=== PATIENT | female | born 1950 | race Caucasian/White ===

== ENCOUNTER 2016-07-02 12:09 | Emergency (ER) | payer OTHER ==
[~2016-07-02] VITALS: Ht 154.9 cm; Wt 49.0 kg
[~2016-07-02 12:09] MED LIST: IBUP400T22 PO; ULT50 PO
[2016-07-02 12:20] VITALS: Ht 154.9 cm; Wt 49.0 kg
--- NOTE | 2016-07-02 14:05 | ERD ---
ER Documentation Chief Complaint Date/Time DATE: 07/02/16 Chief Complaint Right foot erythema HPI The patient is a 65-year-old female with a history of hypertension and sciatica who presents to the Emergency Department with complaint of erythema of the right foot. The patient reports that two weeks ago she developed a small wound/ blister near the interdigital webspace between the third and fourth toes of the right foot. Since, she has developed spreading erythema, warmth and tenderness from that region, that extends to the dorsum of the foot and recently, towards the right pretibial region. She denies any fevers, chills, vomiting, myalgias. She describes the pain as aching in nature, and worse with palpation and weightbearing activity. The pain is improved with Tramadol (which she has been taking for her sciatica). She denies any numbness or weakness of the distal extremity. ROS All systems reviewed and are negative except as per history of present illness. Medications Home Meds Active Scripts Cephalexin* (Keflex*) 500 Mg Capsule, 500 MG PO QID for 7 Days, CAP Prov:DAMARIS MOSER PA-C 07/02/16 Sulfamethoxazole-Trimethoprim* (Bactrim* DS) 800-160 Mg Tab, 1 TAB PO BID for 10 Days, TAB Prov:DAMARIS MOSER PA-C 07/02/16 Tramadol HCl (Tramadol HCl) 50 Mg Tablet, 50 MG PO Q4 Y for PAIN, #20 TAB Prov:DAMARIS MOSER PA-C 07/02/16 Ibuprofen* (Motrin*) 400 Mg Tab, 400 MG PO Q6H Y for PAIN, #20 TAB Prov:RADHA WITT MD 06/04/16 Tramadol HCl (Tramadol HCl) 50 Mg Tablet, 50 MG PO Q4 Y for PAIN, #20 TAB Prov:RADHA WITT MD 06/04/16 Allergies Allergies: Coded Allergies: No Known Allergy (Unverified , 10/13/12) PMhx/Soc History of Surgery: Yes Anesthesia Reaction: No Hx Neurological Disorder: No Hx Respiratory Disorders: No Hx Psychiatric Problems: No Hx Miscellaneous Medical Probl: No Hx Alcohol Use: Yes (DAILY) Hx Substance Use: No Hx Tobacco Use: Yes Physical Exam Vitals Vital Signs Date Time Temp Pulse Resp B/P Pulse Ox O2 Delivery O2 Flow Rate FiO2 07/02/16 12:20 97.3 77 20 134/75 98 Physical Exam GENERAL: Well-developed, well-nourished, in no acute distress HEENT: Head is normocephalic, atraumatic. No scleral pallor or icterus. Pupils equal, round and reactive to light. Conjunctiva pink. Moist mucous membranes. Clear oropharynx. No lip or tongue swelling. NECK: Supple. Full range of motion. RESPIRATORY: Lungs are clear to auscultation bilaterally. Equal breath sounds. CARDIOVASCULAR: Regular rate and rhythm. S1 and S2 normal. No tachycardia. GASTROINTESTINAL: Abdomen is soft, non-tender, and non-distended. Normal bowel sounds. EXTREMITIES: No clubbing, cyanosis, or edema. Moving all extremities. Distal pulses are palpable, 2+ bilaterally. Capillary refill is less than 2 seconds. Compartments are soft. MUSCULOSKELETAL: No injury or deformities. NEUROLOGIC: The patient is alert, awake, and oriented x 3. No focal neurologic deficits. Gait is observed and normal. No ataxia. INTEGUMENT: Small open wound with minimal purulence to the interdigital webspace between the 3rd and 4th digits of the right foot. There is overlying warmth, erythema, and tenderness that extends from the region of the wound proximally to the dorsum of the right foot, and minimally with few red streaks to the right pretibial region. No crepitus. No skin sloughing. Compartments are soft. PSYCHIATRIC: Appropriate; Cooperative. Results 24 hrs Laboratory Tests Test 07/02/16 14:40 Bedside Glucose 105mg/dL Procedures/MDM This is a 65-year-old female presenting to the emergency department with complaint of spreading erythema surrounding a wound. The patient had a small wound to the interdigital webspace between the 3rd and 4th digits of the right foot, with overlying erythema, warmth and tenderness that extends proximally to the dorsum of the foot with minimal red/lymphatic streaking to the right pretibial region. However, the patient's oropharynx and airway was patent, and exhibited no breathing difficulties, wheezing, tongue swelling or lip swelling. Her vital signs were normal, and she was afebrile, with no recent history of fevers or chills. The differential diagnosis includes, but is not limited to, allergic reaction, insect bite, fungal infection, cellulitis, MRSA, impetigo, shingles, herpes simplex virus, burn, abscess, dermatitis, viral syndrome, candidiasis, medication reaction, Chauhan Syd syndrome, epidermolysis bullosa, toxic epidermal necrolysis, meningococcemia. After rest, the patient has no new complaints, and the patient remains stable with appropriate vital signs and no signs of respiratory distress. Upon my review and interpretation of the patient's presentation and overall ER course, I believe the patient's symptoms are most consistent with wound with surrounding cellulitis of right lower extremity. The patient's case was discussed with ED supervising physician, Dr. Bates, who evaluated the patient bedside. He discussed IV antibiotics vs. oral antibiotics with the patient, as well as inpatient admission for IV antibiotics vs. discharge home with oral antibiotics. Through shared decision-making, the patient and Dr. Bates agreed upon discharge home at this time, with no laboratory analysis, no IV antibiotics, and with prescriptions for Bactrim DS, Keflex and Tramadol for pain. Strict return precautions were given, and the patient was advised to return immediately for any new or worsening symptoms. At this time the patient is in stable condition and therefore can be discharged home with prescriptions for Tramadol, Bactrim and Keflex, and strict return precautions for signs of deteriorating or worsening condition. The patient is strongly advised to follow up with her primary care provider within 2 days for wound check, reevaluation and further management, or return to the ER sooner for worsening symptoms. Additionally, she is advised to return sooner if she notices the erythema spreading beyond the current borders. I shared my medical decision making and plan with the patient at length and in great detail, and she verbally understands and agrees with the plan for further observation and care as an outpatient. At the time of discharge all questions were answered. Departure Diagnosis: Primary Impression: Cellulitis of right lower extremity Additional Impression: Open wound of right foot Encounter type: initial encounter Qualified Code: S91.301A - Open wound of right foot, initial encounter Condition: Stable Patient Instructions: Cellulitis Referrals: SIGRID JOHNSON DPM Additional Instructions: Follow up in 2 days for reevaluation and further management. Return to the ED sooner for any new or worsening symptoms, including spreading redness, development of fevers, vomiting, or any other concerning symptoms. DAMARIS MOSER PA-C Jul 02, 2016 14:05
[2016-07-02] MEDS ORDERED: CEPH-443 PO (14:06)
[2016-07-02] MEDS ORDERED: BACTDS PO (14:06)
[2016-07-02] MEDS ORDERED: ULT50 PO (14:06)
[2016-07-07] MEDS ORDERED: LOSA25TA47 PO (17:41)
== END 2016-07-02 15:01 | disposition home or self-care (01) ==
LOC: FTE 12:09
DX: L03.115 Cellulitis of right lower limb (principal); I10 Essential (primary) hypertension; X58.XXXA Exposure to other specified factors, initial encounter; Y92.9 Unspecified place or not applicable; Z87.891 Personal history of nicotine dependence
CPT/HCPCS: 82962; Z7502; 99284

== ENCOUNTER 2016-07-07 14:20 | Inpatient (IN) | payer OTHER ==
[~2016-07-07] VITALS: Ht 154.9 cm; Wt 44.1 kg
[~2016-07-07 14:20] MED LIST changes: +BACTDS PO; +CEPH-443 PO; +TRAM50TA2 PO; -ULT50 PO
--- NOTE | 2016-07-07 15:46 | ERA ---
ER Documentation Chief Complaint Date/Time DATE: 07/07/16 TIME: 15:45 Chief Complaint BIB RA FOR EVAL OF RIGHT TOE PAIN HPI The patient is a 65-year-old female, presenting to the ER because of right foot pain for the last week. She was seen in the ER for 5 days ago and treated with Keflex and Bactrim without any response. The pain is 9/10, worse with walking. She denies fever, chills, neck pain, chest pain, dyspnea, abdominal pain, vomiting, dysuria, diarrhea. She thought it began from a blister at the base of the right third and fourth toes. She smokes half a pack a day, drinks socially Past medical history: Hypertension Past surgical history: Hysterectomy ROS All systems reviewed and are negative except as per history of present illness. Medications Home Meds Active Scripts Cephalexin* (Keflex*) 500 Mg Capsule, 500 MG PO QID for 7 Days, CAP Prov:DAMARIS MOSER PA-C 07/02/16 Sulfamethoxazole-Trimethoprim* (Bactrim* DS) 800-160 Mg Tab, 1 TAB PO BID for 10 Days, TAB Prov:DAMARIS MOSER PA-C 07/02/16 Tramadol HCl (Tramadol HCl) 50 Mg Tablet, 50 MG PO Q4 Y for PAIN, #20 TAB Prov:DAMARIS MOSER PA-C 07/02/16 Ibuprofen* (Motrin*) 400 Mg Tab, 400 MG PO Q6H Y for PAIN, #20 TAB Prov:RADHA WITT MD 06/04/16 Tramadol HCl (Tramadol HCl) 50 Mg Tablet, 50 MG PO Q4 Y for PAIN, #20 TAB Prov:RADHA WITT MD 06/04/16 Allergies Allergies: Coded Allergies: No Known Allergy (Unverified , 10/13/12) PMhx/Soc History of Surgery: Yes Anesthesia Reaction: No Hx Neurological Disorder: No Hx Respiratory Disorders: No Hx Psychiatric Problems: No Hx Miscellaneous Medical Probl: No Hx Alcohol Use: No Hx Substance Use: No Hx Tobacco Use: No Physical Exam Vitals Vital Signs Date Time Temp Pulse Resp B/P Pulse Ox O2 Delivery O2 Flow Rate FiO2 07/07/16 17:14 Nasal Cannula 07/07/16 17:09 97.9 62 18 126/62 98 Room Air 07/07/16 14:26 97.5 75 16 135/70 100 Physical Exam Const: [] Head: Atraumatic Eyes: Normal Conjunctiva ENT: Normal External Ears, Nose and Mouth. Neck: Full range of motion..~ No meningismus. Resp: Clear to auscultation bilaterally Cardio: Regular rate and rhythm, no murmurs Abd: Soft, non tender, non distended. Normal bowel sounds Skin: No petechiae or rashes Back: No midline or flank tenderness Ext: No cyanosis, or edema Neur: Awake and alert Psych: Normal Mood and Affect Result Diagram: 07/07/16 1610 07/07/16 1610 Results 24 hrs Laboratory Tests Test 07/07/16 16:10 Activated Partial Thromboplast Time 24.9Sec Alanine Aminotransferase (ALT/SGPT) 16IU/L Albumin 4.2g/dl Albumin/Globulin Ratio 1.02 Alkaline Phosphatase 96IU/L Anion Gap 19 Aspartate Amino Transf (AST/SGOT) 16IU/L Blood Urea Nitrogen 12mg/dl Calcium Level 10.0mg/dl Carbon Dioxide Level 22mmol/L Chloride Level 101mmol/L Creatinine 0.82mg/dl Direct Bilirubin 0.00mg/dl Globulin 4.10g/dl Glucose Level 112mg/dl Hematocrit 44.1% Hemoglobin 15.1g/dl INR International Normalized Ratio 0.93 Indirect Bilirubin 0.1mg/dl Lactic Acid Level 1.4mmol/L Lymphocytes # 0.810^3/ul Lymphocytes % 6.0% Mean Corpuscular Hemoglobin 33.3pg Mean Corpuscular Hemoglobin Concent 34.3g/dl Mean Corpuscular Volume 97.2fl Mean Platelet Volume 9.3fl Monocytes # 0.710^3/ul Monocytes % 5.0% Neutrophils # 11.810^3/ul Neutrophils % 89.0% Platelet Count 63936^3/UL Potassium Level 3.2mmol/L Prothrombin Time 12.5Sec Prothrombin Time Ratio 1.0 Red Blood Count 4.5410^6/ul Red Cell Distribution Width 12.6% Sodium Level 139mmol/L Total Bilirubin 0.1mg/dl Total Protein 8.3g/dl White Blood Count 13.310^3/ul Current Medications Medications (Trade) Dose Ordered Sig/Maureen Route PRN Reason Start Time Stop Time Status Last Admin Dose Admin Vancomycin HCl 250 ml @ 125 mls/hr ONCE IVPB 07/07/16 16:00 07/07/16 17:59 Piperacillin Sod/ Tazobactam Sod (Zosyn 3.375gm/ 100 ml (Pmx)) 100 ml @ 200 mls/hr ONCE ONCE IVPB 07/07/16 16:00 07/07/16 16:29 DC 07/07/16 16:48 Morphine Sulfate (morphine) 4 mg ONCE STAT IV 07/07/16 16:28 07/07/16 16:29 DC 07/07/16 16:48 Ondansetron HCl (Zofran Inj) 4 mg ONCE STAT IV 07/07/16 16:28 07/07/16 16:29 DC 07/07/16 16:47 Potassium Chloride (Klor-Con 20) 40 meq ONCE STAT PO 07/07/16 17:20 07/07/16 17:23 DC Procedures/MDM EKG: Read by emergency physician Rate/Rhythm: Normal Sinus Rhythm 60 beats per min QRS, ST, T-waves: No ST elevation, no T wave inversion, PVC, nonspecific ST abnormality Impression: Abnormal EKG [place] [address] Radiology Main Line: [phone] DIAGNOSTIC IMAGING REPORT Patient: TAYLOR MITTAL : 1950 Age: 65 Sex: F MR #: [id number] DOS: 07/07/16 1600 Ordering MD: RINA CHEUNG MD Location: E/R Room/Bed: PROCEDURE: Right foot series CLINICAL INDICATION: Pain TECHNIQUE: Three views. COMPARISON: None FINDINGS: Soft tissue swelling is present of the fourth and fifth distal digits. The appearance of an acute nondisplaced fracture of the fifth distal phalangeal tuft is noted. No evidence for intra-articular extension is present. No radio dense foreign bodies are present. The joint spaces are well maintained. Generalized osteopenia is present. Mild joint space narrowing is present of the first metatarsal phalangeal joint and the first interphalangeal joint. No evidence to suggest osteomyelitis is noted. IMPRESSION: 1. Soft tissue swelling of the distal fourth and fifth digits. 2. Nondisplaced , closed, fracture of the fifth distal phalangeal tuft without intra-articular extension. 3. Mild joint space narrowing of the first metatarsophalangeal and first interphalangeal joint. RPTAT: HDC .Sandy Dee MD, MD Date Time Electronically viewed and signed by .Sandy Dee MD, MD on 07/07/2016 17: 02 .C/ CC: RINA CHEUNG MD [place] [address] Radiology Main Line: [phone] DIAGNOSTIC IMAGING REPORT Patient: TAYLOR MITTAL : 1950 Age: 65 Sex: F MR #: [id number] DOS: 07/07/16 1600 Ordering MD: RINA CHEUNG MD Location: FTE Room/Bed: PROCEDURE: XR Chest. CLINICAL INDICATION: Sepsis. Cough. TECHNIQUE: Single frontal view. COMPARISON: None. FINDINGS: The lungs are clear. The heart size is normal. There is no pleural effusion. There is no pneumothorax. IMPRESSION: 1. Normal chest radiograph. RPTAT: QQ .Radha Villarreal MD, MD Date Time Electronically viewed and signed by .Radha Villarreal MD, MD on 07/07/2016 16:47 .R/ CC: RINA CHEUNG MD MEDICAL MAKING DECISION: The patient is a 65-year-old female, presenting with acute right foot cellulitis, failed outpatient therapy acute hypokalemia. she was treated with vancomycin IV, Zosyn IV, morphine 4 mg IV for pain, Zofran 4 IV for nausea and potassium chloride 40 mEq p.o. she had an x-ray that shows a fracture at the right fifth distal phalanx, however she has no tenderness Departure Diagnosis: Primary Impression: Cellulitis of right foot Additional Impressions: Hypokalemia Fracture of fifth toe, right, closed Condition: Stable Comments I discussed the findings with the patient. I discussed the patient with his physician Dr. Dietz who was made aware of the lab, the treatment, the patient condition. The patient is admitted to medical surgery bed at 5:25 PM RINA CHEUNG MD Jul 07, 2016 15:46
[2016-07-07] MEDS ORDERED: VANCOMYCIN 1 GM (PMX) 250 ML IVPB SCH (16:00)
[2016-07-07] MEDS ORDERED: PIPER-TAZO 3.375 GM IV (PMX) 100 ML IVPB ONE (16:00)
[2016-07-07] MEDS ORDERED: ONDANSETRON 4 MG INJ IV STA (16:28)
[2016-07-07] MEDS ORDERED: morphine 4 MG/ML VIAL IV STA (16:28)
[2016-07-07 16:36] LABS: HEMATOCRIT 44.1 % (37.0-47.0); HEMOGLOBIN 15.1 g/dl (12.0-16.0); MEAN CORPUSCULAR HEMOGLOBIN 33.3 pg (29.0-33.0); MEAN CORPUSCULAR HGB CONC 34.3 g/dl (32.0-37.0); MEAN CORPUSCULAR VOLUME 97.2 fl (82.0-101.0); MEAN PLATELET VOLUME 9.3 fl (7.4-10.4); PLATELET COUNT 267 10^3/UL (140-440); RED BLOOD COUNT 4.54 10^6/ul (4.20-5.40); RED CELL DISTRIBUTION WIDTH 12.6 % (11.5-14.5); UNCORRECTED WBC 13.3 10^3/ul (4.8-10.8); WHITE BLOOD COUNT 13.3 10^3/ul (4.8-10.8)
[2016-07-07 16:38] LABS: CONDITION 1; LH ANALYZER COMMENTS 1
[2016-07-07 16:43] LABS: ALBUMIN 4.2 g/dl (3.3-4.9)
[2016-07-07 16:44] LABS: POTASSIUM 3.2 mmol/L (3.5-5.1)
[2016-07-07 16:46] LABS: ALBUMIN/GLOBULIN RATIO 1.02; BILIRUBIN,INDIRECT 0.1 mg/dl (0-1.1); BILIRUBIN,TOTAL 0.1 mg/dl (0.2-1.3); CREATININE 0.82 mg/dl (0.44-1.00); INR 0.93; PROTIME 12.5 Sec (12.2-14.2); TOTAL PROTEIN 8.3 g/dl (6.1-8.1)
[2016-07-07 16:47] LABS: PARTIAL THROMBOPLASTIN TIME 24.9 Sec (25.0-35.0)
--- NOTE | 2016-07-07 16:47 | RADRPT ---
PROCEDURE: XR Chest. CLINICAL INDICATION: Sepsis. Cough. TECHNIQUE: Single frontal view. COMPARISON: None. FINDINGS: The lungs are clear. The heart size is normal. There is no pleural effusion. There is no pneumothorax. IMPRESSION: 1. Normal chest radiograph. RPTAT: QQ .Kendrick Villarreal MD, Date Time Electronically viewed and signed by .Kendrick Villarreal MD, on 07/07/2016 16:47 .R/
--- NOTE | 2016-07-07 17:03 | RADRPT ---
PROCEDURE: Right foot series CLINICAL INDICATION: Pain TECHNIQUE: Three views. COMPARISON: None FINDINGS: Soft tissue swelling is present of the fourth and fifth distal digits. The appearance of an acute n ondisplaced fracture of the fifth distal phalangeal tuft is noted. No evidence for intra-articular extension is present. No radio dense foreign bodies are present. The joint spaces are well maintai ermias. Generalized osteopenia is present. Mild joint space narrowing is present of the first metatar padmini phalangeal joint and the first interphalangeal joint. No evidence to suggest osteomyelitis is n oted. IMPRESSION: 1. Soft tissue swelling of the distal fourth and fifth digits. 2. Nondisplaced , closed, fracture of the fifth distal phalangeal tuft without intra-articular exte nsion. 3. Mild joint space narrowing of the first metatarsophalangeal and first interphalangeal joint. RPTAT: HDC .Sandy Dee MD, Date Time Electronically viewed and signed by .Sandy Dee MD, on 07/07/2016 17:02 .C/
[2016-07-07] MEDS ORDERED: POTASSIUM CHLORIDE (SR) 20 MEQ TAB PO STA (17:20)
[2016-07-07 17:29] LABS: LYMPHOCYTES # 0.8 10^3/ul (0.8-2.9); MONOCYTE # 0.7 10^3/ul (0.3-0.9); NEUTROPHIL # 11.8 10^3/ul (1.6-7.5)
[2016-07-07] MEDS ORDERED: LOSA25TA2 PO (17:41)
[2016-07-07] MEDS ORDERED: AMLO-147 PO (17:41)
[2016-07-07] MEDS ORDERED: ATOR20TA38 PO (17:41)
[2016-07-07] MEDS ORDERED: METO-407 PO (17:41)
[2016-07-07] MEDS ORDERED: HYD25 PO (17:42)
[2016-07-07] MEDS ORDERED: SILVER SULFADIAZINE 1% 50 GM CR TOP ONE (18:30)
[2016-07-07 19:00] VITALS: BP 150/66; RESP 19
[2016-07-07] MEDS ORDERED: NACL 0.9% 3 ML SYG IV SCH (19:00)
[2016-07-07] MEDS ORDERED: ONDANSETRON 4 MG INJ IV PRN (19:00)
[2016-07-07] MEDS ORDERED: BISACODYL (EC) 5 MG TAB PO PRN (19:00)
[2016-07-07] MEDS ORDERED: MAGNESIUM HYDROXIDE 30ML CUP PO PRN (19:00)
[2016-07-07] MEDS ORDERED: ZOLPIDEM 5 MG TAB PO PRN (19:00)
[2016-07-07] MEDS ORDERED: ACETAMINOPHEN 325 MG TAB PO PRN (19:00)
[2016-07-07] MEDS ORDERED: VANCOMYCIN IV PER PHARMACY XX SCH (19:00)
[2016-07-07 19:12] VITALS: TEMP 97.7
[2016-07-07] MEDS ORDERED: hydrALAzine 20 MG INJ IV PRN (19:30)
--- NOTE | 2016-07-07 19:35 | RADRPT ---
PROCEDURE: US Lower extremity Arteries. CLINICAL INDICATION: Nonhealing right foot ulcer. TECHNIQUE: Multiple longitudinal and transverse images of the bilateral lower extremity arteries w ere obtained with biggs scale and color Doppler imaging. COMPARISON: No prior studies are available for comparison. FINDINGS: Location RightWaveform EIA90.9 cm/secmonophasic CFA47.8 cm/secmonophasic DFA56.2 cm/secmonophasic PSFA40.0 cm/secmonophasic MSFA35.3 cm/secmonophasic DSFA59.1 cm/secmonophasic POP23.9 cm/secmonophasic LeftWaveform CWL664.4 cm/secmonophasic TEM301.2 cm/secmonophasic WZY503.1 cm/secmonophasic XKFF540.2 cm/secmonophasic VNQM512.6 cm/secmonophasic DSFA65.1 cm/secmonophasic POP46.9 cm/secmonophasic The bilateral lower extremity arteries are heavily calcified. The major bilateral calf arteries are not visualized. Collateral arteries with monophasic waveforms are noted in both calves. IMPRESSION: 1. Heavy calcification of bilateral extremity arteries. 2. Monophasic waveforms throughout the visualized bilateral extremity arteries, indicative of inflow disease due to upstream stenoses. 3. Elevated peak systolic velocities within the left lower extremity, from the external iliac arter y through the mid superficial femoral artery, indicative of multifocal stenoses. This could be furth er evaluated with a CTA runoff if clinically warranted. 4. The major bilateral calf arteries are not visualized. Collateral arteries with monophasic wavefo kathi are noted in both calves. RPTAT: HTAR .Willam Michaud MD, Date Time Electronically viewed and signed by .Willam Michaud MD, on 07/07/2016 19:35 .R/
[2016-07-07 20:00] VITALS: BP 150/66; PULSE 67; RESP 19; Ht 154.9 cm; Wt 44.1 kg
[2016-07-07] MEDS: ATORVASTATIN 20 MG TAB PO SCH (20:17)
[2016-07-07] MEDS: METOPROLOL 100 MG TAB PO SCH (20:18)
[2016-07-07] MEDS: FAMOTIDINE 20 MG TAB PO SCH (20:18)
[2016-07-07] MEDS: morphine 2 MG INJ IV PRN (20:20)
--- NOTE | 2016-07-07 20:21 | HP ---
DATE OF ADMISSION: 07/07/2016 TIME OF EVALUATION: 1830 REASON FOR ADMISSION: Right foot cellulitis, failed outpatient treatment. CONSULTATIONS: 1. Milo Ratliff D.P.M. Podiatry. 2. Dr. Lowell Melendez, Infectious Disease. HISTORY OF PRESENT ILLNESS: This is a 65-year-old female with past medical history of essential hypertension, dyslipidemia and sciatica who came to the emergency room with a chief complaint of worsening right foot wound. The patient was evaluated in the ER on 07/02/2016 with the same complaints, and the patient was discharged home on antibiotics. The patient's wound was not getting better, and hence the patient came back to the emergency room today. The patient had this wound between her right 3rd and 4th toe that started developing as a blister with subsequent erythema and pain. The patient denied any obvious injuries to the area of interest. The patient denied any insect bites or spider bites. However, the patient verbalized that she has been around "in a place where there are spiders." The patient denied any associated fevers or chills. The patient verbalized right foot pain and numbness. There was no reported pruritus. In the emergency room, the patient was afebrile. She was treated with IV vancomycin and IV Zosyn. The patient underwent a right foot x-ray in the emergency room that showed soft-tissue swelling of the distal 4th and 5th digits with a nondisplaced closed fracture of the 5th distal phalangeal tuft without intra-articular extension. PAST MEDICAL HISTORY: Essential hypertension, dyslipidemia. PAST SURGICAL HISTORY: Hysterectomy. HOME MEDICATIONS: 1. Amlodipine 10 mg p.o. daily. 2. Atorvastatin 20 mg p.o. at bedtime. 3. Cozaar 25 mg p.o. daily. 4. Lopressor 100 mg p.o. b.i.d. 5. Hydrochlorothiazide 25 mg p.o. daily. 6. Tramadol 50 mg p.o. q.4 hours p.r.n. pain. ALLERGIES: NO KNOWN DRUG ALLERGIES. SOCIAL HISTORY: The patient lives at home. Denies any history of tobacco, alcohol or illicit drug use. REVIEW OF SYSTEMS: A 12-point review of systems was made, and the review of systems is negative other than what is mentioned in the history of present illness. PHYSICAL EXAMINATION: VITAL SIGNS: Temperature 97.9, pulse rate 62, respiratory rate 18, blood pressure 126/62, oxygen saturation 96% on room air. GENERAL: This is a well-built, well-nourished female lying in bed in no apparent distress. HEENT: Head normocephalic and atraumatic. Eyes: Anicteric sclerae. Conjunctivae clear. ENT: Nasal septum is midline. Oral mucosa is moist. NECK: Supple. No JVD noticed. RESPIRATORY: Bilaterally clear to auscultation. No adventitious breath sounds. No use of accessory muscles of respiration. CARDIAC: Regular rate and rhythm. No murmurs heard. ABDOMEN: Soft, nontender, nondistended. Bowel sounds positive in all 4 quadrants. GENITOURINARY: Deferred. EXTREMITIES: No cyanosis, no clubbing, no edema. Peripheral pulses palpable. Right foot erythema between the 3rd and 4th digits with radiation of erythema on the dorsal surface with tenderness to touch in the area. NEUROLOGIC: The patient is awake, alert and oriented. Cranial nerves are grossly intact. LABORATORY AND DIAGNOSTIC DATA: WBC 13.3, hemoglobin 15.1, hematocrit 44.1, platelet count 267. Sodium 139, potassium 3.2, chloride 101, carbon dioxide 22 , anion gap 19, BUN 12, creatinine 0.82, glucose 112, calcium 10.0, AST 16, alkaline phosphatase 96, albumin 4.2. PT 12.5, INR 0.93, APTT 24.9. Right foot x-ray. Soft-tissue swelling of the distal 4th and 5th digits. Nondisplaced closed fracture of the distal phalangeal tuft without intra- articular extension. Mild joint space narrowing of the 1st metatarsophalangeal and 1st interphalangeal joint. Chest x-ray. Normal chest radiograph. Twelve-lead EKG. Normal sinus rhythm. IMPRESSION: This is a 65-year-old female who has a right foot cellulitis that has failed outpatient treatment who will get admitted here for further treatment and evaluation. ASSESSMENT AND PLAN: 1. Right foot cellulitis. The patient was seen and evaluated by Podiatry. Podiatry is planning for debridement of ulceration and avulsion of the right hallux ingrown nail. The patient will be provided with adequate pain control. The patient will be started on appropriate antibiotics. Infectious Diseases will be called for antibiotic management. 2. Essential hypertension. The patient's home antihypertensives will be resumed. The patient will also be started on p.r.n. antihypertensives for any systolic blood pressure readings greater than 160 mmHg. 3. Dyslipidemia. The patient's statins will be resumed. A fasting lipid panel will be obtained. PLAN: The patient will be admitted to inpatient medical/surgical floor. The patient will be started on a low-cholesterol diet. She will be started on DVT prophylaxis and gastrointestinal prophylaxis. The patient will remain a FULL CODE. The rest of the patient's management will be based on the clinical course , the results of diagnostic studies, and inputs from consultants. Based on the patient's clinical presentation, she most probably requires at least 2-midnights' stay for further management and evaluation of her clinical presentation. The case and management of this patient was fully discussed with Dr. Dietz. Approximately 50 minutes was spent on the history and physical of this patient. BOBY DIETZ MD, AM/ASAEL Conf#: [id number] DID#: [id number] MTDD
--- NOTE | 2016-07-07 21:40 | CONS ---
DATE OF ADMISSION: 07/07/2016 DATE OF CONSULTATION: 07/07/2016 REASON FOR CONSULTATION: Right foot cellulitis. HISTORY OF PRESENT ILLNESS: This is a 65-year-old female who had a blister to the right foot, was seen in the ER a week ago, and discharged with Bactrim and Keflex. The patient with worsening on findings. She relates pain to the right foot with worsening redness. The patient currently in the process of being admitted. PAST MEDICAL HISTORY: Hypertension, history of tobacco use. PAST SURGICAL HISTORY: Hysterectomy. REVIEW OF SYSTEMS: Right foot pain, worse with ambulation. Denies any fever, nausea, vomiting, chills. MEDICATIONS: Include: 1. Keflex. 2. Bactrim. 3. Tramadol. 4. Ibuprofen. ALLERGIES: NO KNOWN DRUG ALLERGIES. PHYSICAL EXAMINATION: VITAL SIGNS: Temperature 97.9, pulse is 62, respiratory rate 18, blood pressure 126/62, pulse ox is 98 per nasal cannula, 2 liters. EXTREMITIES: The patient has 1+ DP bilaterally, 2+ PT, 2+ popliteal pulses bilaterally. The patient has ulceration within the third and fourth interspace with necrosis of skin and subcutaneous tissue. There is a malodor present. There is ascending cellulitis of the dorsal aspect of the foot and ankle with lymphangitis. The patient has pain with passive range of motion of the toes, third and fourth. The patient has 5/5 dorsiflexion, plantar flexion of the right ankle. The patient has ingrowing nail to the right hallux, medial border. LABORATORY DATA: WBC 13.3, hemoglobin 15.1, hematocrit 40.1, platelets 267. Sodium 139, potassium 3.2, chloride 101, CO2 of 22, BUN 12, creatinine 0.8, glucose 112. X-rays reveal soft tissue swelling of the fourth and fifth toes, nondisplaced closed fracture of the fifth distal phalangeal tuft, and mild joint space narrowing of the first MPJ and IPJ. Chest x-ray: Lungs clear. Heart size is normal. No pleural effusion, no pneumothorax. Culture results are pending. ASSESSMENT: 1. Right foot cellulitis. 2. Failed outpatient oral antibiotics. 3. Ulceration right foot, third and fourth toes, with necrosis of skin and subcutaneous tissue. 4. Ingrowing nail, right hallux, medial border. PLAN: The patient seen and evaluated. Initiate empiric antibiotics. The patient on vancomycin and Zosyn. Obtain wound cultures. Observe for clinical response. Discussed debridement and partial nail avulsion of the right hallux nail. Noninvasive arterial studies ordered. Further decision making pending clinical response. Thank you for this consultation. We will continue to follow along. Dictated By: CARLOS HAQUE/ASAEL Conf#: [id number] DID#: [id number] CC: MAYA STOUT MD;*EndCC* MTDD
[2016-07-07] MEDS: PIPER-TAZO 3.375 GM IV (PMX) 100 ML IVPB SCH (22:43)
[2016-07-07 22:46] VITALS: BP 112/59; PULSE 52; RESP 18
[2016-07-08] MEDS ORDERED: SILVER SULFADIAZINE 1% 50 GM CR TOP ONE (02:00)
[2016-07-08] MEDS: PIPER-TAZO 3.375 GM IV (PMX) 100 ML IVPB SCH ×3 (05:43→21:47)
[2016-07-08] MEDS: morphine 2 MG INJ IV PRN ×4 (05:48→20:41)
[2016-07-08 06:35] LABS: BASOPHILS % 0.3 % (0.0-2.0); EOSINOPHILS # 0.1 10^3/ul (0.0-0.5); EOSINOPHILS % 0.8 % (0.0-7.0); HEMOGLOBIN 13.3 g/dl (12.0-16.0); LYMPHOCYTES # 1.1 10^3/ul (0.8-2.9); LYMPHOCYTES % 16.1 % (15.0-51.0); MEAN CORPUSCULAR HEMOGLOBIN 33.6 pg (29.0-33.0); MEAN CORPUSCULAR VOLUME 98.7 fl (82.0-101.0); MONOCYTE # 0.4 10^3/ul (0.3-0.9); MONOCYTES % 5.8 % (0.0-11.0); NEUTROPHIL # 5.5 10^3/ul (1.6-7.5); PLATELET COUNT 227 10^3/UL (140-440); RED BLOOD COUNT 3.95 10^6/ul (4.20-5.40); RED CELL DISTRIBUTION WIDTH 12.6 % (11.5-14.5); UNCORRECTED WBC 7.1 10^3/ul (4.8-10.8); WHITE BLOOD COUNT 7.1 10^3/ul (4.8-10.8)
[2016-07-08 06:36] LABS: ALBUMIN 3.3 g/dl (3.3-4.9)
[2016-07-08 06:37] LABS: POTASSIUM 4.6 mmol/L (3.5-5.1)
[2016-07-08 06:39] LABS: ALBUMIN/GLOBULIN RATIO 1.17; BILIRUBIN,INDIRECT 0.1 mg/dl (0-1.1); BILIRUBIN,TOTAL 0.1 mg/dl (0.2-1.3); CREATININE 0.63 mg/dl (0.44-1.00); TOTAL PROTEIN 6.1 g/dl (6.1-8.1)
[2016-07-08 06:40] LABS: CALCIUM 9.4 mg/dl (8.4-10.2)
[2016-07-08 06:43] LABS: CHOL/HDL RATIO 4.5 RATIO; PHOSPHORUS 2.9 mg/dl (2.5-4.9)
[2016-07-08 06:46] LABS: CONDITION 1
[2016-07-08 07:12] LABS: THYROID STIMULATING HORMONE 0.994 MIU/L (0.465-4.680)
[2016-07-08 07:19] VITALS: BP 124/59; RESP 19
[2016-07-08 07:22] VITALS: BP 101/49; RESP 19
--- NOTE | 2016-07-08 07:42 | PN ---
Date/Time of Note Date/Time of Note DATE: 07/08/16 TIME: 07:42 Assessment/Plan VTE Prophylaxis VTE Prophylaxis Intervention: LMWH Lines/Catheters IV [facility] (from [facility] Saline Lock Assessment/Plan Chief Complaint/Hosp Course 1. Right foot cellulitis. The patient was seen and evaluated by Podiatry. Podiatry is planning for debridement of ulceration and avulsion of the right hallux ingrown nail. The patient will be provided with adequate pain control. The patient will be maintained on appropriate antibiotics. 2. Essential hypertension. Continue routine antihypertensives. Continue p.r.n. antihypertensives for any systolic blood pressure readings greater than 160 mmHg. 3. Dyslipidemia. Continue statins. 4. Fluids, electrolytes, and nutrition. Low cholesterol diet. 5. DVT prophylaxis. Subcutaneous Lovenox. 6. Gastrointestinal prophylaxis. Histamine 2 receptor blockers. 7. Plan. Continue pain control. Continue antibiotics. Await further recommendations from podiatry and infectious diseases. Case discussed with Dr. Dietz. Problems: Subjective 24 Hr Interval Summary Free Text/Dictation Complains of right foot pain. Exam/Review of Systems Vital Signs Vitals Vital Signs Date Time Temp Pulse Resp B/P Pulse Ox O2 Delivery O2 Flow Rate FiO2 07/08/16 07:22 98.1 64 19 101/49 98 07/07/16 20:00 Room Air Intake and Output 07/07/16 07/07/16 07/08/16 15:00 23:00 07:00 Intake Total 200 ml Balance 200 ml Exam GENERAL: This is a well-built, well-nourished female lying in bed in no apparent distress. HEENT: Head normocephalic and atraumatic. Eyes: Anicteric sclerae. Conjunctivae clear. ENT: Nasal septum is midline. Oral mucosa is moist. NECK: Supple. No JVD noticed. RESPIRATORY: Bilaterally clear to auscultation. No adventitious breath sounds. No use of accessory muscles of respiration. CARDIAC: Regular rate and rhythm. No murmurs heard. ABDOMEN: Soft, nontender, nondistended. Bowel sounds positive in all 4 quadrants. GENITOURINARY: Deferred. EXTREMITIES: No cyanosis, no clubbing, no edema. Peripheral pulses palpable. Right foot erythema between the 3rd and 4th digits with radiation of erythema on the dorsal surface with tenderness to touch in the area. NEUROLOGIC: The patient is awake, alert and oriented. Cranial nerves are grossly intact. Results Result Diagram: 07/08/16 0519 07/08/16 0519 Results 24 hrs Laboratory Tests Test 07/07/16 16:10 07/07/16 18:00 07/07/16 20:50 07/08/16 05:19 Activated Partial Thromboplast Time 24.9 L Alanine Aminotransferase (ALT/SGPT) 16 18 Albumin 4.2 3.3 Albumin/Globulin Ratio 1.02 1.17 Alkaline Phosphatase 96 74 Anion Gap 19 H 17 H Aspartate Amino Transf (AST/SGOT) 16 13 L Blood Urea Nitrogen 12 11 Calcium Level 10.0 9.4 Carbon Dioxide Level 22 22 Chloride Level 101 108 Creatinine 0.82 0.63 Direct Bilirubin 0.00 0.00 Erythrocyte Sedimentation Rate 51 H Globulin 4.10 H 2.80 Glucose Level 112 76 Hematocrit 44.1 39.0 Hemoglobin 15.1 13.3 INR International Normalized Ratio 0.93 Indirect Bilirubin 0.1 0.1 Lactic Acid Level 1.4 1.1 1.0 Lymphocytes # 0.8 1.1 Lymphocytes % 6.0 L 16.1 Mean Corpuscular Hemoglobin 33.3 H 33.6 H Mean Corpuscular Hemoglobin Concent 34.3 34.0 Mean Corpuscular Volume 97.2 98.7 Mean Platelet Volume 9.3 10.0 Monocytes # 0.7 0.4 Monocytes % 5.0 5.8 Neutrophils # 11.8 H 5.5 Neutrophils % 89.0 H 77.0 Platelet Count 267 227 Potassium Level 3.2 L 4.6 Prothrombin Time 12.5 Prothrombin Time Ratio 1.0 Red Blood Count 4.54 3.95 L Red Cell Distribution Width 12.6 12.6 Sodium Level 139 142 Total Bilirubin 0.1 L 0.1 L Total Protein 8.3 H 6.1 # White Blood Count 13.3 H 7.1 # Basophils # 0.0 Basophils % 0.3 Cholesterol Level 173 Cholesterol/HDL Ratio 4.5 Eosinophils # 0.1 Eosinophils % 0.8 Free Thyroxine 1.05 HDL Cholesterol 38 Hemoglobin A1c 5.0 LDL Cholesterol, Calculated 105 Magnesium Level 2.0 Nucleated Red Blood Cells # 0.0 Nucleated Red Blood Cells % 0.0 Phosphorus Level 2.9 Thyroid Stimulating Hormone (TSH) 0.994 Triglycerides Level 151 H Medications Medications Current Medications Ondansetron HCl (Zofran Inj) 4 mg Q6H PRN IV NAUSEA AND/OR VOMITING; Start 07/07 at 19:00 Acetaminophen (Tylenol Tab) 650 mg Q6H PRN PO PAIN LEVEL 1-3 OR FEVER; Start at 19:00 Acetaminophen/ Hydrocodone Bitart ([place] (5/325)) 1 tab Q6H PRN PO MODERATE PAIN LEVEL 4-6; Start 07/07/16 at 19:00 Morphine Sulfate (morphine) 2 mg Q4H PRN IV SEVERE PAIN LEVEL 7-10 Last administered on 07/08/16 05:48; Admin Dose 2 MG; Start 07/07/16 at 19:00 Magnesium Hydroxide (Milk Of Mag) 30 ml DAILY PRN PO CONSTIPATION; Start at 19:00 Bisacodyl (Dulcolax) 5 mg DAILY PRN PO CONSTIPATION; Start 07/07/16 at 19:00 Zolpidem Tartrate (Ambien) 5 mg QHS PRN PO SLEEP; Start 07/07/16 at 19:00 Famotidine (Pepcid) 20 mg Q12 PO Last administered on 07/07/16 20:18; Admin Dose 20 MG; Start 07/07/16 at 21:00 Enoxaparin Sodium (Lovenox) 40 mg DAILY SC ; Start 07/08/16 at 09:00 Amlodipine Besylate (Norvasc) 10 mg DAILY PO ; Start 07/08/16 at 09:00 Atorvastatin Calcium (Lipitor) 20 mg QHS PO Last administered on 07/07/16 20:17 ; Admin Dose 20 MG; Start 07/07/16 at 21:00 Hydrochlorothiazide (Hydrochlorothiazide) 25 mg DAILY PO ; Start 07/08/16 at 09: 00 Losartan Potassium (Cozaar) 25 mg DAILY PO ; Start 07/08/16 at 09:00 Metoprolol Tartrate 100 mg 100 mg BID PO Last administered on 07/07/16 20:18; Admin Dose 100 MG; Start 07/07/16 at 21:00 Piperacillin Sod/ Tazobactam Sod (Zosyn 3.375gm/ 100 ml (Pmx)) 100 ml @ 200 mls /hr Q8 IVPB Last administered on 07/08/16 05:43; Admin Dose 200 MLS/HR; Start 07/07/16 at 22:00 Hydralazine HCl 10 mg 10 mg Q6H PRN IV SBP>160; Start 07/07/16 at 19:30 Vancomycin HCl/ Sodium Chloride (Vancocin/NS) 250 ml @ 83.333 mls/ hr Q24H IVPB ; Start 07/08/16 at 09:00 BOBY MACHUCA NP Jul 08, 2016 07:42
[2016-07-08] MEDS ORDERED: VANCOMYCIN 1.5 GM in SOD CHLORIDE 0.9% 250 ML IVPB SCH (09:00)
[2016-07-08] MEDS: METOPROLOL 100 MG TAB PO SCH ×2 (09:00→20:40)
[2016-07-08 10:49] LABS: ADD UMIC YES; URINE BILIRUBIN (Dip) NEGATIVE (NEGATIVE); URINE BLOOD (Dip) 1+ (NEGATIVE); URINE COLOR LT. YELLOW (YELLOW); URINE GLUCOSE (Dip) NEGATIVE (NEGATIVE); URINE KETONES (Dip) NEGATIVE (NEGATIVE); URINE LEUKOCYTE ESTERASE (Dip) NEGATIVE (NEGATIVE); URINE NITRITE (Dip) NEGATIVE (NEGATIVE); URINE TOTAL PROTEIN (Dip) NEGATIVE (NEGATIVE); URINE UROBILINOGEN (Dip) 0.2 E.U./dL (0.1-1.0)
[2016-07-08 11:05] LABS: SQUAMOUS EPITHELIAL CELL,UR FEW; URINE RBCS 0-2 /HPF (0)
[2016-07-08] MEDS: LOSARTAN 25 MG TAB PO SCH (11:10)
[2016-07-08] MEDS: FAMOTIDINE 20 MG TAB PO SCH ×2 (11:10→20:40)
[2016-07-08] MEDS: AMLODIPINE 10 MG TAB PO SCH (11:11)
[2016-07-08] MEDS: ENOXAPARIN 40 MG/0.4 ML SYG SC SCH (11:19)
[2016-07-08] MEDS: HYDROCHLOROTHIAZIDE 25 MG TAB PO SCH (11:21)
[2016-07-08 11:39] LABS: BARBITURATES Negative (NEGATIVE); BENZODIAZEPINES Negative (NEGATIVE); CANNABINOIDS Negative (NEGATIVE); COCAINE Negative (NEGATIVE); OPIATES Positive (NEGATIVE)
--- NOTE | 2016-07-08 12:10 | CONS ---
DATE OF ADMISSION: 07/07/2016 DATE OF CONSULTATION: 07/08/2016 INFECTIOUS DISEASE CONSULTATION REASON FOR CONSULTATION: Antibiotic management. HISTORY OF PRESENT ILLNESS: Nupur Mancilla is a 65-year-old white female with numerous problems includ ing essential hypertension, dyslipidemia, and sciatica. She comes in with right foot cellulitis whi ch failed outpatient treatment. The patient was seen in the emergency room on July 02, wa s discharged on home antibiotics, was not getting better. She had a wound involving her right third and fourth toe that started developing a blister. She was seen in the emergency room, started on I V vancomycin and Zosyn. A right foot x-ray showed soft tissue swelling of the fourth and fifth digi ts with nondisplaced closed fracture of the fifth distal phalangeal tuft without intraarticular exte nsion. PAST PROBLEMS: Include: 1. Essential hypertension. 2. Dyslipidemia. 3. Status post hysterectomy. LABORATORY DATA: On admission, her white count was 13.3, H and H 15.1 and 44.1, platelet count 267, 000 with BUN and creatinine of 12/0.82. X-ray showed soft tissue swelling of the fourth and fifth d igits, nondisplaced closed fracture of the distal phalangeal tuft without intraarticular extension. PAST MEDICAL HISTORY: Operations as outlined. FAMILY HISTORY: Noncontributory. SOCIAL HISTORY: She does not smoke, drink, or abuse drugs. ALLERGIES: NONE TO PENICILLIN, SULFA, OR FOODS. MEDICATIONS: Per chart. REVIEW OF SYSTEMS: Noncontributory. PHYSICAL EXAMINATION: GENERAL: The patient is a well-developed, well-nourished female who is alert, responsive, in no acu te distress. VITAL SIGNS: Stable. She is afebrile. SKIN: Without generalized rash. HEENT: Within normal limits. NECK: Supple. LYMPH NODES: None palpable. CHEST: Decreased breath sounds at the bases. HEART: Without murmur or gallop. ABDOMEN: Soft, nontender, without organosplenomegaly or masses. EXTREMITIES: Without cyanosis, clubbing, or edema. Right foot erythema between the third and fourt h toe with radiation of erythema on the dorsal surface with tenderness to touch in that area. RECTAL AND GENITAL: Deferred. NEUROLOGIC: No focal neurological abnormality. IMPRESSION AND PLAN: The patient has right foot cellulitis. She was seen and evaluated by podiatry . We are going to continue her on antibiotic therapy. She is currently on vancomycin and Zosyn. I will dictate my findings to the hospitalist and to Dr. Ratliff. Dictated By: GUSTAVO PUGH MD, JD/ASAEL Conf#: [id number] DID#: [id number]
[2016-07-08 19:00] VITALS: BP 128/61; RESP 18
--- NOTE | 2016-07-08 20:19 | CONS ---
DATE OF ADMISSION: 07/07/2016 DATE OF CONSULTATION: 07/08/2016 SUBJECTIVE FINDINGS: The patient being followed for her right foot cellulitis, ulceration between t he third and fourth toes. Discussed surgical debridement. The patient had arterial noninvasives, w hich revealed monophasic flow. The patient has history of smoking and currently with unresolved sandra lulitis and persistent necrosis of skin with dusky appearance to the third and fourth toes on the ri ght foot. PHYSICAL EXAMINATION: VITAL SIGNS: Temperature 98.5, pulse is 76, respiratory rate 18, blood pressure 128/61, pulse ox is 98%. GENERAL: The patient alert and oriented, no acute distress. LUNGS: Regular respiration. HEAD: Normocephalic, atraumatic. EXTREMITIES: The patient has ingrowing nail to the right medial hallux. There is ulceration with a dusky appearing third and fourth toes. Malodor present. Cellulitis of the dorsal foot and ankle. Persistent lymphangitis. There is pain with palpation of the toes. The patient has 1+ DP, 2+ PT, 2+ popliteal. IMAGING: Chest x-ray, normal. Extremity arterial study: Heavy calcification, monophasic waveforms . MICROBIOLOGY: Blood cultures are no growth. LABORATORIES: WBC 7.1, hemoglobin 13.3, hematocrit 39, platelets 227. Sed rate is 51. ASSESSMENT: 1. Peripheral arterial disease, history of tobacco use. 2. Cellulitis, left foot and ankle. 3. Gangrene, right third and fourth toes. PLAN: Continue antibiotics. Reviewed noninvasive arterial studies. Dr. Fields consulted and ayanna sterling may require a CT versus angiography. The patient at risk for amputation. Would hold off on d ebridement until further diagnostic testing and intervention performed. Discussed with the patient at risk for loss of toes. The patient currently on vancomycin and Zosyn. Continue to monitor clini mary response. Dictated By: CARLOS CRAWFORD DPM RB/ASAEL Conf#: [id number] DID#: [id number] CC: MAYA STOUT MD;*EndCC*
[2016-07-08] MEDS: ATORVASTATIN 20 MG TAB PO SCH (20:40)
[2016-07-09] MEDS: morphine 2 MG INJ IV PRN ×5 (01:26→20:20)
[2016-07-09] MEDS: PIPER-TAZO 3.375 GM IV (PMX) 100 ML IVPB SCH ×3 (05:49→22:54)
[2016-07-09 06:34] LABS: BASOPHIL # 0.1 10^3/ul (0.0-0.1); BASOPHILS % 0.8 % (0.0-2.0); EOSINOPHILS # 0.1 10^3/ul (0.0-0.5); EOSINOPHILS % 0.7 % (0.0-7.0); HEMATOCRIT 38.9 % (37.0-47.0); HEMOGLOBIN 13.5 g/dl (12.0-16.0); LYMPHOCYTES # 1.7 10^3/ul (0.8-2.9); LYMPHOCYTES % 23.6 % (15.0-51.0); MEAN CORPUSCULAR HEMOGLOBIN 33.8 pg (29.0-33.0); MEAN CORPUSCULAR HGB CONC 34.8 g/dl (32.0-37.0); MEAN CORPUSCULAR VOLUME 97.2 fl (82.0-101.0); MEAN PLATELET VOLUME 9.7 fl (7.4-10.4); MONOCYTE # 0.4 10^3/ul (0.3-0.9); NEUTROPHIL # 4.9 10^3/ul (1.6-7.5); NEUTROPHILS % 68.9 % (39.0-77.0); PLATELET COUNT 212 10^3/UL (140-440); RED CELL DISTRIBUTION WIDTH 12.9 % (11.5-14.5); UNCORRECTED WBC 7.2 10^3/ul (4.8-10.8); WHITE BLOOD COUNT 7.2 10^3/ul (4.8-10.8)
[2016-07-09 06:47] LABS: POTASSIUM 3.7 mmol/L (3.5-5.1)
[2016-07-09 06:49] LABS: CONDITION 1
[2016-07-09 06:50] LABS: CREATININE 0.65 mg/dl (0.44-1.00)
[2016-07-09 06:51] LABS: CALCIUM 9.3 mg/dl (8.4-10.2)
[2016-07-09 06:52] LABS: MAGNESIUM 1.9 mg/dl (1.7-2.5)
[2016-07-09 07:38] VITALS: BP 137/67; RESP 18
[2016-07-09] MEDS: AMLODIPINE 10 MG TAB PO SCH (08:54)
[2016-07-09] MEDS: HYDROCHLOROTHIAZIDE 25 MG TAB PO SCH (08:55)
[2016-07-09] MEDS: METOPROLOL 100 MG TAB PO SCH ×2 (08:55→20:20)
[2016-07-09] MEDS: LOSARTAN 25 MG TAB PO SCH (08:55)
[2016-07-09] MEDS: FAMOTIDINE 20 MG TAB PO SCH ×2 (08:55→20:19)
[2016-07-09] MEDS: ENOXAPARIN 40 MG/0.4 ML SYG SC SCH (09:00)
--- NOTE | 2016-07-09 11:15 | PN ---
Date/Time of Note Date/Time of Note DATE: 07/09/16 TIME: 11:10 Assessment/Plan VTE Prophylaxis VTE Prophylaxis Intervention: LMWH Lines/Catheters [facility] Saline Lock Assessment/Plan Chief Complaint/Hosp Course 1. Right foot cellulitis. The patient was seen and evaluated by Podiatry. Podiatry is planning for debridement of ulceration and avulsion of the right hallux ingrown nail. The patient will be provided with adequate pain control. The patient will be maintained on appropriate antibiotics. 2. Essential hypertension. Continue routine antihypertensives. Continue p.r.n. antihypertensives for any systolic blood pressure readings greater than 160 mmHg. 3. Dyslipidemia. Continue statins. 4. Peripheral vascular disease. Arterial Doppler showing elevated peak systolic velocities within the left lower extremity, from the external iliac artery through the mid superficial femoral artery, indicative of multifocal stenoses. The patient was evaluated by vascular surgeon. Pending further workup. Will start the patient on antiplatelet therapy. 5. Fluids, electrolytes, and nutrition. Low cholesterol diet. 6. DVT prophylaxis. Subcutaneous Lovenox. 7. Gastrointestinal prophylaxis. Histamine 2 receptor blockers. 8. Plan. Continue pain control. Continue antibiotics. Await further recommendations from podiatry and vascular surgery. Case discussed with Dr. Dietz. Problems: Subjective 24 Hr Interval Summary Free Text/Dictation Still having right foot pain. On analgesics. Exam/Review of Systems Vital Signs Vitals Vital Signs Date Time Temp Pulse Resp B/P Pulse Ox O2 Delivery O2 Flow Rate FiO2 07/09/16 07:38 98.1 62 18 137/67 93 07/07/16 20:00 Room Air Intake and Output 07/08/16 07/08/16 07/09/16 15:00 23:00 07:00 Intake Total 450 ml 100 ml Balance 450 ml 100 ml Exam GENERAL: This is a well-built, well-nourished female lying in bed in no apparent distress. HEENT: Head normocephalic and atraumatic. Eyes: Anicteric sclerae. Conjunctivae clear. ENT: Nasal septum is midline. Oral mucosa is moist. NECK: Supple. No JVD noticed. RESPIRATORY: Bilaterally clear to auscultation. No adventitious breath sounds. No use of accessory muscles of respiration. CARDIAC: Regular rate and rhythm. No murmurs heard. ABDOMEN: Soft, nontender, nondistended. Bowel sounds positive in all 4 quadrants. GENITOURINARY: Deferred. EXTREMITIES: No cyanosis, no clubbing, no edema. Peripheral pulses palpable. Bilateral pedal pulses diminished. Right foot erythema between the 3rd and 4th digits with radiation of erythema on the dorsal surface with tenderness to touch in the area. NEUROLOGIC: The patient is awake, alert and oriented. Cranial nerves are grossly intact. Results Result Diagram: 07/09/16 0600 07/09/16 0600 Results 24 hrs Laboratory Tests Test 07/09/16 06:00 Anion Gap 15 Basophils # 0.1 Basophils % 0.8 Blood Urea Nitrogen 10 Calcium Level 9.3 Carbon Dioxide Level 26 Chloride Level 105 Creatinine 0.65 Eosinophils # 0.1 Eosinophils % 0.7 Glucose Level 98 Hematocrit 38.9 Hemoglobin 13.5 Lymphocytes # 1.7 Lymphocytes % 23.6 Magnesium Level 1.9 Mean Corpuscular Hemoglobin 33.8 H Mean Corpuscular Hemoglobin Concent 34.8 Mean Corpuscular Volume 97.2 Mean Platelet Volume 9.7 Monocytes # 0.4 Monocytes % 6.0 Neutrophils # 4.9 Neutrophils % 68.9 Nucleated Red Blood Cells # 0.0 Nucleated Red Blood Cells % 0.0 Phosphorus Level 3.0 Platelet Count 212 Potassium Level 3.7 Random Vancomycin Level 8.9 Red Blood Count 4.00 L Red Cell Distribution Width 12.9 Sodium Level 142 White Blood Count 7.2 Medications Medications Current Medications Ondansetron HCl (Zofran Inj) 4 mg Q6H PRN IV NAUSEA AND/OR VOMITING; Start 07/07 at 19:00 Acetaminophen (Tylenol Tab) 650 mg Q6H PRN PO PAIN LEVEL 1-3 OR FEVER; Start at 19:00 Acetaminophen/ Hydrocodone Bitart ([place] (5/325)) 1 tab Q6H PRN PO MODERATE PAIN LEVEL 4-6; Start 07/07/16 at 19:00 Morphine Sulfate (morphine) 2 mg Q4H PRN IV SEVERE PAIN LEVEL 7-10 Last administered on 07/09/16t 10:09; Admin Dose 2 MG; Start 07/07/16 at 19:00 Magnesium Hydroxide (Milk Of Mag) 30 ml DAILY PRN PO CONSTIPATION; Start at 19:00 Bisacodyl (Dulcolax) 5 mg DAILY PRN PO CONSTIPATION; Start 07/07/16 at 19:00 Zolpidem Tartrate (Ambien) 5 mg QHS PRN PO SLEEP; Start 07/07/16 at 19:00 Famotidine (Pepcid) 20 mg Q12 PO Last administered on 07/09/16 08:55; Admin Dose 20 MG; Start 07/07/16 at 21:00 Enoxaparin Sodium (Lovenox) 40 mg DAILY SC Last administered on 07/08/16 11:19 ; Admin Dose 40 MG; Start 07/08/16 at 09:00 Amlodipine Besylate (Norvasc) 10 mg DAILY PO Last administered on 07/09/16 08: 54; Admin Dose 10 MG; Start 07/08/16 at 09:00 Atorvastatin Calcium (Lipitor) 20 mg QHS PO Last administered on 07/08/16 20: 40; Admin Dose 20 MG; Start 07/07/16 at 21:00 Hydrochlorothiazide (Hydrochlorothiazide) 25 mg DAILY PO Last administered on 08:55; Admin Dose 25 MG; Start 07/08/16 at 09:00 Losartan Potassium (Cozaar) 25 mg DAILY PO Last administered on 07/09/16 08:55 ; Admin Dose 25 MG; Start 07/08/16 at 09:00 Metoprolol Tartrate 100 mg 100 mg BID PO Last administered on 07/09/16 08:55; Admin Dose 100 MG; Start 07/07/16 at 21:00 Piperacillin Sod/ Tazobactam Sod (Zosyn 3.375gm/ 100 ml (Pmx)) 100 ml @ 200 mls /hr Q8 IVPB Last administered on 07/09/16 05:49; Admin Dose 200 MLS/HR; Start 07/07/16 at 22:00 Hydralazine HCl 10 mg 10 mg Q6H PRN IV SBP>160; Start 07/07/16 at 19:30 Vancomycin HCl (Vancocin) 250 ml @ 125 mls/hr Q12H IVPB ; Start 07/09/16 at 11: 00 BOBY MACHUCA NP Jul 09, 2016 11:15
[2016-07-09] MEDS ORDERED: IODIXANOL LOCM 100 ML BTL ONE (12:04)
[2016-07-09] MEDS ORDERED: SOD CHLORIDE 0.9% 100 ML ONE (12:04)
[2016-07-09] MEDS ORDERED: IODIXANOL LOCM 50 ML BTL ONE (12:05)
[2016-07-09] MEDS: VANCOMYCIN 1 GM in NS 250 ML IVPB SCH ×2 (12:53→23:30)
--- NOTE | 2016-07-09 13:51 | CONS ---
DATE OF ADMISSION: 07/07/2016 DATE OF CONSULTATION: REASON FOR CONSULTATION: Peripheral vascular disease. Thank you, Dr. Ratliff, for asking me to see this patient. HISTORY OF PRESENT ILLNESS: A 65-year-old female, admitted with essential hypertension, dyslipidemi a, sciatic through the emergency room with gangrene of the right toes. Patient is currently being t reated with antibiotics and local wound care, was found to have poor pulses. Ultrasound was done wh ich showed heavy calcification bilateral lower extremity arterial system, monophasic waveforms in bi lateral lower extremity arteries, possibly secondary to aortoiliac disease. The patient also has el evated systolic systemic velocities in the mid superficial femoral artery indicative of multiple chema noses. PAST MEDICAL HISTORY: Significant for no diabetes foot but patient does smoke. ALLERGIES: NONE. SOCIAL HISTORY: Positive for smoking. MEDICATIONS: List reviewed which is: 1. Amlodipine. 2. Atorvastatin. 3. Cozaar 4. Lopressor. 5. Hydrochlorothiazide. 6. Tylenol. PHYSICAL EXAMINATION: GENERAL: The patient is awake, alert, responds appropriately. VITAL SIGNS: Blood pressure is 137/67, pulse 62, respirations 18, saturations 93% on room air. HEENT: Normocephalic, atraumatic. PERRLA. NECK: Supple. No JVD, no carotid bruits. CARDIOVASCULAR: Regular rate and rhythm. Normal S1, S2. LUNGS: Clear. ABDOMEN: Soft. EXTREMITIES: Warm down to the knee. They become cool from the knee down. There are palpable femor al pulses. Popliteal and pedal pulses are not palpable. LABORATORY VALUES: Significant for a white count 7.2, hemoglobin 13.5, platelet count 212 and a cre atinine level of 0.65. IMPRESSION: Peripheral vascular disease with gangrene of the right distal foot. RECOMMENDATIONS: We will proceed with a CT angiogram to evaluate peripheral arterial disease. Disc ussed with the patient and the family. All questions answered. Dictated By: ORAL WHITAKER/ASAEL Conf#: [id number] DID#: [id number]
[2016-07-09 19:37] VITALS: BP 125/61; RESP 16
[2016-07-09] MEDS: ATORVASTATIN 20 MG TAB PO SCH (20:20)
[2016-07-10] MEDS: PIPER-TAZO 3.375 GM IV (PMX) 100 ML IVPB SCH ×2 (05:32→14:35)
[2016-07-10] MEDS: morphine 2 MG INJ IV PRN ×4 (05:43→21:31)
[2016-07-10 05:50] LABS: BASOPHILS % 0.4 % (0.0-2.0); EOSINOPHILS # 0.1 10^3/ul (0.0-0.5); EOSINOPHILS % 1.2 % (0.0-7.0); HEMATOCRIT 40.6 % (37.0-47.0); LYMPHOCYTES # 1.9 10^3/ul (0.8-2.9); LYMPHOCYTES % 26.2 % (15.0-51.0); MEAN CORPUSCULAR HEMOGLOBIN 33.5 pg (29.0-33.0); MEAN CORPUSCULAR HGB CONC 34.4 g/dl (32.0-37.0); MEAN CORPUSCULAR VOLUME 97.3 fl (82.0-101.0); MEAN PLATELET VOLUME 9.8 fl (7.4-10.4); MONOCYTE # 0.4 10^3/ul (0.3-0.9); MONOCYTES % 6.2 % (0.0-11.0); NEUTROPHIL # 4.7 10^3/ul (1.6-7.5); PLATELET COUNT 230 10^3/UL (140-440); RED BLOOD COUNT 4.17 10^6/ul (4.20-5.40); RED CELL DISTRIBUTION WIDTH 12.5 % (11.5-14.5); UNCORRECTED WBC 7.1 10^3/ul (4.8-10.8); WHITE BLOOD COUNT 7.1 10^3/ul (4.8-10.8)
[2016-07-10 06:03] LABS: CONDITION 1
[2016-07-10 06:19] LABS: POTASSIUM 3.1 mmol/L (3.5-5.1)
[2016-07-10 06:21] LABS: CREATININE 0.58 mg/dl (0.44-1.00)
[2016-07-10 06:22] LABS: CALCIUM 9.6 mg/dl (8.4-10.2)
[2016-07-10 06:48] LABS: PHOSPHORUS 4.3 mg/dl (2.5-4.9)
[2016-07-10 06:49] LABS: MAGNESIUM 1.7 mg/dl (1.7-2.5)
[2016-07-10 07:34] VITALS: BP 115/57; RESP 17
[2016-07-10] MEDS ORDERED: POTASSIUM CHLORIDE (SR) 20 MEQ TAB PO STA (08:19)
--- NOTE | 2016-07-10 08:21 | PN ---
Date/Time of Note Date/Time of Note DATE: 07/10/16 TIME: 08:20 Assessment/Plan VTE Prophylaxis VTE Prophylaxis Intervention: LMWH Lines/Catheters IV Catheter Type (from [facility]): Saline Lock Assessment/Plan Chief Complaint/Hosp Course 1. Right foot cellulitis. The patient was seen and evaluated by Podiatry. Podiatry is planning for debridement of ulceration and avulsion of the right hallux ingrown nail. The patient will be provided with adequate pain control. The patient will be maintained on appropriate antibiotics. Wound culture positive for staph aureus. 2. Essential hypertension. Continue routine antihypertensives. Continue p.r.n. antihypertensives for any systolic blood pressure readings greater than 160 mmHg. 3. Dyslipidemia. Continue statins. 4. Peripheral vascular disease. Arterial Doppler showing elevated peak systolic velocities within the left lower extremity, from the external iliac artery through the mid superficial femoral artery, indicative of multifocal stenoses. The patient was evaluated by vascular surgeon. Pending further workup. Continue antiplatelet therapy. 5. Fluids, electrolytes, and nutrition. Low cholesterol diet. 6. DVT prophylaxis. Subcutaneous Lovenox. 7. Gastrointestinal prophylaxis. Histamine 2 receptor blockers. 8. Plan. Replete potassium. Continue pain control. Continue antibiotics. Await further recommendations from podiatry and vascular surgery. Case discussed with Dr. Dietz. Problems: Subjective 24 Hr Interval Summary Free Text/Dictation The patient remains afebrile. Exam/Review of Systems Vital Signs Vitals Vital Signs Date Time Temp Pulse Resp B/P Pulse Ox O2 Delivery O2 Flow Rate FiO2 07/10/16 07:34 98.3 56 17 115/57 93 07/07/16 20:00 Room Air Intake and Output 07/09/16 07/09/16 07/10/16 15:00 23:00 07:00 Intake Total 710 ml 870 ml Balance 710 ml 870 ml Exam GENERAL: This is a well-built, well-nourished female lying in bed in no apparent distress. HEENT: Head normocephalic and atraumatic. Eyes: Anicteric sclerae. Conjunctivae clear. ENT: Nasal septum is midline. Oral mucosa is moist. NECK: Supple. No JVD noticed. RESPIRATORY: Bilaterally clear to auscultation. No adventitious breath sounds. No use of accessory muscles of respiration. CARDIAC: Regular rate and rhythm. No murmurs heard. ABDOMEN: Soft, nontender, nondistended. Bowel sounds positive in all 4 quadrants. GENITOURINARY: Deferred. EXTREMITIES: No cyanosis, no clubbing, no edema. Peripheral pulses palpable. Bilateral pedal pulses diminished. Right foot erythema between the 3rd and 4th digits with radiation of erythema on the dorsal surface with tenderness to touch in the area. NEUROLOGIC: The patient is awake, alert and oriented. Cranial nerves are grossly intact. Results Result Diagram: 07/10/1651907/10/16519 Results 24 hrs Laboratory Tests Test 07/10/16 05:20 Anion Gap 14 Basophils # 0.0 Basophils % 0.4 Blood Urea Nitrogen 8 Calcium Level 9.6 Carbon Dioxide Level 27 Chloride Level 103 Creatinine 0.58 Eosinophils # 0.1 Eosinophils % 1.2 Glucose Level 101 Hematocrit 40.6 Hemoglobin 14.0 Lymphocytes # 1.9 Lymphocytes % 26.2 Magnesium Level 1.7 Mean Corpuscular Hemoglobin 33.5 H Mean Corpuscular Hemoglobin Concent 34.4 Mean Corpuscular Volume 97.3 Mean Platelet Volume 9.8 Monocytes # 0.4 Monocytes % 6.2 Neutrophils # 4.7 Neutrophils % 66.0 Nucleated Red Blood Cells # 0.0 Nucleated Red Blood Cells % 0.0 Phosphorus Level 4.3 Platelet Count 230 Potassium Level 3.1 L Red Blood Count 4.17 L Red Cell Distribution Width 12.5 Sodium Level 141 White Blood Count 7.1 Medications Medications Current Medications Ondansetron HCl (Zofran Inj) 4 mg Q6H PRN IV NAUSEA AND/OR VOMITING; Start 07/07 at 19:00 Acetaminophen (Tylenol Tab) 650 mg Q6H PRN PO PAIN LEVEL 1-3 OR FEVER; Start at 19:00 Acetaminophen/ Hydrocodone Bitart ([place] (5/325)) 1 tab Q6H PRN PO MODERATE PAIN LEVEL 4-6; Start 07/07/16 at 19:00 Morphine Sulfate (morphine) 2 mg Q4H PRN IV SEVERE PAIN LEVEL 7-10 Last administered on 07/10/16t 05:43; Admin Dose 2 MG; Start 07/07/16 at 19:00 Magnesium Hydroxide (Milk Of Mag) 30 ml DAILY PRN PO CONSTIPATION; Start at 19:00 Bisacodyl (Dulcolax) 5 mg DAILY PRN PO CONSTIPATION; Start 07/07/16 at 19:00 Zolpidem Tartrate (Ambien) 5 mg QHS PRN PO SLEEP; Start 07/07/16 at 19:00 Famotidine (Pepcid) 20 mg Q12 PO Last administered on 07/09/16 20:19; Admin Dose 20 MG; Start 07/07/16 at 21:00 Enoxaparin Sodium (Lovenox) 40 mg DAILY SC Last administered on 07/08/16 11:19 ; Admin Dose 40 MG; Start 07/08/16 at 09:00 Amlodipine Besylate (Norvasc) 10 mg DAILY PO Last administered on 07/09/16 08: 54; Admin Dose 10 MG; Start 07/08/16 at 09:00 Atorvastatin Calcium (Lipitor) 20 mg QHS PO Last administered on 07/09/16 20: 20; Admin Dose 20 MG; Start 07/07/16 at 21:00 Hydrochlorothiazide (Hydrochlorothiazide) 25 mg DAILY PO Last administered on 08:55; Admin Dose 25 MG; Start 07/08/16 at 09:00 Losartan Potassium (Cozaar) 25 mg DAILY PO Last administered on 07/09/16 08:55 ; Admin Dose 25 MG; Start 07/08/16 at 09:00 Metoprolol Tartrate 100 mg 100 mg BID PO Last administered on 07/09/16 20:20; Admin Dose 100 MG; Start 07/07/16 at 21:00 Piperacillin Sod/ Tazobactam Sod (Zosyn 3.375gm/ 100 ml (Pmx)) 100 ml @ 200 mls /hr Q8 IVPB Last administered on 07/10/16 05:32; Admin Dose 200 MLS/HR; Start 07/07/16 at 22:00 Hydralazine HCl 10 mg 10 mg Q6H PRN IV SBP>160; Start 07/07/16 at 19:30 Vancomycin HCl (Vancocin) 250 ml @ 125 mls/hr Q12H IVPB Last administered on 23:30; Admin Dose 125 MLS/HR; Start 07/09/16 at 11:00 Aspirin (Halfprin) 81 mg DAILY PO ; Start 07/10/16 at 09:00 BOBY MACHUCA NP Jul 10, 2016 08:21
[2016-07-10] MEDS: HYDROCHLOROTHIAZIDE 25 MG TAB PO SCH (09:26)
[2016-07-10] MEDS: AMLODIPINE 10 MG TAB PO SCH (09:26)
[2016-07-10] MEDS: ASPIRIN (EC) 81 MG TAB PO SCH (09:27)
[2016-07-10] MEDS: LOSARTAN 25 MG TAB PO SCH (09:27)
[2016-07-10] MEDS: FAMOTIDINE 20 MG TAB PO SCH ×2 (09:27→21:32)
[2016-07-10] MEDS: METOPROLOL 100 MG TAB PO SCH ×2 (09:28→21:32)
[2016-07-10] MEDS: ENOXAPARIN 40 MG/0.4 ML SYG SC SCH (09:31)
[2016-07-10] MEDS: VANCOMYCIN 1 GM in NS 250 ML IVPB SCH ×2 (10:44→11:00)
[2016-07-10] MEDS ORDERED: VANCOMYCIN 500MG/NS (PMX) 100 ML IVPB SCH (12:00)
--- NOTE | 2016-07-10 17:16 | PN ---
DATE: 07/10/2016 SUBJECTIVE: No acute changes. The patient is alert, lying comfortably in bed. No fevers. WBC 7.1, no shift, no bands. BUN 8, creatinine 0.58. MICROBIOLOGY: Right foot wound drainage grew Staphylococcus aureus. DIAGNOSTICS: Extremity arterial study revealed bilateral arteries with inflow disease due to upstre am stenosis. ANTIMICROBIALS: The patient is on vancomycin and Zosyn. PHYSICAL EXAMINATION: GENERAL: Fragile, elderly woman who is alert, in no distress. HEENT: Head atraumatic, normocephalic. Sclerae anicteric. Buccal mucosa dry. NECK: Supple, trachea midline. CHEST: Rise symmetrical. Breath sounds clear. HEART: S1, S2. ABDOMEN: Soft. Bowel tones present. EXTREMITIES: With right foot erythema, necrotic toe and also the toe is cool to touch. ASSESSMENT: 1. Right foot cellulitis with necrotic toe. 2. Severe peripheral arterial disease. 3. Dyslipidemia. 4. Hypertension. PLAN: We are going to change antibiotics to Rocephin as the patient's wound culture grew oxacillin- sensitive Staphylococcus aureus. Follow podiatry and vascular recommendations. Pending CT angiogra m. Dictated By: PENNY BORREGO [employer] for GUSTAVO ARAGON/ASAEL Conf#: [id number] DID#: [id number]
[2016-07-10] MEDS: CEFTRIAXONE 1 GM/50 ML (PMX) 50 ML IVPB SCH (18:17)
--- NOTE | 2016-07-10 18:42 | PN ---
Date/Time of Note Date/Time of Note DATE: 07/10/16 TIME: 18:42 Assessment/Plan Lines/Catheters IV Catheter Type (from [facility]): Saline Lock Assessment/Plan Chief Complaint/Hosp Course IMPRESSION: Peripheral vascular disease with gangrene of the right distal foot. RECOMMENDATIONS: We will proceed with a CT angiogram to evaluate peripheral arterial disease. Discussed with the patient and the family. All questions answered. Problems: Subjective 24 Hr Interval Summary Constitutional: improved Pain Control: mild Exam/Review of Systems Vital Signs Vitals Vital Signs Date Time Temp Pulse Resp B/P Pulse Ox O2 Delivery O2 Flow Rate FiO2 07/10/16 07:34 98.3 56 17 115/57 93 07/07/16 20:00 Room Air Intake and Output 07/09/16 07/09/16 07/10/16 15:00 23:00 07:00 Intake Total 710 ml 870 ml Balance 710 ml 870 ml Exam Neck: non-tender, supple Respiratory: clear to auscultation, normal air movement Cardiovascular: nl pulses, regular rate and rhythm Gastrointestinal: nl liver, spleen, non-tender, soft Results Result Diagram: 07/10/16 0520 07/10/16 0520 ORAL VILLANUEVA MD Jul 10, 2016 18:42
[2016-07-10 19:32] VITALS: BP 117/59; RESP 18
[2016-07-10] MEDS ORDERED: IOHEXOL 350MG/ML 50 ML BTL ONE (20:37)
[2016-07-10] MEDS ORDERED: IOHEXOL 100 ML ONE (20:37)
[2016-07-10] MEDS ORDERED: SOD CHLORIDE 0.9% 100 ML ONE (20:37)
[2016-07-10] MEDS: ATORVASTATIN 20 MG TAB PO SCH (21:32)
--- NOTE | 2016-07-11 06:53 | CONS ---
DATE OF ADMISSION: 07/07/2016 DATE OF CONSULTATION: 07/09/2016 SUBJECTIVE FINDINGS: The patient is being followed for cellulitis and gangrene of the toes on the r ight foot. Given ischemic changes, Dr. Fields was consulted. CT angiogram ordered to evaluate t he extent of peripheral arterial disease. The patient without any acute changes relates persistent pain to the toes on the right foot. PHYSICAL EXAMINATION: VITAL SIGNS: Temperature 98.5, pulse 67, respiratory rate 16, blood pressure 125/61, pulse oximetry is 95%. GENERAL: The patient is alert and oriented, regular respirations. NECK: Trachea is midline. EXTREMITIES: The patient with cellulitis dorsal aspect of the right foot with ischemic changes to t he toes, pain with palpation. LABORATORIES: WBC 7.2, hemoglobin 13.5, hematocrit 38.9, and platelets 212. Sed rate is 15. Stool culture coliform feces with a negative C. diff. Wound culture positive for Staph aureus. CT scan pending. Extremity arterial study, heavy calcification bilateral lower extremity arteries, monophas ic waveforms throughout the bilateral lower extremity arteries, elevated peak systolic velocities. ASSESSMENT: 1. Cellulitis. 2. Lymphangitis. 3. Gangrene of the toes, right foot. 4. Ingrowing nail, right hallux. PLAN: The patient is seen and evaluated and is pending further diagnostic imaging with CT angiogram . Appreciate consultation from Dr. Fields. The patient currently is on vancomycin and Zosyn wit h limited improvement. The patient is at high risk for amputation of toes. Further recommendations pending. Continue daily antiseptic precautions and antimicrobial ointment. We will continue to fo llow. Dictated By: CARLOS HAQUE/ASAEL Conf#: [id number] DID#: [id number]
[2016-07-11 07:47] VITALS: BP 137/73; RESP 20
[2016-07-11] MEDS: morphine 2 MG INJ IV PRN ×4 (07:56→23:07)
--- NOTE | 2016-07-11 08:39 | PN ---
Date/Time of Note Date/Time of Note DATE: 07/11/16 TIME: 08:38 Assessment/Plan VTE Prophylaxis VTE Prophylaxis Intervention: LMWH Lines/Catheters IV [facility] (from [facility] Saline Lock Urinary Cath still in place: No Assessment/Plan Chief Complaint/Hosp Course 1. Right foot cellulitis. The patient was seen and evaluated by Podiatry. The patient will be provided with adequate pain control. The patient will be maintained on appropriate antibiotics. Wound culture positive for staph aureus. 2. Essential hypertension. Continue routine antihypertensives. Continue p.r.n. antihypertensives for any systolic blood pressure readings greater than 160 mmHg. 3. Dyslipidemia. Continue statins. 4. Peripheral vascular disease. Arterial Doppler showing elevated peak systolic velocities within the left lower extremity, from the external iliac artery through the mid superficial femoral artery, indicative of multifocal stenoses. The patient was evaluated by vascular surgeon. Pending further workup. Continue antiplatelet therapy. 5. Fluids, electrolytes, and nutrition. Low cholesterol diet. 6. DVT prophylaxis. Subcutaneous Lovenox. 7. Gastrointestinal prophylaxis. Histamine 2 receptor blockers. 8. Plan. Continue pain control. Continue antibiotics. Await further recommendations from podiatry and vascular surgery. Case discussed with Dr. Dietz. Problems: Subjective 24 Hr Interval Summary Free Text/Dictation Right foot pain well controlled with analgesics. Exam/Review of Systems Vital Signs Vitals Vital Signs Date Time Temp Pulse Resp B/P Pulse Ox O2 Delivery O2 Flow Rate FiO2 07/11/16 07:47 97.8 67 20 137/73 94 07/07/16 20:00 Room Air Intake and Output 07/10/16 07/10/16 07/11/16 15:00 23:00 07:00 Intake Total 100 ml 870 ml 240 ml Output Total 600 ml Balance 100 ml 870 ml -360 ml Exam GENERAL: This is a well-built, well-nourished female lying in bed in no apparent distress. HEENT: Head normocephalic and atraumatic. Eyes: Anicteric sclerae. Conjunctivae clear. ENT: Nasal septum is midline. Oral mucosa is moist. NECK: Supple. No JVD noticed. RESPIRATORY: Bilaterally clear to auscultation. No adventitious breath sounds. No use of accessory muscles of respiration. CARDIAC: Regular rate and rhythm. No murmurs heard. ABDOMEN: Soft, nontender, nondistended. Bowel sounds positive in all 4 quadrants. GENITOURINARY: Deferred. EXTREMITIES: No cyanosis, no clubbing, no edema. Peripheral pulses palpable. Bilateral pedal pulses diminished. Right foot erythema between the 3rd and 4th digits with radiation of erythema on the dorsal surface with tenderness to touch in the area. NEUROLOGIC: The patient is awake, alert and oriented. Cranial nerves are grossly intact. Results Result Diagram: 07/10/1651907/10/16519 Medications Medications Current Medications Ondansetron HCl (Zofran Inj) 4 mg Q6H PRN IV NAUSEA AND/OR VOMITING; Start 07/07 at 19:00 Acetaminophen (Tylenol Tab) 650 mg Q6H PRN PO PAIN LEVEL 1-3 OR FEVER; Start at 19:00 Acetaminophen/ Hydrocodone Bitart ([place] (5/325)) 1 tab Q6H PRN PO MODERATE PAIN LEVEL 4-6; Start 07/07/16 at 19:00 Morphine Sulfate (morphine) 2 mg Q4H PRN IV SEVERE PAIN LEVEL 7-10 Last administered on 07/11/16 07:56; Admin Dose 2 MG; Start 07/07/16 at 19:00 Magnesium Hydroxide (Milk Of Mag) 30 ml DAILY PRN PO CONSTIPATION; Start at 19:00 Bisacodyl (Dulcolax) 5 mg DAILY PRN PO CONSTIPATION; Start 07/07/16 at 19:00 Zolpidem Tartrate (Ambien) 5 mg QHS PRN PO SLEEP; Start 07/07/16 at 19:00 Famotidine (Pepcid) 20 mg Q12 PO Last administered on 07/10/16 21:32; Admin Dose 20 MG; Start 07/07/16 at 21:00 Enoxaparin Sodium (Lovenox) 40 mg DAILY SC Last administered on 07/10/16 09:31 ; Admin Dose 40 MG; Start 07/08/16 at 09:00 Amlodipine Besylate (Norvasc) 10 mg DAILY PO Last administered on 07/10/16 09: 26; Admin Dose 10 MG; Start 07/08/16 at 09:00 Atorvastatin Calcium (Lipitor) 20 mg QHS PO Last administered on 07/10/16 21: 32; Admin Dose 20 MG; Start 07/07/16 at 21:00 Hydrochlorothiazide (Hydrochlorothiazide) 25 mg DAILY PO Last administered on 09:26; Admin Dose 25 MG; Start 07/08/16 at 09:00 Losartan Potassium (Cozaar) 25 mg DAILY PO Last administered on 07/10/16 09:27 ; Admin Dose 25 MG; Start 07/08/16 at 09:00 Metoprolol Tartrate (Lopressor) 100 mg BID PO Last administered on 07/10/16 21 :32; Admin Dose 100 MG; Start 07/07/16 at 21:00 Hydralazine HCl (Apresoline) 10 mg Q6H PRN IV SBP>160; Start 07/07/16 at 19:30 Aspirin 81 mg 81 mg DAILY PO Last administered on 07/10/16 09:27; Admin Dose 81 MG; Start 07/10/16 at 09:00 Ceftriaxone Sodium (Rocephin) 50 ml @ 100 mls/hr Q24H IVPB Last administered on 07/10/16 18:17; Admin Dose 100 MLS/HR; Start 07/10/16 at 15:00 BOBY MACHUCA NP Jul 11, 2016 08:39
[2016-07-11] MEDS: FAMOTIDINE 20 MG TAB PO SCH ×2 (09:20→21:00)
[2016-07-11] MEDS: ASPIRIN (EC) 81 MG TAB PO SCH (09:20)
[2016-07-11] MEDS: AMLODIPINE 10 MG TAB PO SCH (09:21)
[2016-07-11] MEDS: HYDROCHLOROTHIAZIDE 25 MG TAB PO SCH (09:21)
[2016-07-11] MEDS: LOSARTAN 25 MG TAB PO SCH (09:22)
[2016-07-11] MEDS: METOPROLOL 100 MG TAB PO SCH ×2 (09:22→21:34)
[2016-07-11] MEDS: ENOXAPARIN 40 MG/0.4 ML SYG SC SCH (09:28)
--- NOTE | 2016-07-11 14:40 | RADRPT ---
PROCEDURE: CT scan of the abdomen, pelvis, and lower extremities with contrast. CT angiogram of th e abdomen, pelvis, and lower extremities. CLINICAL INDICATION: Abdominal and pelvic pain. Bilateral lower extremity pain. Gangrene of the r ight foot. TECHNIQUE: CT scan of the abdomen, pelvis, and lower extremities with contrast was performed with helical axial sections. The patient was scanned during intravenous administration of 115 ml of Visi paque 320. 2-D coronal reformatted images were obtained from the axial source images. In addition, 3-D post processing was performed. Total exam DLP is 121.31 mGy-cm. CTDIvol is 131.45 mGy. One o r more of the following dose reduction techniques were used: Automated exposure control, adjustment of the mA and/or kV according to patient size, use of iterative reconstruction technique. COMPARISON: Bilateral lower extremity arterial Doppler dated 07/07/2016 which demonstrated monopha sic flow bilaterally. FINDINGS: CT abdomen: The lung bases are normal. There is no pleural effusion or pericardial effusion. The heart size is normal. There is coronary artery calcification. The liver is normal in size and attenuation. There is a probable cyst in the lateral segment of the left hepatic lobe measuring 0.7 cm. There is no other focal hepatic lesion. The gallbladder and bile ducts are normal. The spleen is normal in size. There is no focal splenic lesion. The pancreas is normal with no mass or evidence of pancreatitis. There is a small nodule superiorly in the right adrenal measuring 1.[address] number of 104. T he left adrenal is normal. Both kidneys demonstrate normal contrast enhancement. The right kidney is atrophic measuring 7.5 cm in length with the left kidney measuring 10.9 cm in length. There is no solid renal mass or hydron ephrosis. There is a benign cyst in the mid left kidney laterally measuring 1.3 cm. There is no retroperitoneal lymphadenopathy or mass. The bowel and mesentery are normal. There is no free fluid or free gas. CT pelvis: There is no pelvic lymphadenopathy or mass. The bladder is distended but otherwise unremarkable. The periappendiceal region is unremarkable with no evidence of appendicitis. The bowel and mesentery are normal. There is no free fluid or free gas. CT osseous structures: There are degenerative changes of the spine and sacroiliac joints. There is an old superior end plat e compression fracture of L1 vertebral body. There is no acute fracture or lytic lesion. CT angiogram: The distal thoracic aorta is normal with no aneurysm or dissection. There is mild plaque throughout the wall of the abdominal aorta with no significant stenosis. Calci fication is present in the wall of the aorta consistent with atherosclerosis. The abdominal aorta i s otherwise normal with no aneurysm or dissection. The celiac axis, superior mesenteric artery, and inferior mesenteric artery are all well seen and ap pear normal with no stenosis or occlusion. There is a severe stenosis of the proximal right renal artery measuring approximately 90%. The left renal artery is normal. The right common iliac artery is completely occluded at the origin. The right internal iliac artery and external iliac artery are also completely occluded. There is reconstitution of the right commo n femoral artery via abdominal wall collateral arteries arising from an intercostal artery. The left common iliac artery and external iliac artery are patent. There are regions of stenosis in the left common iliac artery and external iliac artery measuring up to 30%. The left internal brayan c artery is completely occluded. The left common femoral artery is patent with regions of stenosis m easuring up to 50%. On the right side, the superficial femoral artery has a stenosis at the origin measuring approximate ly 50% and there are regions of stenosis throughout the remainder of the right superficial femoral a rtery measuring up to 50%. The right popliteal artery is widely patent. The right anterior tibial a rtery and peroneal artery are widely patent throughout. The right posterior tibial artery is occlud ed proximally. On the left side, there are regions of stenosis of the superficial femoral artery measuring up to 50 %. There may be a severe stenosis of the origin of the left superficial femoral artery. The left po pliteal artery is widely patent. The left anterior tibial artery is completely occluded in the midp ortion and reconstitutes with collateral vessels and is otherwise patent to the ankle. The left per azar artery is patent to the ankle. The left posterior tibial artery is occluded in the mid to dis lucila segment and reconstitutes at the ankle. IMPRESSION: 1. Coronary artery calcification. 2. Probable cyst in the left hepatic lobe. 3. Right adrenal nodule measuring 1.3 cm. Follow-up advised in 6-12 months. 4. Atrophic right kidney and severe right renal artery stenosis. 5. Benign left renal cyst. 6. Distended urinary bladder. 7. Degenerative changes of the spine. 8. Old superior endplate fracture of L1 vertebral body. 9. Atherosclerotic calcification in the aorta. 10. Severe stenosis of the proximal right renal artery measuring approximately 90%. 11. Normal left renal artery. 12. 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 13. Approximately a 50% stenosis of the right superficial femoral artery at the origin. Completely occluded right posterior tibial artery. 14. Possible severe stenosis of the origin of the left superficial femoral artery with regions of s tenosis in the left superficial femoral artery measuring up to 50%. 15. Occluded mid-left anterior tibial artery and mid to distal left posterior tibial artery. RPTAT: QQ .Kendrick Villarreal MD, MD Date Time Electronically viewed and signed by .Kendrick Villarreal MD, MD on 07/11/2016 14:40 .R/
--- NOTE | 2016-07-11 15:05 | RADRPT ---
PROCEDURE: CT angiography of the abdomen and pelvis with lower extremity runoff. CLINICAL INDICATION: Peripheral arterial disease. Nonhealing right foot ulcer. TECHNIQUE: CT angiography of the abdomen and pelvis with lower extremity runoff with contrast was performed on a multidetector high-resolution CT scanner. The patient was scanned delete the after t he uneventful intravenous administration of 120 cc of Omnipaque 350. 3D/multiplanar reformations wer e performed by the technologist and an independent workstation. Coronal and sagittal reformatted renee ges were obtained from the axial source images. Images were reviewed on a high-resolution PACS works tation. The total exam CTDI equals 16.9, 5.28 mGy and the total exam DLP equals 693.1 mGy-cm. One or more of the following dose reduction techniques were used: - Automated exposure control. - Adjustment of the mA and/or kV according to patient size. - Use of iterative reconstruction technique. COMPARISON: Ultrasound dated 07/07/2016. FINDINGS: Vascular findings: There are atherosclerotic changes of the aorta, which is ectatic. There is intramural thrombus with in the infrarenal abdominal aorta without aortic aneurysm or dissection. The celiac artery, SMA, an d single left renal artery are widely patent. There is short segment high-grade narrowing at the ri ght renal artery origin. There are multifocal tandem stenoses of the proximal RENEE, which may be flow -limiting. There is extensive atherosclerotic disease with scattered intramural thrombus throughout the left co mmon iliac artery and left external iliac artery. The left internal iliac artery is occluded. The right common iliac artery and external iliac artery are occluded. The common femoral artery is berna nstituted via collaterals at the level of the superior acetabulum and there is retrograde flow into the proximal common femoral artery. Right lower extremity: There is extensive atherosclerotic plaque within the lower extremity. The opacified portions of the common femoral artery demonstrate moderate atherosclerotic plaque. The superficial femoral artery i s attenuated throughout its course. There is narrowing of the mid distal SFA, which may be flow-fernandez iting. The profunda femoris artery is attenuated, but remains patent. The popliteal artery is attenu ated, but remains patent. The tibioperoneal trunk is markedly attenuated, but is patent. The anterior tibial artery is attenuated at its origin and occludes proximally. The peroneal artery is attenuated throughout its course, but remains patent into the foot. The posterior tibial artery occludes proximally and remains occluded throughout its course. Left lower extremity: There is extensive atherosclerotic plaque within the lower extremity. There is calcified and noncal cified plaque within the distal common femoral artery with associated luminal narrowing, which may b e flow-limiting. The profunda femoris artery is widely patent. There is narrowing at the SFA origin, which is likely flow limiting. There are multifocal tandem stenoses of the mid left SFA, which may be flow-limiting. The popliteal artery is patent. The tibioperoneal trunk is widely patent. There is high-grade narrowing at the anterior tibial artery origin, which is attenuated proximally, occluded at its midportion for approximately 2.9 cm segment, and reconstituted at the mid distal por tion demonstrating flow into the foot. The peroneal artery is widely patent into the foot. The posterior tibial artery is attenuated at its origin and proximal portions, occluded at its midpo rtion, and reconstituted distally via collaterals demonstrating flow into the foot. Nonvascular findings: The visualized lung bases are clear. The visualized heart is enlarged. There is a simple 9 mm cyst in the lateral left hepatic lobe. The liver is otherwise unremarkable. There is no intra or extra hepatic biliary ductal dilatation. The gallbladder, spleen, and pancreas unremarkable. There is bi lateral adrenal hyperplasia. There is asymmetric atrophy of the right kidney, likely related to nabil l vascular disease. There is a 1.2 cm cyst at the lower pole of the left kidney. There are no nabil l masses or hydronephrosis. There is no bowel wall thickening or evidence of obstruction. The appendix is not identified. Ther e is no mesenteric or retroperitoneal adenopathy. The uterus is surgically absent. There are no ad nexal masses. The urinary bladder is unremarkable. There is a mild compression deformity of the L1 vertebral body, age indeterminate. The bones are diffusely undermineralized. There are no concerni ng osseous lesions. IMPRESSION: 1. Atherosclerotic disease of the aorta, which is tortuous, with no aortic aneurysm or dissection. 2. Short segment high-grade narrowing of the right renal artery origin. Asymmetric atrophy of the r ight kidney, likely related to renal vascular disease. 3. Multifocal tandem stenoses of the proximal RENEE, which may be flow-limiting. 4. Occluded left internal iliac artery. 5. Occluded right common iliac artery and external iliac artery, with reconstitution of the common femoral artery via collaterals. 6. Right lower extremity: Attenuated SFA which demonstrates narrowing at its midportion, which may be flow-limiting. Occluded proximal VISHAL and TREE SCOUT with single vessel runoff via the peroneal artery to the foot. 7. Left lower extremity: Narrowing at the distal common femoral artery, which may be flow-limiting. Narrowing at the SFA origin, which may be flow-limiting. Multifocal tandem stenoses of the mid SF A, which may be flow-limiting. High-grade narrowing at the VISHAL origin. Occluded 2.9 cm segment of the mid VISHAL, reconstituted at its mid distal portion, demonstrating flow into the foot. Occluded PT A at its midportion, reconstituted distally demonstrating flow into the foot. 8. Cardiomegaly. 9. Benign 9 mm cyst in the lateral left hepatic lobe. 10. Benign 1.2 cm cyst at the lower pole left kidney. No further workup is necessary. 11. Mild compression deformity of the L1 vertebral body, age indeterminate. 12. Diffuse undermineralization of the bones. RPTAT: TT .Willie Dumont MD, Date Time Electronically viewed and signed by .Willie Dumont MD, on 07/11/2016 15:05 .P/
[2016-07-11] MEDS: CEFTRIAXONE 1 GM/50 ML (PMX) 50 ML IVPB SCH (15:27)
[2016-07-11 19:37] VITALS: BP 103/62; RESP 18
--- NOTE | 2016-07-11 19:46 | CONS ---
Date/Time of Note Date/Time of Note DATE: 07/11/16 TIME: 19:43 Consult Date/Type/Reason Admit Date/Time Jul 07, 2016 at 17:26 Initial Consult Date Type of Consultation: id Subjective no acute events, lying comfortably in bed, c/o foot pain, nad Objective Vital Signs Date Time Temp Pulse Resp B/P Pulse Ox O2 Delivery O2 Flow Rate FiO2 07/11/16 07:47 97.8 67 20 137/73 94 07/07/16 20:00 Room Air Intake and Output 07/10/16 07/10/16 07/11/16 15:00 23:00 07:00 Intake Total 100 ml 870 ml 240 ml Output Total 600 ml Balance 100 ml 870 ml -360 ml Results/Medications Result Diagram: 07/10/1651907/10/16 0520 Medications Current Medications Ondansetron HCl (Zofran Inj) 4 mg Q6H PRN IV NAUSEA AND/OR VOMITING; Start 07/07 at 19:00 Acetaminophen (Tylenol Tab) 650 mg Q6H PRN PO PAIN LEVEL 1-3 OR FEVER; Start at 19:00 Acetaminophen/ Hydrocodone Bitart ([place] (5/325)) 1 tab Q6H PRN PO MODERATE PAIN LEVEL 4-6; Start 07/07/16 at 19:00 Morphine Sulfate (morphine) 2 mg Q4H PRN IV SEVERE PAIN LEVEL 7-10 Last administered on 07/11/16 18:56; Admin Dose 2 MG; Start 07/07/16 at 19:00 Magnesium Hydroxide (Milk Of Mag) 30 ml DAILY PRN PO CONSTIPATION; Start at 19:00 Bisacodyl (Dulcolax) 5 mg DAILY PRN PO CONSTIPATION; Start 07/07/16 at 19:00 Zolpidem Tartrate (Ambien) 5 mg QHS PRN PO SLEEP; Start 07/07/16 at 19:00 Famotidine (Pepcid) 20 mg Q12 PO Last administered on 07/11/16 09:20; Admin Dose 20 MG; Start 07/07/16 at 21:00 Enoxaparin Sodium (Lovenox) 40 mg DAILY SC Last administered on 07/11/16 09:28 ; Admin Dose 40 MG; Start 07/08/16 at 09:00 Amlodipine Besylate (Norvasc) 10 mg DAILY PO Last administered on 07/11/16 09: 21; Admin Dose 10 MG; Start 07/08/16 at 09:00 Atorvastatin Calcium (Lipitor) 20 mg QHS PO Last administered on 07/10/16 21: 32; Admin Dose 20 MG; Start 07/07/16 at 21:00 Hydrochlorothiazide (Hydrochlorothiazide) 25 mg DAILY PO Last administered on 09:21; Admin Dose 25 MG; Start 07/08/16 at 09:00 Losartan Potassium (Cozaar) 25 mg DAILY PO Last administered on 07/11/16 09:22 ; Admin Dose 25 MG; Start 07/08/16 at 09:00 Metoprolol Tartrate (Lopressor) 100 mg BID PO Last administered on 07/11/16 09 :22; Admin Dose 100 MG; Start 07/07/16 at 21:00 Hydralazine HCl (Apresoline) 10 mg Q6H PRN IV SBP>160; Start 07/07/16 at 19:30 Aspirin 81 mg 81 mg DAILY PO Last administered on 07/11/16 09:20; Admin Dose 81 MG; Start 07/10/16 at 09:00 Ceftriaxone Sodium (Rocephin) 50 ml @ 100 mls/hr Q24H IVPB Last administered on 07/11/16 15:27; Admin Dose 100 MLS/HR; Start 07/10/16 at 15:00 Assessment/Plan Chief Complaint/Hosp Course MICROBIOLOGY: Right foot wound drainage grew RONALD. ANTIMICROBIALS: Rocephin. PHYSICAL EXAMINATION: GENERAL: Fragile, elderly woman who is alert, in no distress. HEENT: Head atraumatic, normocephalic. Sclerae anicteric. Buccal mucosa dry. NECK: Supple, trachea midline. CHEST: Rise symmetrical. Breath sounds clear. HEART: S1, S2. ABDOMEN: Soft. Bowel tones present. EXTREMITIES: With right foot erythema, necrotic toe and also the toe is cool to touch. ASSESSMENT: 1. Right foot cellulitis with necrotic toe. 2. Severe peripheral arterial disease. 3. Dyslipidemia. 4. Hypertension. PLAN: Clinically stable, continue abx, f/u podiatry and vascular rec-s. Pending CT angiogram. 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
[2016-07-11] MEDS: ATORVASTATIN 20 MG TAB PO SCH (21:34)
[2016-07-12] MEDS: morphine 2 MG INJ IV PRN ×4 (06:18→20:01)
[2016-07-12 07:07] LABS: POTASSIUM 3.3 mmol/L (3.5-5.1)
[2016-07-12 07:09] LABS: CREATININE 0.79 mg/dl (0.44-1.00)
[2016-07-12 07:10] LABS: BASOPHILS % 0.4 % (0.0-2.0); EOSINOPHILS # 0.1 10^3/ul (0.0-0.5); EOSINOPHILS % 0.8 % (0.0-7.0); HEMATOCRIT 42.6 % (37.0-47.0); HEMOGLOBIN 14.6 g/dl (12.0-16.0); LYMPHOCYTES # 2.3 10^3/ul (0.8-2.9); LYMPHOCYTES % 25.2 % (15.0-51.0); MEAN CORPUSCULAR HEMOGLOBIN 33.7 pg (29.0-33.0); MEAN CORPUSCULAR HGB CONC 34.2 g/dl (32.0-37.0); MEAN CORPUSCULAR VOLUME 98.4 fl (82.0-101.0); MONOCYTE # 0.6 10^3/ul (0.3-0.9); MONOCYTES % 6.8 % (0.0-11.0); NEUTROPHIL # 6.1 10^3/ul (1.6-7.5); NEUTROPHILS % 66.8 % (39.0-77.0); PLATELET COUNT 229 10^3/UL (140-440); RED BLOOD COUNT 4.32 10^6/ul (4.20-5.40); RED CELL DISTRIBUTION WIDTH 12.5 % (11.5-14.5); UNCORRECTED WBC 9.1 10^3/ul (4.8-10.8); WHITE BLOOD COUNT 9.1 10^3/ul (4.8-10.8)
[2016-07-12 07:39] LABS: CONDITION 1
[2016-07-12 07:40] VITALS: BP 125/66; RESP 18
--- NOTE | 2016-07-12 08:20 | CONS ---
DATE OF ADMISSION: 07/07/2016 DATE OF CONSULTATION: 07/12/2016 SUBJECTIVE FINDINGS: The patient is being followed for right foot cellulitis and gangrene of the to es, with further deterioration. The patient had CT angiography, with persistent pain to the foot. OBJECTIVE FINDINGS VITAL SIGNS: Temperature 98.3, pulse is 63, respiratory rate 18, blood pressure 103/62, pulse oxime try is 96. GENERAL: The patient is alert and oriented, in no acute distress. EXTREMITIES: Right foot with cellulitis of the dorsal aspect, with gangrenous changes to the third and fourth toes of the right foot. Mild odor. There is pain with passive range of motion. No sign s of decubitus ulceration. LABORATORY: WBC 7.1, hemoglobin 14, hematocrit 40.6, platelets 230. CT angio: Completely occluded right common iliac artery and right external iliac artery. Approximately 50% stenosis of the right superficial femoral artery at the origin, and completely occluded right posterior tibial artery. Se irvin stenosis of the right renal artery, approximately 90%. Stool culture, coliform. Foot culture, MRSA. ASSESSMENT: 1. Cellulitis, right foot and ankle. 2. Gangrene, right foot third and fourth toes. 3. Peripheral arterial disease, with complete occlusion of the right iliac and external iliac arter y, with 50% stenosis of the right superficial femoral artery. PLAN: Patient with persistent cyanosis of toes, likely to worsen without revascularization. Apprec iate input from Dr. Fields regarding surgical recommendations. Once revascularized she will need foot surgery. At this point continue topical antiseptic precautions and continue intravenous antib iotics. Discussed the plan of care with the patient. Dictated By: CARLOS HAQUE/ASAEL Conf#: [id number] DID#: [id number]
[2016-07-12] MEDS: METOPROLOL 100 MG TAB PO SCH ×2 (08:33→20:05)
[2016-07-12] MEDS: FAMOTIDINE 20 MG TAB PO SCH ×2 (08:33→20:02)
[2016-07-12] MEDS: AMLODIPINE 10 MG TAB PO SCH (08:33)
[2016-07-12] MEDS: LOSARTAN 25 MG TAB PO SCH (08:34)
[2016-07-12] MEDS: ASPIRIN (EC) 81 MG TAB PO SCH (08:34)
[2016-07-12] MEDS: HYDROCHLOROTHIAZIDE 25 MG TAB PO SCH (08:34)
[2016-07-12] MEDS: ENOXAPARIN 40 MG/0.4 ML SYG SC SCH (09:11)
[2016-07-12] MEDS: NICOTINE (21 MG/24 HR) PATCH TRANSDERM SCH (10:58)
[2016-07-12] MEDS ORDERED: POTASSIUM CHLORIDE (SR) 10 MEQ TAB PO ONE (11:00)
--- NOTE | 2016-07-12 14:41 | PN ---
Date/Time of Note Date/Time of Note DATE: 07/12/16 TIME: 14:39 Assessment/Plan VTE Prophylaxis VTE Prophylaxis Intervention: LMWH Lines/Catheters IV [facility]ter Type (from [email or web address] [place] Urinary Cath still in place: No Assessment/Plan Chief Complaint/Hosp Course 1. Right foot cellulitis. The patient was seen and evaluated by Podiatry. The patient will be provided with adequate pain control. The patient will be maintained on appropriate antibiotics. Wound culture positive for staph aureus. 2. Essential hypertension. Continue routine antihypertensives. Continue p.r.n. antihypertensives for any systolic blood pressure readings greater than 160 mmHg. 3. Dyslipidemia. Continue statins. 4. Peripheral vascular disease. Occluded right common iliac artery and external iliac artery. 50% stenosis of the right superficial femoral artery with completely occluded right posterior tibial artery. Possible severe stenosis of the origin of the left superficial femoral artery with regions of stenosis in the left superficial femoral artery measuring up to 50%. Occluded mid left anterior tibial artery and mid to distal left posterior tibial artery. Continue antiplatelet therapy. The patient being followed by vascular surgery. 5. Nicotine use. Will provide the patient with a nicotine patch. Will advise cessation. 6. Fluids, electrolytes, and nutrition. Low cholesterol diet. 7. DVT prophylaxis. Subcutaneous Lovenox. 8. Gastrointestinal prophylaxis. Histamine 2 receptor blockers. 9. Plan. Replete potassium continue pain control. Continue antibiotics. Await further recommendations from podiatry and vascular surgery. Case discussed with Dr. Dietz. Problems: Subjective 24 Hr Interval Summary Free Text/Dictation Complains of right foot pain. Exam/Review of Systems Vital Signs Vitals Vital Signs Date Time Temp Pulse Resp B/P Pulse Ox O2 Delivery O2 Flow Rate FiO2 07/12/16 07:40 98.0 68 18 125/66 93 Intake and Output 07/11/16 07/11/16 07/12/16 14:59 22:59 06:59 Intake Total 1610 ml 500 ml Output Total 1700 ml 600 ml Balance -90 ml -100 ml Exam GENERAL: This is a well-built, well-nourished female lying in bed in no apparent distress. HEENT: Head normocephalic and atraumatic. Eyes: Anicteric sclerae. Conjunctivae clear. ENT: Nasal septum is midline. Oral mucosa is moist. NECK: Supple. No JVD noticed. RESPIRATORY: Bilaterally clear to auscultation. No adventitious breath sounds. No use of accessory muscles of respiration. CARDIAC: Regular rate and rhythm. No murmurs heard. ABDOMEN: Soft, nontender, nondistended. Bowel sounds positive in all 4 quadrants. GENITOURINARY: Deferred. EXTREMITIES: No cyanosis, no clubbing, no edema. Peripheral pulses palpable. Bilateral pedal pulses diminished. Right foot erythema between the 3rd and 4th digits with radiation of erythema on the dorsal surface with tenderness to touch in the area. NEUROLOGIC: The patient is awake, alert and oriented. Cranial nerves are grossly intact. Results Result Diagram: 07/12/16 0510 07/12/16 0510 Results 24 hrs Laboratory Tests Test 07/12/16 05:10 Anion Gap 16 Basophils # 0.0 Basophils % 0.4 Blood Urea Nitrogen 20 # Calcium Level 10.0 Carbon Dioxide Level 32 H Chloride Level 97 Creatinine 0.79 Eosinophils # 0.1 Eosinophils % 0.8 Glucose Level 85 Hematocrit 42.6 Hemoglobin 14.6 Lymphocytes # 2.3 Lymphocytes % 25.2 Magnesium Level 2.0 Mean Corpuscular Hemoglobin 33.7 H Mean Corpuscular Hemoglobin Concent 34.2 Mean Corpuscular Volume 98.4 Mean Platelet Volume 10.0 Monocytes # 0.6 Monocytes % 6.8 Neutrophils # 6.1 Neutrophils % 66.8 Nucleated Red Blood Cells # 0.0 Nucleated Red Blood Cells % 0.0 Phosphorus Level 5.0 H Platelet Count 229 Potassium Level 3.3 L Red Blood Count 4.32 Red Cell Distribution Width 12.5 Sodium Level 142 White Blood Count 9.1 # Medications Medications Current Medications Ondansetron HCl (Zofran Inj) 4 mg Q6H PRN IV NAUSEA AND/OR VOMITING; Start 07/07 at 19:00 Acetaminophen (Tylenol Tab) 650 mg Q6H PRN PO PAIN LEVEL 1-3 OR FEVER; Start at 19:00 Acetaminophen/ Hydrocodone Bitart ([place] (5/325)) 1 tab Q6H PRN PO MODERATE PAIN LEVEL 4-6; Start 07/07/16 at 19:00 Morphine Sulfate (morphine) 2 mg Q4H PRN IV SEVERE PAIN LEVEL 7-10 Last administered on 07/12/16t 10:58; Admin Dose 2 MG; Start 07/07/16 at 19:00 Magnesium Hydroxide (Milk Of Mag) 30 ml DAILY PRN PO CONSTIPATION; Start at 19:00 Bisacodyl (Dulcolax) 5 mg DAILY PRN PO CONSTIPATION; Start 07/07/16 at 19:00 Zolpidem Tartrate (Ambien) 5 mg QHS PRN PO SLEEP; Start 07/07/16 at 19:00 Famotidine (Pepcid) 20 mg Q12 PO Last administered on 07/12/16 08:33; Admin Dose 20 MG; Start 07/07/16 at 21:00 Enoxaparin Sodium (Lovenox) 40 mg DAILY SC Last administered on 07/12/16 09:11 ; Admin Dose 40 MG; Start 07/08/16 at 09:00 Amlodipine Besylate (Norvasc) 10 mg DAILY PO Last administered on 07/12/16 08: 33; Admin Dose 10 MG; Start 07/08/16 at 09:00 Atorvastatin Calcium (Lipitor) 20 mg QHS PO Last administered on 07/11/16 21: 34; Admin Dose 20 MG; Start 07/07/16 at 21:00 Hydrochlorothiazide (Hydrochlorothiazide) 25 mg DAILY PO Last administered on 08:34; Admin Dose 25 MG; Start 07/08/16 at 09:00 Losartan Potassium (Cozaar) 25 mg DAILY PO Last administered on 07/12/16 08:34 ; Admin Dose 25 MG; Start 07/08/16 at 09:00 Metoprolol Tartrate (Lopressor) 100 mg BID PO Last administered on 07/12/16 08 :33; Admin Dose 100 MG; Start 07/07/16 at 21:00 Hydralazine HCl (Apresoline) 10 mg Q6H PRN IV SBP>160; Start 07/07/16 at 19:30 Aspirin 81 mg 81 mg DAILY PO Last administered on 07/12/16 08:34; Admin Dose 81 MG; Start 07/10/16 at 09:00 Ceftriaxone Sodium (Rocephin) 50 ml @ 100 mls/hr Q24H IVPB Last administered on 07/11/16 15:27; Admin Dose 100 MLS/HR; Start 07/10/16 at 15:00 Nicotine (Nicoderm 21 Mg/ 24hr) 1 patch DAILY TRANSDERM Last administered on t 10:58; Admin Dose 1 PATCH; Start 07/12/16 at 11:00 BOBY MACHUCA NP Jul 12, 2016 14:41
[2016-07-12] MEDS: CEFTRIAXONE 1 GM/50 ML (PMX) 50 ML IVPB SCH (16:00)
--- NOTE | 2016-07-12 16:51 | CONS ---
Date/Time of Note Date/Time of Note DATE: 07/12/16 TIME: 16:43 Assessment/Plan Assessment/Plan Chief Complaint/Hosp Course ID PROGRESS NOTE TOTAL ABX DAY # => 24H INTERVAL SUMMARY * Awake, alert, (+)pain, no fevers * MICROBIOLOGY: Right foot wound drainage grew RONALD. BCx (-), C.Diff (-), MRSA Nares (-) * ANTIMICROBIALS: Rocephin. * 07/11/16 CTA: IMPRESSION: 1. Atherosclerotic disease of the aorta, which is tortuous, with no aortic aneurysm or dissection. 2. Short segment high-grade narrowing of the right renal artery origin. Asymmetric atrophy of the right kidney, likely related to renal vascular disease. 3. Multifocal tandem stenoses of the proximal RENEE, which may be flow-limiting. 4. Occluded left internal iliac artery. 5. Occluded right common iliac artery and external iliac artery, with reconstitution of the common femoral artery via collaterals. 6. Right lower extremity: Attenuated SFA which demonstrates narrowing at its midportion, which may be flow-limiting. Occluded proximal VISHAL and [employer]ICE with single vessel runoff via the peroneal artery to the foot. 7. Left lower extremity: Narrowing at the distal common femoral artery, which may be flow-limiting. Narrowing at the SFA origin, which may be flow-limiting. Multifocal tandem stenoses of the mid SFA, which may be flow-limiting. High- grade narrowing at the VISHAL origin. Occluded 2.9 cm segment of the mid VISHAL, reconstituted at its mid distal portion, demonstrating flow into the foot. Occluded [employer] at its midportion, reconstituted distally demonstrating flow into the foot. 8. Cardiomegaly. 9. Benign 9 mm cyst in the lateral left hepatic lobe. 10. Benign 1.2 cm cyst at the lower pole left kidney. No further workup is necessary. 11. Mild compression deformity of the L1 vertebral body, age indeterminate. 12. Diffuse undermineralization of the bones. WOUND CULTURE Final Organism 1 STAPHYLOCOCCUS AUREUS QUANTITY 1+ S AUREUS M.I.C. RX --------- --- CEFAZOLIN S CIPROFLOXACIN <=0.5 S CLINDAMYCIN <=0.25 S DOXYCYCLINE S ERYTHROMYCIN <=0.25 S LEVOFLOXACIN 0.25 S OXACILLIN <=0.25 S PENICILLIN-G R RIFAMPIN <=0.5 S VANCOMYCIN 1 S TRIMETHOPRIM/SULFAMETHOXAZOLE <=10 S PHYSICAL EXAMINATION: GENERAL: 65 yo F, awake, c/o pain BLEXT feet/toe HEENT: Unremarkable NECK: Supple, trachea midline. CHEST: Rise symmetrical without dyspnea HEART: RRR ABDOMEN: Soft EXTREMITIES: Warm, right foot erythema, necrotic toe and also the toe is cool to touch. ID ASSESSMENT: 65 yo F w/long-term tobaccoism including current 5-cigs/day admit with: 1. Right foot cellulitis with necrotic toe => Painful 2. Severe peripheral arterial disease. 3. Dyslipidemia. 4. Hypertension. (-)MRSA Nares INVASIVES: * PIV CURRENT ABX: Ceftriaxone s/p ID RECOMMENDATIONS: CONTINUE Current ABX -> further recs APC Team . Problems: Consultation Date/Type/Reason Admit Date/Time Jul 07, 2016 at 17:26 Initial Consult Date Type of Consultation: id Exam/Review of Systems Vital Signs Vitals Vital Signs Date Time Temp Pulse Resp B/P Pulse Ox O2 Delivery O2 Flow Rate FiO2 07/12/16 07:40 98.0 68 18 125/66 93 Intake and Output 07/11/16 07/11/16 07/12/16 15:00 23:00 07:00 Intake Total 1610 ml 500 ml Output Total 1700 ml 600 ml Balance -90 ml -100 ml Results Result Diagram: 07/12/16 0510 07/12/16 0510 Results 24 hrs Laboratory Tests Test 07/12/16 05:10 Anion Gap 16 Basophils # 0.0 Basophils % 0.4 Blood Urea Nitrogen 20 # Calcium Level 10.0 Carbon Dioxide Level 32 H Chloride Level 97 Creatinine 0.79 Eosinophils # 0.1 Eosinophils % 0.8 Glucose Level 85 Hematocrit 42.6 Hemoglobin 14.6 Lymphocytes # 2.3 Lymphocytes % 25.2 Magnesium Level 2.0 Mean Corpuscular Hemoglobin 33.7 H Mean Corpuscular Hemoglobin Concent 34.2 Mean Corpuscular Volume 98.4 Mean Platelet Volume 10.0 Monocytes # 0.6 Monocytes % 6.8 Neutrophils # 6.1 Neutrophils % 66.8 Nucleated Red Blood Cells # 0.0 Nucleated Red Blood Cells % 0.0 Phosphorus Level 5.0 H Platelet Count 229 Potassium Level 3.3 L Red Blood Count 4.32 Red Cell Distribution Width 12.5 Sodium Level 142 White Blood Count 9.1 # Medications Medications Current Medications Ondansetron HCl (Zofran Inj) 4 mg Q6H PRN IV NAUSEA AND/OR VOMITING; Start 07/07 at 19:00 Acetaminophen (Tylenol Tab) 650 mg Q6H PRN PO PAIN LEVEL 1-3 OR FEVER; Start at 19:00 Acetaminophen/ Hydrocodone Bitart ([place] (5/325)) 1 tab Q6H PRN PO MODERATE PAIN LEVEL 4-6; Start 07/07/16 at 19:00 Morphine Sulfate (morphine) 2 mg Q4H PRN IV SEVERE PAIN LEVEL 7-10 Last administered on 07/12/16 15:12; Admin Dose 2 MG; Start 07/07/16 at 19:00 Magnesium Hydroxide (Milk Of Mag) 30 ml DAILY PRN PO CONSTIPATION; Start at 19:00 Bisacodyl (Dulcolax) 5 mg DAILY PRN PO CONSTIPATION; Start 07/07/16 at 19:00 Zolpidem Tartrate (Ambien) 5 mg QHS PRN PO SLEEP; Start 07/07/16 at 19:00 Famotidine (Pepcid) 20 mg Q12 PO Last administered on 07/12/16 08:33; Admin Dose 20 MG; Start 07/07/16 at 21:00 Enoxaparin Sodium (Lovenox) 40 mg DAILY SC Last administered on 07/12/16 09:11 ; Admin Dose 40 MG; Start 07/08/16 at 09:00 Amlodipine Besylate (Norvasc) 10 mg DAILY PO Last administered on 07/12/16 08: 33; Admin Dose 10 MG; Start 07/08/16 at 09:00 Atorvastatin Calcium (Lipitor) 20 mg QHS PO Last administered on 07/11/16 21: 34; Admin Dose 20 MG; Start 07/07/16 at 21:00 Hydrochlorothiazide (Hydrochlorothiazide) 25 mg DAILY PO Last administered on 08:34; Admin Dose 25 MG; Start 07/08/16 at 09:00 Losartan Potassium (Cozaar) 25 mg DAILY PO Last administered on 07/12/16 08:34 ; Admin Dose 25 MG; Start 07/08/16 at 09:00 Metoprolol Tartrate (Lopressor) 100 mg BID PO Last administered on 07/12/16 08 :33; Admin Dose 100 MG; Start 07/07/16 at 21:00 Hydralazine HCl (Apresoline) 10 mg Q6H PRN IV SBP>160; Start 07/07/16 at 19:30 Aspirin 81 mg 81 mg DAILY PO Last administered on 07/12/16 08:34; Admin Dose 81 MG; Start 07/10/16 at 09:00 Ceftriaxone Sodium (Rocephin) 50 ml @ 100 mls/hr Q24H IVPB Last administered on 07/12/16 16:00; Admin Dose 100 MLS/HR; Start 07/10/16 at 15:00 Nicotine (Nicoderm 21 Mg/ 24hr) 1 patch DAILY TRANSDERM Last administered on 10:58; Admin Dose 1 PATCH; Start 07/12/16 at 11:00 JESUSITA WEEKS NP Jul 12, 2016 16:51
--- NOTE | 2016-07-12 18:40 | PN ---
Date/Time of Note Date/Time of Note DATE: 07/12/16 TIME: 18:38 Assessment/Plan Lines/Catheters IV Catheter Type (from Nrsg): Saline Lock [place] in Place (from Nrsg): No Assessment/Plan Chief Complaint/Hosp Course IMPRESSION: Peripheral vascular disease with gangrene of the right distal foot. RECOMMENDATIONS: CT angiogram with severe peripheral arterial disease. plan for Angio on Thursday Discussed with the patient and the family. All questions answered. Problems: Subjective 24 Hr Interval Summary Constitutional: improved Pain Control: mild Exam/Review of Systems Vital Signs Vitals Vital Signs Date Time Temp Pulse Resp B/P Pulse Ox O2 Delivery O2 Flow Rate FiO2 07/12/16 07:40 98.0 68 18 125/66 93 Intake and Output 07/11/16 07/11/16 07/12/16 15:00 23:00 07:00 Intake Total 1610 ml 500 ml Output Total 1700 ml 600 ml Balance -90 ml -100 ml Results Result Diagram: 07/12/16 0510 07/12/16 0510 ORAL VILLANUEVA MD Jul 12, 2016 18:39
[2016-07-12 19:29] VITALS: BP 144/69; RESP 18
[2016-07-12] MEDS: ATORVASTATIN 20 MG TAB PO SCH (20:02)
[2016-07-13] MEDS: HYDROCODONE/APAP (5/325) TAB PO PRN ×3 (01:15→14:14)
[2016-07-13 07:32] VITALS: BP 124/71; RESP 18
[2016-07-13] MEDS: HYDROCHLOROTHIAZIDE 25 MG TAB PO SCH (08:49)
[2016-07-13] MEDS: LOSARTAN 25 MG TAB PO SCH (08:49)
[2016-07-13] MEDS: AMLODIPINE 10 MG TAB PO SCH (08:49)
[2016-07-13] MEDS: FAMOTIDINE 20 MG TAB PO SCH ×2 (08:50→20:42)
[2016-07-13] MEDS: METOPROLOL 100 MG TAB PO SCH ×2 (08:50→20:42)
[2016-07-13] MEDS: NICOTINE (21 MG/24 HR) PATCH TRANSDERM SCH (08:50)
[2016-07-13] MEDS: ASPIRIN (EC) 81 MG TAB PO SCH (08:50)
[2016-07-13] MEDS: ENOXAPARIN 40 MG/0.4 ML SYG SC SCH (08:52)
--- NOTE | 2016-07-13 11:22 | PN ---
Date/Time of Note Date/Time of Note DATE: 07/13/16 TIME: 11:19 Assessment/Plan VTE Prophylaxis VTE Prophylaxis Intervention: LMWH Lines/Catheters IV Catheter Type (from [facility] Saline Lock Urinary Cath still in place: No Assessment/Plan Chief Complaint/Hosp Course 1. Right foot cellulitis. The patient was seen and evaluated by Podiatry. The patient will be provided with adequate pain control. The patient will be maintained on appropriate antibiotics. Wound culture positive for staph aureus. 2. Essential hypertension. Continue routine antihypertensives. Continue p.r.n. antihypertensives for any systolic blood pressure readings greater than 160 mmHg. 3. Dyslipidemia. Continue statins. 4. Peripheral vascular disease. Occluded right common iliac artery and external iliac artery. 50% stenosis of the right superficial femoral artery with completely occluded right posterior tibial artery. Possible severe stenosis of the origin of the left superficial femoral artery with regions of stenosis in the left superficial femoral artery measuring up to 50%. Occluded mid left anterior tibial artery and mid to distal left posterior tibial artery. Continue antiplatelet therapy. The patient being followed by vascular surgery. Plan for angiogram on 07/14/2016. 5. Nicotine use. Will provide the patient with a nicotine patch. Will advise cessation. 6. Fluids, electrolytes, and nutrition. Low cholesterol diet. 7. DVT prophylaxis. Subcutaneous Lovenox. 8. Gastrointestinal prophylaxis. Histamine 2 receptor blockers. 9. Plan. Continue pain control. Continue antibiotics. Await further recommendations from podiatry and vascular surgery. Case discussed with Dr. Dietz. Problems: Subjective 24 Hr Interval Summary Free Text/Dictation Complains of pain in the right foot. Exam/Review of Systems Vital Signs Vitals Vital Signs Date Time Temp Pulse Resp B/P Pulse Ox O2 Delivery O2 Flow Rate FiO2 07/13/16 07:32 98.7 63 18 124/71 95 Intake and Output 07/12/16 07/12/16 07/13/16 15:00 23:00 07:00 Intake Total 1010 ml 340 ml Output Total 600 ml 900 ml Balance 410 ml -560 ml Exam GENERAL: This is a well-built, well-nourished female lying in bed in no apparent distress. HEENT: Head normocephalic and atraumatic. Eyes: Anicteric sclerae. Conjunctivae clear. ENT: Nasal septum is midline. Oral mucosa is moist. NECK: Supple. No JVD noticed. RESPIRATORY: Bilaterally clear to auscultation. No adventitious breath sounds. No use of accessory muscles of respiration. CARDIAC: Regular rate and rhythm. No murmurs heard. ABDOMEN: Soft, nontender, nondistended. Bowel sounds positive in all 4 quadrants. GENITOURINARY: Deferred. EXTREMITIES: No cyanosis, no clubbing, no edema. Peripheral pulses palpable. Bilateral pedal pulses diminished. Right foot erythema and is turning necrotic between the 3rd and 4th digits with radiation of erythema on the dorsal surface with tenderness to touch in the area. NEUROLOGIC: The patient is awake, alert and oriented. Cranial nerves are grossly intact. Results Result Diagram: 07/12/16 0510 07/12/16 0510 Medications Medications Current Medications Ondansetron HCl (Zofran Inj) 4 mg Q6H PRN IV NAUSEA AND/OR VOMITING; Start 07/07 at 19:00 Acetaminophen (Tylenol Tab) 650 mg Q6H PRN PO PAIN LEVEL 1-3 OR FEVER; Start at 19:00 Acetaminophen/ Hydrocodone Bitart ([place] (5/325)) 1 tab Q6H PRN PO MODERATE PAIN LEVEL 4-6 Last administered on 07/13/16 08:48; Admin Dose 1 TAB; Start 07/07/16 at 19:00 Morphine Sulfate (morphine) 2 mg Q4H PRN IV SEVERE PAIN LEVEL 7-10 Last administered on 07/12/16 20:01; Admin Dose 2 MG; Start 07/07/16 at 19:00 Magnesium Hydroxide (Milk Of Mag) 30 ml DAILY PRN PO CONSTIPATION; Start at 19:00 Bisacodyl (Dulcolax) 5 mg DAILY PRN PO CONSTIPATION; Start 07/07/16 at 19:00 Zolpidem Tartrate (Ambien) 5 mg QHS PRN PO SLEEP; Start 07/07/16 at 19:00 Famotidine (Pepcid) 20 mg Q12 PO Last administered on 07/13/16 08:50; Admin Dose 20 MG; Start 07/07/16 at 21:00 Enoxaparin Sodium (Lovenox) 40 mg DAILY SC Last administered on 07/13/16 08:52 ; Admin Dose 40 MG; Start 07/08/16 at 09:00 Amlodipine Besylate (Norvasc) 10 mg DAILY PO Last administered on 07/13/16 08: 49; Admin Dose 10 MG; Start 07/08/16 at 09:00 Atorvastatin Calcium (Lipitor) 20 mg QHS PO Last administered on 07/12/16 20: 02; Admin Dose 20 MG; Start 07/07/16 at 21:00 Hydrochlorothiazide (Hydrochlorothiazide) 25 mg DAILY PO Last administered on 08:49; Admin Dose 25 MG; Start 07/08/16 at 09:00 Losartan Potassium (Cozaar) 25 mg DAILY PO Last administered on 07/13/16 08:49 ; Admin Dose 25 MG; Start 07/08/16 at 09:00 Metoprolol Tartrate (Lopressor) 100 mg BID PO Last administered on 07/13/16 08 :50; Admin Dose 100 MG; Start 07/07/16 at 21:00 Hydralazine HCl (Apresoline) 10 mg Q6H PRN IV SBP>160; Start 07/07/16 at 19:30 Aspirin 81 mg 81 mg DAILY PO Last administered on 07/13/16 08:50; Admin Dose 81 MG; Start 07/10/16 at 09:00 Ceftriaxone Sodium (Rocephin) 50 ml @ 100 mls/hr Q24H IVPB Last administered on 07/12/16 16:00; Admin Dose 100 MLS/HR; Start 07/10/16 at 15:00 Nicotine (Nicoderm 21 Mg/ 24hr) 1 patch DAILY TRANSDERM Last administered on 08:50; Admin Dose 1 PATCH; Start 07/12/16 at 11:00 BOBY MACHUCA NP Jul 13, 2016 11:21
--- NOTE | 2016-07-13 13:51 | CONS ---
Date/Time of Note Date/Time of Note DATE: 07/13/16 TIME: 13:48 Assessment/Plan Assessment/Plan Chief Complaint/Hosp Course ID PROGRESS NOTE TOTAL ABX DAY #6 => Ceftriaxone 24H INTERVAL SUMMARY * Clincally status quo -- resting comfortable in bed, tells me the right foot cellulitis is improved, plan is for toe amputation, (+)pain, no fevers * MICROBIOLOGY: Right foot wound drainage grew RONALD. BCx (-), C.Diff (-), MRSA Nares (-) * ANTIMICROBIALS: Rocephin. WOUND CULTURE Final Organism 1 STAPHYLOCOCCUS AUREUS QUANTITY 1+ S AUREUS M.I.C. RX --------- --- CEFAZOLIN S CIPROFLOXACIN <=0.5 S CLINDAMYCIN <=0.25 S DOXYCYCLINE S ERYTHROMYCIN <=0.25 S LEVOFLOXACIN 0.25 S OXACILLIN <=0.25 S PENICILLIN-G R RIFAMPIN <=0.5 S VANCOMYCIN 1 S TRIMETHOPRIM/SULFAMETHOXAZOLE <=10 S PHYSICAL EXAMINATION: GENERAL: 65 yo F, awake, c/o pain BLEXT feet/toe HEENT: Unremarkable NECK: Supple, trachea midline. CHEST: Rise symmetrical without dyspnea HEART: RRR ABDOMEN: Soft EXTREMITIES: Warm, right foot erythema, necrotic toe and also the toe is cool to touch. ID ASSESSMENT: 65 yo F w/long-term tobaccoism including current 5-cigs/day admit with: 1. Right foot cellulitis with necrotic toe => Painful 2. Severe peripheral arterial disease BLEXT 3. Dyslipidemia. 4. Hypertension. (-)MRSA Nares INVASIVES: * PIV CURRENT ABX: Ceftriaxone #6 s/p VAnco IV ID RECOMMENDATIONS: CONTINUE Current ABX -> further recs APC Team . Problems: Consultation Date/Type/Reason Admit Date/Time Jul 07, 2016 at 17:26 Type of Consultation: id Exam/Review of Systems Vital Signs Vitals Vital Signs Date Time Temp Pulse Resp B/P Pulse Ox O2 Delivery O2 Flow Rate FiO2 07/13/16 07:32 98.7 63 18 124/71 95 Intake and Output 07/12/16 07/12/16 07/13/16 15:00 23:00 07:00 Intake Total 1010 ml 340 ml Output Total 600 ml 900 ml Balance 410 ml -560 ml Results Result Diagram: 07/12/16 0510 07/12/16 0510 Medications Medications Current Medications Ondansetron HCl (Zofran Inj) 4 mg Q6H PRN IV NAUSEA AND/OR VOMITING; Start 07/07 at 19:00 Acetaminophen (Tylenol Tab) 650 mg Q6H PRN PO PAIN LEVEL 1-3 OR FEVER; Start at 19:00 Acetaminophen/ Hydrocodone Bitart ([place] (5/325)) 1 tab Q6H PRN PO MODERATE PAIN LEVEL 4-6 Last administered on 07/13/16 08:48; Admin Dose 1 TAB; Start 07/07/16 at 19:00 Morphine Sulfate (morphine) 2 mg Q4H PRN IV SEVERE PAIN LEVEL 7-10 Last administered on 07/12/16 20:01; Admin Dose 2 MG; Start 07/07/16 at 19:00 Magnesium Hydroxide (Milk Of Mag) 30 ml DAILY PRN PO CONSTIPATION; Start at 19:00 Bisacodyl (Dulcolax) 5 mg DAILY PRN PO CONSTIPATION; Start 07/07/16 at 19:00 Zolpidem Tartrate (Ambien) 5 mg QHS PRN PO SLEEP; Start 07/07/16 at 19:00 Famotidine (Pepcid) 20 mg Q12 PO Last administered on 07/13/16 08:50; Admin Dose 20 MG; Start 07/07/16 at 21:00 Enoxaparin Sodium (Lovenox) 40 mg DAILY SC Last administered on 07/13/16 08:52 ; Admin Dose 40 MG; Start 07/08/16 at 09:00 Amlodipine Besylate (Norvasc) 10 mg DAILY PO Last administered on 07/13/16 08: 49; Admin Dose 10 MG; Start 07/08/16 at 09:00 Atorvastatin Calcium (Lipitor) 20 mg QHS PO Last administered on 07/12/16 20: 02; Admin Dose 20 MG; Start 07/07/16 at 21:00 Hydrochlorothiazide (Hydrochlorothiazide) 25 mg DAILY PO Last administered on 08:49; Admin Dose 25 MG; Start 07/08/16 at 09:00 Losartan Potassium (Cozaar) 25 mg DAILY PO Last administered on 07/13/16 08:49 ; Admin Dose 25 MG; Start 07/08/16 at 09:00 Metoprolol Tartrate (Lopressor) 100 mg BID PO Last administered on 07/13/16 08 :50; Admin Dose 100 MG; Start 07/07/16 at 21:00 Hydralazine HCl (Apresoline) 10 mg Q6H PRN IV SBP>160; Start 07/07/16 at 19:30 Aspirin 81 mg 81 mg DAILY PO Last administered on 07/13/16 08:50; Admin Dose 81 MG; Start 07/10/16 at 09:00 Ceftriaxone Sodium (Rocephin) 50 ml @ 100 mls/hr Q24H IVPB Last administered on 07/12/16 16:00; Admin Dose 100 MLS/HR; Start 07/10/16 at 15:00 Nicotine (Nicoderm 21 Mg/ 24hr) 1 patch DAILY TRANSDERM Last administered on 08:50; Admin Dose 1 PATCH; Start 07/12/16 at 11:00 JESUSITA WEEKS NP Jul 13, 2016 13:51
[2016-07-13] MEDS: CEFTRIAXONE 1 GM/50 ML (PMX) 50 ML IVPB SCH (15:09)
--- NOTE | 2016-07-13 17:04 | CONS ---
DATE OF ADMISSION: 07/07/2016 DATE OF CONSULTATION: 07/13/2016 SUBJECTIVE FINDINGS: The patient being followed for right foot cellulitis. Has persistent gangrene . CT angiography reveals aortoiliac and femoral disease. The patient being scheduled for angiograp hy on Thursday. The patient denies any fever, nausea, vomiting. Has persistent pain to the toes of t he right foot. OBJECTIVE FINDINGS: VITAL SIGNS: Temperature 98.7, pulse is 63, respiratory rate 18, blood pressure 124/71, pulse oxime try is 95%. GENERAL: The patient alert, oriented, no acute distress. RESPIRATORY: Regular respiration. EXTREMITIES: Right foot cool to touch. Has 1+ DP pulse. There is cyanosis with gangrene involving the fourth and third toes and has a prune appearance. Persistent cellulitis of the dorsal aspect o f the foot. No signs of decubitus ulcerations. LABORATORIES: WBC 9.1, hemoglobin 14.6, hematocrit 42.6, platelets 229. Sodium 142, potassium 3.3, chloride 97, CO2 of 32, BUN is 20, creatinine is 0.79. CT angio: Occluded right common iliac vandana ry and external iliac artery, 50% stenosis of right SFA with a completely occluded right posterior t ibial artery. ASSESSMENT: 1. Right foot cellulitis. 2. Right foot gangrene. 3. Peripheral arterial disease with inflow disease of the external iliac, common iliac artery, and right superficial femoral artery. 4. History of tobacco use. PLAN: Discussed with the patient. The patient is amenable for angiography, is being scheduled for Thursday, and will need revascularization. Once circulation restored, likely to require amputation of toes. Discussed with the patient. The patient is amenable. Continue topical antiseptic precautio ns. Recommend chlorhexidine b.i.d. The patient currently on ceftriaxone. Dictated By: CARLOS HAQUE/ASAEL Conf#: [id number] DID#: [id number]
[2016-07-13 19:37] VITALS: BP 107/62; RESP 18
[2016-07-13] MEDS: morphine 2 MG INJ IV PRN ×2 (20:01→23:57)
[2016-07-13] MEDS: ATORVASTATIN 20 MG TAB PO SCH (20:42)
[2016-07-14 06:35] LABS: POTASSIUM 3.1 mmol/L (3.5-5.1)
[2016-07-14 06:37] LABS: CREATININE 0.65 mg/dl (0.44-1.00)
[2016-07-14 06:38] LABS: CALCIUM 9.7 mg/dl (8.4-10.2); PHOSPHORUS 4.1 mg/dl (2.5-4.9)
[2016-07-14 06:40] LABS: BASOPHIL # 0.1 10^3/ul (0.0-0.1); BASOPHILS % 0.7 % (0.0-2.0); EOSINOPHILS # 0.1 10^3/ul (0.0-0.5); EOSINOPHILS % 1.1 % (0.0-7.0); HEMATOCRIT 40.8 % (37.0-47.0); HEMOGLOBIN 13.9 g/dl (12.0-16.0); LYMPHOCYTES # 1.5 10^3/ul (0.8-2.9); MEAN CORPUSCULAR HEMOGLOBIN 33.3 pg (29.0-33.0); MEAN CORPUSCULAR VOLUME 97.9 fl (82.0-101.0); MEAN PLATELET VOLUME 9.9 fl (7.4-10.4); MONOCYTE # 0.6 10^3/ul (0.3-0.9); MONOCYTES % 6.9 % (0.0-11.0); NEUTROPHIL # 6.3 10^3/ul (1.6-7.5); NEUTROPHILS % 73.3 % (39.0-77.0); PLATELET COUNT 216 10^3/UL (140-440); RED BLOOD COUNT 4.17 10^6/ul (4.20-5.40); RED CELL DISTRIBUTION WIDTH 12.4 % (11.5-14.5); UNCORRECTED WBC 8.6 10^3/ul (4.8-10.8); WHITE BLOOD COUNT 8.6 10^3/ul (4.8-10.8)
[2016-07-14 06:48] LABS: CONDITION 1
[2016-07-14 08:10] VITALS: BP 139/78; RESP 16
[2016-07-14] MEDS: morphine 2 MG INJ IV PRN ×4 (08:25→20:35)
[2016-07-14] MEDS: METOPROLOL 100 MG TAB PO SCH ×2 (09:00→21:03)
[2016-07-14] MEDS: HYDROCHLOROTHIAZIDE 25 MG TAB PO SCH (09:00)
[2016-07-14] MEDS: ENOXAPARIN 40 MG/0.4 ML SYG SC SCH (09:00)
[2016-07-14] MEDS: AMLODIPINE 10 MG TAB PO SCH (09:00)
[2016-07-14] MEDS: ASPIRIN (EC) 81 MG TAB PO SCH (09:00)
[2016-07-14] MEDS: FAMOTIDINE 20 MG TAB PO SCH ×2 (09:00→21:03)
[2016-07-14] MEDS: LOSARTAN 25 MG TAB PO SCH (09:00)
[2016-07-14] MEDS: NICOTINE (21 MG/24 HR) PATCH TRANSDERM SCH (09:38)
[2016-07-14] MEDS ORDERED: POTASSIUM CHLORIDE (SR) 20 MEQ TAB PO STA (10:04)
--- NOTE | 2016-07-14 14:12 | PN ---
Date/Time of Note Date/Time of Note DATE: 07/14/16 TIME: 14:09 Assessment/Plan VTE Prophylaxis VTE Prophylaxis Intervention: LMWH Lines/Catheters IV [facility]from [facility] Saline Lock Urinary Cath still in place: No Assessment/Plan Chief Complaint/Hosp Course 1. Right foot cellulitis 2/2 PVD The patient was seen and evaluated by Podiatry plan is that once circulation restored will require amputation of toes. The patient will be provided with adequate pain control. The patient will be maintained on appropriate antibiotics. Wound culture positive for staph aureus. 2. Essential hypertension. Continue routine antihypertensives. Continue p.r.n. antihypertensives for any systolic blood pressure readings greater than 160 mmHg. 3. Dyslipidemia. Continue statins. 4. Peripheral vascular disease. Occluded right common iliac artery and external iliac artery. 50% stenosis of the right superficial femoral artery with completely occluded right posterior tibial artery. Possible severe stenosis of the origin of the left superficial femoral artery with regions of stenosis in the left superficial femoral artery measuring up to 50%. Occluded mid left anterior tibial artery and mid to distal left posterior tibial artery. Continue antiplatelet therapy. The patient being followed by vascular surgery. Plan for angiogram today 5. Nicotine use. Will provide the patient with a nicotine patch. Will advise cessation. 6. Fluids, electrolytes, and nutrition. Low cholesterol diet. 7. DVT prophylaxis. Subcutaneous Lovenox. 8. Gastrointestinal prophylaxis. Histamine 2 receptor blockers. Problems: Subjective 24 Hr Interval Summary Constitutional: no complaints Exam/Review of Systems Vital Signs Vitals Vital Signs Date Time Temp Pulse Resp B/P Pulse Ox O2 Delivery O2 Flow Rate FiO2 07/14/16 08:10 98.1 74 16 139/78 97 Intake and Output 07/13/16 07/13/16 07/14/16 15:00 23:00 07:00 Intake Total 1290 ml 120 ml Output Total 900 ml Balance 1290 ml -780 ml Exam Constitutional: alert, oriented Respiratory: clear to auscultation Cardiovascular: regular rate and rhythm Gastrointestinal: soft, No distended Musculoskeletal: No nl extremities to inspection Results Result Diagram: 07/14/16 0508 07/14/16 0508 Results 24 hrs Laboratory Tests Test 07/14/16 05:08 Anion Gap 17 H Basophils # 0.1 Basophils % 0.7 Blood Urea Nitrogen 18 Calcium Level 9.7 Carbon Dioxide Level 31 Chloride Level 92 L Creatinine 0.65 Eosinophils # 0.1 Eosinophils % 1.1 Glucose Level 103 Hematocrit 40.8 Hemoglobin 13.9 Lymphocytes # 1.5 Lymphocytes % 18.0 Magnesium Level 2.0 Mean Corpuscular Hemoglobin 33.3 H Mean Corpuscular Hemoglobin Concent 34.0 Mean Corpuscular Volume 97.9 Mean Platelet Volume 9.9 Monocytes # 0.6 Monocytes % 6.9 Neutrophils # 6.3 Neutrophils % 73.3 Nucleated Red Blood Cells # 0.0 Nucleated Red Blood Cells % 0.0 Phosphorus Level 4.1 Platelet Count 216 Potassium Level 3.1 L Red Blood Count 4.17 L Red Cell Distribution Width 12.4 Sodium Level 137 White Blood Count 8.6 Medications Medications Current Medications Ondansetron HCl (Zofran Inj) 4 mg Q6H PRN IV NAUSEA AND/OR VOMITING; Start 07/07 at 19:00 Acetaminophen (Tylenol Tab) 650 mg Q6H PRN PO PAIN LEVEL 1-3 OR FEVER; Start at 19:00 Acetaminophen/ Hydrocodone Bitart ([place] (5/325)) 1 tab Q6H PRN PO MODERATE PAIN LEVEL 4-6 Last administered on 07/13/16 14:14; Admin Dose 1 TAB; Start 07/07/16 at 19:00 Morphine Sulfate (morphine) 2 mg Q4H PRN IV SEVERE PAIN LEVEL 7-10 Last administered on 07/14/16 12:36; Admin Dose 2 MG; Start 07/07/16 at 19:00 Magnesium Hydroxide (Milk Of Mag) 30 ml DAILY PRN PO CONSTIPATION; Start at 19:00 Bisacodyl (Dulcolax) 5 mg DAILY PRN PO CONSTIPATION; Start 07/07/16 at 19:00 Zolpidem Tartrate (Ambien) 5 mg QHS PRN PO SLEEP; Start 07/07/16 at 19:00 Famotidine (Pepcid) 20 mg Q12 PO Last administered on 07/13/16 20:42; Admin Dose 20 MG; Start 07/07/16 at 21:00 Enoxaparin Sodium (Lovenox) 40 mg DAILY SC Last administered on 07/13/16 08:52 ; Admin Dose 40 MG; Start 07/08/16 at 09:00 Amlodipine Besylate (Norvasc) 10 mg DAILY PO Last administered on 07/13/16 08: 49; Admin Dose 10 MG; Start 07/08/16 at 09:00 Atorvastatin Calcium (Lipitor) 20 mg QHS PO Last administered on 07/13/16 20: 42; Admin Dose 20 MG; Start 07/07/16 at 21:00 Hydrochlorothiazide (Hydrochlorothiazide) 25 mg DAILY PO Last administered on 08:49; Admin Dose 25 MG; Start 07/08/16 at 09:00 Losartan Potassium (Cozaar) 25 mg DAILY PO Last administered on 07/13/16 08:49 ; Admin Dose 25 MG; Start 07/08/16 at 09:00 Metoprolol Tartrate (Lopressor) 100 mg BID PO Last administered on 07/13/16 20 :42; Admin Dose 100 MG; Start 07/07/16 at 21:00 Hydralazine HCl (Apresoline) 10 mg Q6H PRN IV SBP>160; Start 07/07/16 at 19:30 Aspirin 81 mg 81 mg DAILY PO Last administered on 07/13/16 08:50; Admin Dose 81 MG; Start 07/10/16 at 09:00 Ceftriaxone Sodium (Rocephin) 50 ml @ 100 mls/hr Q24H IVPB Last administered on 07/13/16 15:09; Admin Dose 100 MLS/HR; Start 07/10/16 at 15:00 Nicotine (Nicoderm 21 Mg/ 24hr) 1 patch DAILY TRANSDERM Last administered on 09:38; Admin Dose 1 PATCH; Start 07/12/16 at 11:00 LAN VILLARREAL Jul 14, 2016 14:12
[2016-07-14] MEDS: CEFTRIAXONE 1 GM/50 ML (PMX) 50 ML IVPB SCH (15:22)
[2016-07-14] MEDS ORDERED: IODIXANOL LOCM 50 ML BTL ONE (17:15)
[2016-07-14] MEDS ORDERED: IODIXANOL LOCM 100 ML BTL ONE (17:15)
[2016-07-14] MEDS ORDERED: HEPARIN 1000 UNITS/ML 10 ML INJ ONE (17:15)
[2016-07-14] MEDS ORDERED: MIDAZOLAM 1 MG/ML 2 ML INJ ONE (17:15)
[2016-07-14] MEDS ORDERED: LIDOCAINE 1% (MDV) 20 ML INJ ONE (17:15)
[2016-07-14] MEDS ORDERED: FENTAnyl 50 MCG/ML VIAL ONE (17:15)
--- NOTE | 2016-07-14 17:54 | CONS ---
Date/Time of Note Date/Time of Note DATE: 07/14/16 TIME: 17:53 Assessment/Plan Assessment/Plan Chief Complaint/Hosp Course ID PROGRESS NOTE TOTAL ABX DAY #7 => Ceftriaxone 24H INTERVAL SUMMARY * Ambulated today -- NPO for pending angiogram - toe amputation planned after this * VSS, NAD, no fevers , (+)pain * MICROBIOLOGY: Right foot wound drainage grew RONALD. BCx (-), C.Diff (-), MRSA Nares (-) * ANTIMICROBIALS: Rocephin. WOUND CULTURE Final Organism 1 STAPHYLOCOCCUS AUREUS QUANTITY 1+ S AUREUS M.I.C. RX --------- --- CEFAZOLIN S CIPROFLOXACIN <=0.5 S CLINDAMYCIN <=0.25 S DOXYCYCLINE S ERYTHROMYCIN <=0.25 S LEVOFLOXACIN 0.25 S OXACILLIN <=0.25 S PENICILLIN-G R RIFAMPIN <=0.5 S VANCOMYCIN 1 S TRIMETHOPRIM/SULFAMETHOXAZOLE <=10 S PHYSICAL EXAMINATION: GENERAL: 65 yo F, awake, c/o pain BLEXT feet/toe HEENT: Unremarkable NECK: Supple, trachea midline. CHEST: Rise symmetrical without dyspnea HEART: RRR ABDOMEN: Soft EXTREMITIES: Warm, right foot erythema, necrotic toe and also the toe is cool to touch. ID ASSESSMENT: 65 yo F w/long-term tobaccoism including current 5-cigs/day admit with: 1. Right foot cellulitis with necrotic toe => Painful 2. Severe peripheral arterial disease BLEXT 3. Dyslipidemia. 4. Hypertension. (-)MRSA Nares INVASIVES: * PIV CURRENT ABX: Ceftriaxone #7 s/p VAnco IV ID RECOMMENDATIONS: CONTINUE Current ABX -> further recs APC Team -- NPO for pending angiogram - toe amputation planned after this . . Problems: Consultation Date/Type/Reason Admit Date/Time Jul 07, 2016 at 17:26 Type of Consultation: id Exam/Review of Systems Vital Signs Vitals Vital Signs Date Time Temp Pulse Resp B/P Pulse Ox O2 Delivery O2 Flow Rate FiO2 07/14/16 08:10 98.1 74 16 139/78 97 Intake and Output 07/13/16 07/13/16 07/14/16 15:00 23:00 07:00 Intake Total 1290 ml 120 ml Output Total 900 ml Balance 1290 ml -780 ml Results Result Diagram: 07/14/16 0508 07/14/16 0508 Results 24 hrs Laboratory Tests Test 07/14/16 05:08 Anion Gap 17 H Basophils # 0.1 Basophils % 0.7 Blood Urea Nitrogen 18 Calcium Level 9.7 Carbon Dioxide Level 31 Chloride Level 92 L Creatinine 0.65 Eosinophils # 0.1 Eosinophils % 1.1 Glucose Level 103 Hematocrit 40.8 Hemoglobin 13.9 Lymphocytes # 1.5 Lymphocytes % 18.0 Magnesium Level 2.0 Mean Corpuscular Hemoglobin 33.3 H Mean Corpuscular Hemoglobin Concent 34.0 Mean Corpuscular Volume 97.9 Mean Platelet Volume 9.9 Monocytes # 0.6 Monocytes % 6.9 Neutrophils # 6.3 Neutrophils % 73.3 Nucleated Red Blood Cells # 0.0 Nucleated Red Blood Cells % 0.0 Phosphorus Level 4.1 Platelet Count 216 Potassium Level 3.1 L Red Blood Count 4.17 L Red Cell Distribution Width 12.4 Sodium Level 137 White Blood Count 8.6 Medications Medications Current Medications Ondansetron HCl (Zofran Inj) 4 mg Q6H PRN IV NAUSEA AND/OR VOMITING; Start 07/07 at 19:00 Acetaminophen (Tylenol Tab) 650 mg Q6H PRN PO PAIN LEVEL 1-3 OR FEVER; Start at 19:00 Acetaminophen/ Hydrocodone Bitart ([place] (5/325)) 1 tab Q6H PRN PO MODERATE PAIN LEVEL 4-6 Last administered on 07/13/16 14:14; Admin Dose 1 TAB; Start 07/07/16 at 19:00 Morphine Sulfate (morphine) 2 mg Q4H PRN IV SEVERE PAIN LEVEL 7-10 Last administered on 07/14/16 16:33; Admin Dose 2 MG; Start 07/07/16 at 19:00 Magnesium Hydroxide (Milk Of Mag) 30 ml DAILY PRN PO CONSTIPATION; Start at 19:00 Bisacodyl (Dulcolax) 5 mg DAILY PRN PO CONSTIPATION; Start 07/07/16 at 19:00 Zolpidem Tartrate (Ambien) 5 mg QHS PRN PO SLEEP; Start 07/07/16 at 19:00 Famotidine (Pepcid) 20 mg Q12 PO Last administered on 07/13/16 20:42; Admin Dose 20 MG; Start 07/07/16 at 21:00 Enoxaparin Sodium (Lovenox) 40 mg DAILY SC Last administered on 07/13/16 08:52 ; Admin Dose 40 MG; Start 07/08/16 at 09:00 Amlodipine Besylate (Norvasc) 10 mg DAILY PO Last administered on 07/13/16 08: 49; Admin Dose 10 MG; Start 07/08/16 at 09:00 Atorvastatin Calcium (Lipitor) 20 mg QHS PO Last administered on 07/13/16 20: 42; Admin Dose 20 MG; Start 07/07/16 at 21:00 Hydrochlorothiazide (Hydrochlorothiazide) 25 mg DAILY PO Last administered on 08:49; Admin Dose 25 MG; Start 07/08/16 at 09:00 Losartan Potassium (Cozaar) 25 mg DAILY PO Last administered on 07/13/16 08:49 ; Admin Dose 25 MG; Start 07/08/16 at 09:00 Metoprolol Tartrate (Lopressor) 100 mg BID PO Last administered on 07/13/16 20 :42; Admin Dose 100 MG; Start 07/07/16 at 21:00 Hydralazine HCl (Apresoline) 10 mg Q6H PRN IV SBP>160; Start 07/07/16 at 19:30 Aspirin 81 mg 81 mg DAILY PO Last administered on 07/13/16 08:50; Admin Dose 81 MG; Start 07/10/16 at 09:00 Ceftriaxone Sodium (Rocephin) 50 ml @ 100 mls/hr Q24H IVPB Last administered on 07/14/16 15:22; Admin Dose 100 MLS/HR; Start 07/10/16 at 15:00 Nicotine (Nicoderm 21 Mg/ 24hr) 1 patch DAILY TRANSDERM Last administered on 09:38; Admin Dose 1 PATCH; Start 07/12/16 at 11:00 JESUSITA WEEKS NP Jul 14, 2016 17:54
[2016-07-14] MEDS ORDERED: morphine 10 MG INJ ONE (20:03)
[2016-07-14] MEDS ORDERED: SOD CHLORIDE 0.9% 500 ML ONE (20:03)
[2016-07-14 20:07] VITALS: BP 131/64; PULSE 82; RESP 20
[2016-07-14 20:50] VITALS: BP 137/80; RESP 18
[2016-07-14] MEDS: ATORVASTATIN 20 MG TAB PO SCH (21:03)
--- NOTE | 2016-07-15 00:03 | OPR ---
DATE OF OPERATION: PREOPERATIVE DIAGNOSIS: Severe peripheral vascular disease. POSTOPERATIVE DIAGNOSIS: Severe peripheral vascular disease. OPERATION PERFORMED: 1. Left iliac artery stent placement, 9 x 57 mm stent. 2. Abdominal aortogram. 3. Bilateral lower extremity runoff. 4. Catheter introduction into the abdominal aorta. 5. Ultrasound guidance into the central artery. 6. Interpretation and supervision of the abdominal aortogram. 7. Interpretation and supervision of the stent placement. 8. Fluoroscopy. 9. Conscious sedation for 1 hour. SURGEON: Oral Fields MD ANESTHESIA: Local plus IV sedation. CONSENT: Risks, benefits, complications, alternative therapies explained to the patient, consent ob tained. OPERATIVE TECHNIQUE: The patient was placed in supine position. Timeout was called and we started. Under ultrasonic guidance, access was gained in the left common iliac artery. Guidewire was advan shaheen through without any difficulty. Subcutaneous tissues were dilated. A 5-Hebrew sheath was advan shaheen over a guidewire and abdominal aortogram was done. Subsequently, bilateral lower extremity piyush ogram was done. Interpretation and supervision of the abdominal aortogram and runoff revealed abdominal aorta with d iffuse calcifications about 20% disease. On the right side, the right common iliac artery 100% occl uded, right internal iliac artery 100% occluded, right external iliac artery 100% occluded. Right c ommon femoral artery proximally occluded, distally opened up about a 5 mm vessel with diffuse diseas e. Right profunda appeared to be patent, but small, about 2 mm vessel with right superficial femora l artery with diffuse disease about 50%. Popliteal artery is small, about 4 mm, diffuse disease, ab out 30%. Contrast did not get much into the leg; however, the anterior tibial artery appeared to be patent proximally, small, maybe because of lack of contrast. Posterior tibial artery and peroneal could not be seen. On the left side, left common iliac artery was 100% occluded proximally. Left internal iliac artery was 100% occluded. External iliac artery had a 90% stenosis. Left common femoral artery had 30% s tenosis. Left profunda was a 3 mm vessel, which was diffusely diseased. Left superficial femoral a rtery was a 4 to 5 mm vessel, which was diffusely diseased with 80% stenosis in the middle. Poplite al artery appeared to be patent, about 3 to 4 mm vessel. All the tibial vessels were subtotaled. P osterior tibial artery was 100% occluded. Anterior tibial artery was subtotaled with a 90% stenosis proximally. There was a 1 mm vessel down to the ankle. The peroneal was also subtotal, 1 mm vesse l down to the ankle. The patient was given 5000 units of IV heparin. Left common iliac and external iliac artery stenosi s was stented using a 9 x 57 mm balloon up to 1 minute. Final angiogram was done, which showed 0% s tenosis in this area. The sheath, which had been enlarged from 5 to 7 sheath will be removed after checking ACT with pressure technique. The patient tolerated the procedure well. Dictated By: ORAL FIELDS MD FM/NTS Conf#: [id number] DID#: [id number] CC: MAYA STOUT MD;*EndCC*
[2016-07-15] MEDS: morphine 2 MG INJ IV PRN ×5 (00:36→21:07)
[2016-07-15 07:49] VITALS: BP 134/60; RESP 16
[2016-07-15] MEDS: AMLODIPINE 10 MG TAB PO SCH (08:15)
[2016-07-15] MEDS: ASPIRIN (EC) 81 MG TAB PO SCH (08:16)
[2016-07-15] MEDS: FAMOTIDINE 20 MG TAB PO SCH ×2 (08:16→21:25)
[2016-07-15] MEDS: METOPROLOL 100 MG TAB PO SCH ×2 (08:16→21:27)
[2016-07-15] MEDS: LOSARTAN 25 MG TAB PO SCH (08:17)
[2016-07-15] MEDS: NICOTINE (21 MG/24 HR) PATCH TRANSDERM SCH (08:17)
[2016-07-15] MEDS: HYDROCHLOROTHIAZIDE 25 MG TAB PO SCH (08:17)
[2016-07-15] MEDS: ENOXAPARIN 40 MG/0.4 ML SYG SC SCH (08:33)
--- NOTE | 2016-07-15 11:55 | PN ---
Date/Time of Note Date/Time of Note DATE: 07/15/16 TIME: 11:53 Assessment/Plan Lines/Catheters IV Catheter Type (from [facility]): Saline Lock [facility] in Place (from [facility]): No Assessment/Plan Chief Complaint/Hosp Course IMPRESSION: Peripheral vascular disease with gangrene of the right distal foot. RECOMMENDATIONS: CT angiogram with severe peripheral arterial disease. SP Angio and stent placement left iliac artery. Pt will nee Fem Fem bypass grafting after CARDIOLOGY CLEARANCE. Discussed with the patient and the family. All questions answered. Problems: Subjective 24 Hr Interval Summary Constitutional: improved Pain Control: mild Exam/Review of Systems Vital Signs Vitals Vital Signs Date Time Temp Pulse Resp B/P Pulse Ox O2 Delivery O2 Flow Rate FiO2 07/15/16 07:49 98.0 60 16 134/60 93 Intake and Output 07/14/16 07/14/16 07/15/16 15:00 23:00 07:00 Intake Total 50 ml 480 ml Output Total 500 ml Balance -450 ml 480 ml Exam Neck: non-tender, supple Respiratory: clear to auscultation, normal air movement Cardiovascular: nl pulses, regular rate and rhythm Results Result Diagram: 07/14/16 0508 07/14/16 0508 ORAL VILLANUEVA MD Jul 15, 2016 11:55
--- NOTE | 2016-07-15 12:00 | CONS ---
Date/Time of Note Date/Time of Note DATE: 07/15/16 TIME: 11:59 Consult Date/Type/Reason Admit Date/Time Jul 07, 2016 at 17:26 Type of Consultation: id Subjective alert, feels ok, no fevers, nad Objective Vital Signs Date Time Temp Pulse Resp B/P Pulse Ox O2 Delivery O2 Flow Rate FiO2 07/15/16 07:49 98.0 60 16 134/60 93 Intake and Output 07/14/16 07/14/16 07/15/16 15:00 23:00 07:00 Intake Total 50 ml 480 ml Output Total 500 ml Balance -450 ml 480 ml Results/Medications Result Diagram: 07/14/16 0508 07/14/16 0508 Medications Current Medications Ondansetron HCl (Zofran Inj) 4 mg Q6H PRN IV NAUSEA AND/OR VOMITING; Start 07/07 at 19:00 Acetaminophen (Tylenol Tab) 650 mg Q6H PRN PO PAIN LEVEL 1-3 OR FEVER; Start at 19:00 Acetaminophen/ Hydrocodone Bitart ([place] (5/325)) 1 tab Q6H PRN PO MODERATE PAIN LEVEL 4-6 Last administered on 07/13/16 14:14; Admin Dose 1 TAB; Start 07/07/16 at 19:00 Morphine Sulfate (morphine) 2 mg Q4H PRN IV SEVERE PAIN LEVEL 7-10 Last administered on 07/15/16 09:21; Admin Dose 2 MG; Start 07/07/16 at 19:00 Magnesium Hydroxide (Milk Of Mag) 30 ml DAILY PRN PO CONSTIPATION; Start at 19:00 Bisacodyl (Dulcolax) 5 mg DAILY PRN PO CONSTIPATION; Start 07/07/16 at 19:00 Zolpidem Tartrate (Ambien) 5 mg QHS PRN PO SLEEP; Start 07/07/16 at 19:00 Famotidine (Pepcid) 20 mg Q12 PO Last administered on 07/15/16 08:16; Admin Dose 20 MG; Start 07/07/16 at 21:00 Enoxaparin Sodium (Lovenox) 40 mg DAILY SC Last administered on 07/15/16 08:33 ; Admin Dose 40 MG; Start 07/08/16 at 09:00 Amlodipine Besylate (Norvasc) 10 mg DAILY PO Last administered on 07/15/16 08: 15; Admin Dose 10 MG; Start 07/08/16 at 09:00 Atorvastatin Calcium (Lipitor) 20 mg QHS PO Last administered on 07/14/16 21: 03; Admin Dose 20 MG; Start 07/07/16 at 21:00 Hydrochlorothiazide (Hydrochlorothiazide) 25 mg DAILY PO Last administered on 08:17; Admin Dose 25 MG; Start 07/08/16 at 09:00 Losartan Potassium (Cozaar) 25 mg DAILY PO Last administered on 07/15/16 08:17 ; Admin Dose 25 MG; Start 07/08/16 at 09:00 Metoprolol Tartrate (Lopressor) 100 mg BID PO Last administered on 07/15/16 08 :16; Admin Dose 100 MG; Start 07/07/16 at 21:00 Hydralazine HCl (Apresoline) 10 mg Q6H PRN IV SBP>160; Start 07/07/16 at 19:30 Aspirin 81 mg 81 mg DAILY PO Last administered on 07/15/16 08:16; Admin Dose 81 MG; Start 07/10/16 at 09:00 Ceftriaxone Sodium (Rocephin) 50 ml @ 100 mls/hr Q24H IVPB Last administered on 07/14/16 15:22; Admin Dose 100 MLS/HR; Start 07/10/16 at 15:00 Nicotine (Nicoderm 21 Mg/ 24hr) 1 patch DAILY TRANSDERM Last administered on 08:17; Admin Dose 1 PATCH; Start 07/12/16 at 11:00 Assessment/Plan Chief Complaint/Hosp Course MICROBIOLOGY: Right foot wound drainage grew RONALD. ANTIMICROBIALS: Rocephin. PHYSICAL EXAMINATION: GENERAL: Fragile, elderly woman who is alert, in no distress. HEENT: Head atraumatic, normocephalic. Sclerae anicteric. Buccal mucosa dry. NECK: Supple, trachea midline. CHEST: Rise symmetrical. Breath sounds clear. HEART: S1, S2. ABDOMEN: Soft. Bowel tones present. EXTREMITIES: With right foot erythema, necrotic toe and also the toe is cool to touch. ASSESSMENT: 1. Right foot cellulitis with gangrenous toe 2 to #2. 2. Severe peripheral arterial disease. 3. Dyslipidemia. 4. Hypertension. PLAN: Clinically stable, continue abx, pending cardiac clearance, pt will need fem-fem bypass grafting per vascular rec-s [facility] staff Problems: PENNY BORREGO NP Jul 15, 2016 12:00
[2016-07-15] MEDS: CEFTRIAXONE 1 GM/50 ML (PMX) 50 ML IVPB SCH (14:14)
[2016-07-15] MEDS ORDERED: POTASSIUM CHLORIDE (SR) 20 MEQ TAB PO STA (16:02)
--- NOTE | 2016-07-15 16:02 | PN ---
Date/Time of Note Date/Time of Note DATE: 07/15/16 TIME: 15:58 Assessment/Plan VTE Prophylaxis VTE Prophylaxis Intervention: LMWH Lines/Catheters IV [facility] Type (from [facility]): Saline Lock Urinary Cath still in place: No Assessment/Plan Chief Complaint/Hosp Course 1. Right foot cellulitis 2/2 PVD The patient was seen and evaluated by Podiatry plan is that once circulation restored will require amputation of toes. The patient will be provided with adequate pain control. The patient will be maintained on appropriate antibiotics. Wound culture positive for staph aureus. 2. Essential hypertension. Continue routine antihypertensives. Continue p.r.n. antihypertensives for any systolic blood pressure readings greater than 160 mmHg. 3. Dyslipidemia. Continue statins. 4. Peripheral vascular disease status post vascular intervention -Plan is for femoral bypass surgery, will obtain cardiology consultation for preop clearance -continue antiplatelet therapy -The patient being followed by vascular surgery 5. Nicotine use. Will provide the patient with a nicotine patch. Will advise cessation. 6. Fluids, electrolytes, and nutrition. Low cholesterol diet. 7. DVT prophylaxis. Subcutaneous Lovenox. 8. Gastrointestinal prophylaxis. Histamine 2 receptor blockers. Problems: Subjective 24 Hr Interval Summary Constitutional: no complaints Exam/Review of Systems Vital Signs Vitals Vital Signs Date Time Temp Pulse Resp B/P Pulse Ox O2 Delivery O2 Flow Rate FiO2 07/15/16 07:49 98.0 60 16 134/60 93 Intake and Output 07/14/16 07/14/16 07/15/16 15:00 23:00 07:00 Intake Total 50 ml 480 ml Output Total 500 ml Balance -450 ml 480 ml Exam Constitutional: alert, oriented Respiratory: clear to auscultation Cardiovascular: regular rate and rhythm Gastrointestinal: soft, No distended Musculoskeletal: No nl extremities to inspection Results Result Diagram: 07/14/16 0508 07/14/16 0508 Medications Medications Current Medications Ondansetron HCl (Zofran Inj) 4 mg Q6H PRN IV NAUSEA AND/OR VOMITING; Start 07/07 at 19:00 Acetaminophen (Tylenol Tab) 650 mg Q6H PRN PO PAIN LEVEL 1-3 OR FEVER; Start at 19:00 Acetaminophen/ Hydrocodone Bitart ([place] (5/325)) 1 tab Q6H PRN PO MODERATE PAIN LEVEL 4-6 Last administered on 07/13/16 14:14; Admin Dose 1 TAB; Start 07/07/16 at 19:00 Morphine Sulfate (morphine) 2 mg Q4H PRN IV SEVERE PAIN LEVEL 7-10 Last administered on 07/15/16 09:21; Admin Dose 2 MG; Start 07/07/16 at 19:00 Magnesium Hydroxide (Milk Of Mag) 30 ml DAILY PRN PO CONSTIPATION; Start at 19:00 Bisacodyl (Dulcolax) 5 mg DAILY PRN PO CONSTIPATION; Start 07/07/16 at 19:00 Zolpidem Tartrate (Ambien) 5 mg QHS PRN PO SLEEP; Start 07/07/16 at 19:00 Famotidine (Pepcid) 20 mg Q12 PO Last administered on 07/15/16 08:16; Admin Dose 20 MG; Start 07/07/16 at 21:00 Enoxaparin Sodium (Lovenox) 40 mg DAILY SC Last administered on 07/15/16 08:33 ; Admin Dose 40 MG; Start 07/08/16 at 09:00 Amlodipine Besylate (Norvasc) 10 mg DAILY PO Last administered on 07/15/16 08: 15; Admin Dose 10 MG; Start 07/08/16 at 09:00 Atorvastatin Calcium (Lipitor) 20 mg QHS PO Last administered on 07/14/16 21: 03; Admin Dose 20 MG; Start 07/07/16 at 21:00 Hydrochlorothiazide (Hydrochlorothiazide) 25 mg DAILY PO Last administered on 08:17; Admin Dose 25 MG; Start 07/08/16 at 09:00 Losartan Potassium (Cozaar) 25 mg DAILY PO Last administered on 07/15/16 08:17 ; Admin Dose 25 MG; Start 07/08/16 at 09:00 Metoprolol Tartrate (Lopressor) 100 mg BID PO Last administered on 07/15/16 08 :16; Admin Dose 100 MG; Start 07/07/16 at 21:00 Hydralazine HCl (Apresoline) 10 mg Q6H PRN IV SBP>160; Start 07/07/16 at 19:30 Aspirin 81 mg 81 mg DAILY PO Last administered on 07/15/16 08:16; Admin Dose 81 MG; Start 07/10/16 at 09:00 Ceftriaxone Sodium (Rocephin) 50 ml @ 100 mls/hr Q24H IVPB Last administered on 07/15/16 14:14; Admin Dose 100 MLS/HR; Start 07/10/16 at 15:00 Nicotine (Nicoderm 21 Mg/ 24hr) 1 patch DAILY TRANSDERM Last administered on 08:17; Admin Dose 1 PATCH; Start 07/12/16 at 11:00 LAN VILLARREAL Jul 15, 2016 16:01
--- NOTE | 2016-07-15 16:14 | RADRPT ---
Echocardiogram Report Patient Name: TAYLOR MITTAL Gender: Female Date: 1950 Study Date: 15-Jul-2016 Automatic Vulcanizing Lead Operator: Maya Garcia [facility] Location: 603 Ref. Physician: MARCELO HURST Quality: Adequate Procedures: Transthoracic echocardiogram with complete 2D, M-Mode, and doppler examination. Indications: Evaluate Left Ventricular function. Pre-op. 2D/M Mode Doppler Measurement Value Normal Ranges Measurement Value Normal Ranges LVIDd 2D 4.2 3.5 - 5.6 cm AV Peak Darrell 1.4 m/sec LVIDs 2D 1.6 2.1 - 4.1 cm AV Peak PG 7.0 mmHg FS 2D 61.5 % AI Peak PG 38.0 mmHg LVPWd 2D 0.8 0.6 - 1.1 cm AI Peak Darrell 3.1 m/sec IVSd 2D 0.8 0.6 - 1.1 cm AI PHT 710.0 msec IVS/LVPW 2D 1.0 LVOT Peak Darrell 1.0 m/sec AoR Diam 2D 3.4 2.0 - 3.7 cm LVOT Peak PG 4.0 mmHg LA/Ao 2D 1 0 - 1 MV E Peak Darrell 0.6 m/sec EDV 2D 75.7 cm3 MV A Peak Darrell 1.0 m/sec ESV 2D 4.3 cm3 MV E/A 0.6 LA Dimen 2D 3.0 2.3 - 4.0 cm MV Decel Time 299 msec MV E/A 0.6 TR Peak Darrell 2.7 m/sec TR Peak PG 29.0 mmHg RVSP 32.0 mmHg Findings Left Ventricle: Normal left ventricular systolic function. Normal left ventricular cavity size. Normal left ventricular wall thickness. Ejection fraction is visually estimated at 60 %. Tissue Doppler/Mitral Doppler indices are consistent with impaired relaxation (Stage I diastolic dysfunction). Right Ventricle: Normal right ventricular size. Normal right ventricular systolic function. Left Atrium: The left atrium is normal in size. Right Atrium: The right atrium is normal in size. Mitral Valve: Mild mitral leaflet calcification. Mild mitral annular calcification. Trace mitral regurgitation. Aortic Valve: No hemodynamically significant aortic stenosis by doppler. Aortic cusps appear mildly calcified. Mild aortic valve regurgitation. Tricuspid Valve: Normal appearance of the tricuspid valve. Estimated peak PA systolic pressure 32 mmHg. There is mild tricuspid regurgitation. Pericardium: Normal pericardium with no significant pericardial effusion. Aorta: Normal aortic root. IVC: Normal size and normal respiratory collapse consistent with normal right atrial pressure. Conclusions Normal left ventricular systolic function. Normal left ventricular cavity size. Normal left ventricular wall thickness. Ejection fraction is visually estimated at 60 %. Tissue Doppler/Mitral Doppler indices are consistent with impaired relaxation (Stage I diastolic dysfunction). Normal right ventricular size. Normal right ventricular systolic function. The left atrium is normal in size. The right atrium is normal in size. No hemodynamically significant aortic stenosis by doppler. Mild aortic valve regurgitation. Estimated peak PA systolic pressure 32 mmHg. There is mild tricuspid regurgitation. Trace mitral regurgitation. Normal pericardium with no significant pericardial effusion. Electronically Signed By: Marcelo Hurst 15-Jul-2016 16:12:59 -0800 Patient Name: TAYLOR MITTAL Study Date: 15-Jul-[id number]
--- NOTE | 2016-07-15 18:40 | CONS ---
DATE OF ADMISSION: 07/07/2016 DATE OF CONSULTATION: 07/15/2016 SUBJECTIVE FINDINGS: The patient being followed for cellulitis, gangrene to toes, right foot. The patient is status post left iliac artery stent angioplasty and has been recommended a fem-to-fem byp ass graft once cleared by cardiology. The patient without any complaints of a fever, nausea, vomiti ng. OBJECTIVE FINDINGS VITAL SIGNS: Temperature 98, pulse is 60, respiratory rate 16, blood pressure 134/60. Pulse ox is 93 on room air. GENERAL: The patient alert and oriented, in no acute distress. Regular respiration. EXTREMITIES: Right foot: Toes are cool and has a 1+ DP. There is gangrene of the toes at the leve l of the metatarsophalangeal joint with persistent cellulitis to the dorsal aspect of foot. Has rebel n with palpation with passive range of motion of the toes. LABORATORIES: WBC 8.6, hemoglobin 13.9, hematocrit 40.8, platelets 216. Sodium 137, potassium 3.1, chloride 92, CO2 of 31, BUN 18, creatinine 0.65, glucose is 103. ASSESSMENT: 1. Right foot cellulitis. 2. Right foot gangrene. 3. Peripheral arterial disease, status post left iliac artery stent placement with pending fem-fem bypass. PLAN: Status post stent angioplasty of left, pending fem-fem bypass graft, currently toes stable wi th incomplete demarcation. Continue antiseptic precautions daily and discussed amputation of toes. The patient is amenable. Discussed timing of planned procedure. Dictated By: CARLOS HAQUE/ASAEL Conf#: [id number] DID#: [id number]
[2016-07-15 19:42] VITALS: BP 110/55; RESP 16
--- NOTE | 2016-07-15 19:56 | CONS ---
Date/Time of Note Date/Time of Note DATE: 07/15/16 TIME: 19:45 Assessment/Plan Assessment/Plan Additional Assessment/Plan Preoperative cardiac risk stratification Preserved ejection fraction Abnormal ECG Peripheral arterial disease Hypertension Dyslipidemia Tobacco use -Patient with limited exercise capacity secondary to peripheral arterial disease. Echocardiogram with preserved ejection fraction, ECG with ST segment abnormalities. Would need ischemic workup for risk factor stratification prior to surgery. Would plan for vasodilatory nuclear perfusion study in the morning. Would continue aspirin, beta yumiko, start statin therapy. Consultation Date/Type/Reason Admit Date/Time Jul 07, 2016 at 17:26 Type of Consultation: cv Reason for Consultation Preoperative cardiac risk stratification Hx of Present Illness This is a 65-year-old female with past medical history of hypertension, peripheral arterial disease, tobacco use who presents with right foot gangrene and cellulitis. Symptoms began approximately one month ago. She has been having exertional claudication symptoms going on over the past year in her bilateral lower extremities, worse so on the right. Patient was admitted, found to have severe peripheral arterial disease. She has an occluded right common iliac artery. She is status post stenting to the left common iliac. She is planned to undergo peripheral bypass secondary to necrotic toes and poor wound healing of the right foot. Cardiology consultation was requested preoperatively for risk stratification. Her activity has been limited by lower extremity claudication. She can walk up to approximately 30-40 feet and then stops because of leg cramping. She can climb one to 2 flights of stairs and then stops because of shortness of breath. She denies exertional chest pain. She denies any known cardiac history. 12 point review of systems was performed with all pertinent positives and negatives mentioned above and all else is negative. Constitutional: no complaints Past Medical History PAD HTN HLD Past Surgical History Hysterectomy Endovascular intervention Family History Significant Family History: no pertinent family hx Social History Smoking Status: Current every day smoker Other Social History retired Exam/Review of Systems Vital Signs Vitals Vital Signs Date Time Temp Pulse Resp B/P Pulse Ox O2 Delivery O2 Flow Rate FiO2 07/15/16 19:42 98.4 78 16 110/55 94 Intake and Output 07/14/16 07/14/16 07/15/16 15:00 23:00 07:00 Intake Total 50 ml 480 ml Output Total 500 ml Balance -450 ml 480 ml Exam nad Constitutional: alert, oriented Head: normocephalic Neck: supple Respiratory: clear to auscultation, normal air movement Cardiovascular: other (s1s2, no murmurs appreciated), regular rate and rhythm Gastrointestinal: bowel sounds, non-tender, other (no guarding), soft Extremities: other (erythema R foot with necrotic toes) Results Result Diagram: 07/14/16 0508 07/14/16 0508 Medications Medications Current Medications Ondansetron HCl (Zofran Inj) 4 mg Q6H PRN IV NAUSEA AND/OR VOMITING; Start 07/07 at 19:00 Acetaminophen (Tylenol Tab) 650 mg Q6H PRN PO PAIN LEVEL 1-3 OR FEVER; Start at 19:00 Acetaminophen/ Hydrocodone Bitart ([place] (5/325)) 1 tab Q6H PRN PO MODERATE PAIN LEVEL 4-6 Last administered on 07/13/16 14:14; Admin Dose 1 TAB; Start 07/07/16 at 19:00 Morphine Sulfate (morphine) 2 mg Q4H PRN IV SEVERE PAIN LEVEL 7-10 Last administered on 07/15/16 15:59; Admin Dose 2 MG; Start 07/07/16 at 19:00 Magnesium Hydroxide (Milk Of Mag) 30 ml DAILY PRN PO CONSTIPATION; Start at 19:00 Bisacodyl (Dulcolax) 5 mg DAILY PRN PO CONSTIPATION; Start 07/07/16 at 19:00 Zolpidem Tartrate (Ambien) 5 mg QHS PRN PO SLEEP; Start 07/07/16 at 19:00 Famotidine (Pepcid) 20 mg Q12 PO Last administered on 07/15/16 08:16; Admin Dose 20 MG; Start 07/07/16 at 21:00 Enoxaparin Sodium (Lovenox) 40 mg DAILY SC Last administered on 07/15/16 08:33 ; Admin Dose 40 MG; Start 07/08/16 at 09:00 Amlodipine Besylate (Norvasc) 10 mg DAILY PO Last administered on 07/15/16 08: 15; Admin Dose 10 MG; Start 07/08/16 at 09:00 Atorvastatin Calcium (Lipitor) 20 mg QHS PO Last administered on 07/14/16 21: 03; Admin Dose 20 MG; Start 07/07/16 at 21:00 Hydrochlorothiazide (Hydrochlorothiazide) 25 mg DAILY PO Last administered on 08:17; Admin Dose 25 MG; Start 07/08/16 at 09:00 Losartan Potassium (Cozaar) 25 mg DAILY PO Last administered on 07/15/16 08:17 ; Admin Dose 25 MG; Start 07/08/16 at 09:00 Metoprolol Tartrate (Lopressor) 100 mg BID PO Last administered on 07/15/16 08 :16; Admin Dose 100 MG; Start 07/07/16 at 21:00 Hydralazine HCl (Apresoline) 10 mg Q6H PRN IV SBP>160; Start 07/07/16 at 19:30 Aspirin 81 mg 81 mg DAILY PO Last administered on 07/15/16 08:16; Admin Dose 81 MG; Start 07/10/16 at 09:00 Ceftriaxone Sodium (Rocephin) 50 ml @ 100 mls/hr Q24H IVPB Last administered on 07/15/16 14:14; Admin Dose 100 MLS/HR; Start 07/10/16 at 15:00 Nicotine (Nicoderm 21 Mg/ 24hr) 1 patch DAILY TRANSDERM Last administered on 08:17; Admin Dose 1 PATCH; Start 07/12/16 at 11:00 Procedures Procedures ecg with sr, inferior and lateral diffuse st segment abnormalities Marcelo Hurst DO Jul 15, 2016 19:55
[2016-07-15] MEDS ORDERED: ATORVASTATIN 20 MG TAB PO SCH (21:00)
[2016-07-15] MEDS: ATORVASTATIN 20 MG TAB PO SCH (21:25)
[2016-07-15] MEDS ORDERED: POTASSIUM CHLORIDE (SR) 20 MEQ TAB PO SCH (22:00)
[2016-07-15] MEDS: HYDROCODONE/APAP (5/325) TAB PO PRN (23:48)
[2016-07-16] MEDS: morphine 2 MG INJ IV PRN ×5 (03:39→22:08)
[2016-07-16 06:32] LABS: POTASSIUM 4.3 mmol/L (3.5-5.1)
[2016-07-16 06:34] LABS: EOSINOPHILS # 0.1 10^3/ul (0.0-0.5); HEMATOCRIT 37.5 % (37.0-47.0); HEMOGLOBIN 12.9 g/dl (12.0-16.0); LYMPHOCYTES # 1.7 10^3/ul (0.8-2.9); LYMPHOCYTES % 18.3 % (15.0-51.0); MEAN CORPUSCULAR HEMOGLOBIN 33.7 pg (29.0-33.0); MEAN CORPUSCULAR HGB CONC 34.5 g/dl (32.0-37.0); MEAN CORPUSCULAR VOLUME 97.8 fl (82.0-101.0); MEAN PLATELET VOLUME 10.1 fl (7.4-10.4); MONOCYTE # 0.7 10^3/ul (0.3-0.9); MONOCYTES % 7.2 % (0.0-11.0); NEUTROPHILS % 73.5 % (39.0-77.0); PLATELET COUNT 219 10^3/UL (140-440); RED BLOOD COUNT 3.84 10^6/ul (4.20-5.40); RED CELL DISTRIBUTION WIDTH 12.4 % (11.5-14.5); UNCORRECTED WBC 9.5 10^3/ul (4.8-10.8); WHITE BLOOD COUNT 9.5 10^3/ul (4.8-10.8)
[2016-07-16 06:35] LABS: CREATININE 0.71 mg/dl (0.44-1.00)
[2016-07-16 06:36] LABS: CALCIUM 9.6 mg/dl (8.4-10.2)
[2016-07-16 06:43] LABS: CONDITION 1
[2016-07-16 07:25] VITALS: BP 133/67; RESP 16
[2016-07-16] MEDS: NICOTINE (21 MG/24 HR) PATCH TRANSDERM SCH (08:39)
[2016-07-16] MEDS: HYDROCHLOROTHIAZIDE 25 MG TAB PO SCH (08:40)
[2016-07-16] MEDS: LOSARTAN 25 MG TAB PO SCH (08:40)
[2016-07-16] MEDS: AMLODIPINE 10 MG TAB PO SCH (08:40)
[2016-07-16] MEDS: FAMOTIDINE 20 MG TAB PO SCH ×2 (08:40→20:22)
[2016-07-16] MEDS: ASPIRIN (EC) 81 MG TAB PO SCH (08:40)
[2016-07-16] MEDS: METOPROLOL 100 MG TAB PO SCH ×2 (08:41→20:23)
[2016-07-16] MEDS: ENOXAPARIN 40 MG/0.4 ML SYG SC SCH (08:59)
[2016-07-16] MEDS ORDERED: REGADENOSON 0.4 MG/5 ML SYG ONE (09:24)
--- NOTE | 2016-07-16 12:17 | RADRPT ---
PROCEDURE: Lexiscan myocardial perfusion study CLINICAL INDICATION: 65 -year-old patient complaining of chest pain. TECHNIQUE: Lexiscan 0.4 mg intravenously separate acquisition gated myocardial perfusion SPECT usi ng Tc 99m Myoview 28.2 mCi intravenously at stress and Tc-99m Myoview, 9.3 mCi intravenously at rest was performed using the rest/stress sequence. Poststress Myoview SPECT images were obtained in the supine position. COMPARISON: No prior studies. FINDINGS: Perfusion images reveal no evidence of perfusion defects. Lexiscan post stress gated SPECT images demonstrate no wall motion abnormalities. IMPRESSION: 1. No evidence of perfusion defects. 2. No wall motion abnormalities. 3. The left ventricle ejection fraction at stress is 69%. A call report was made to Dr. Hurst at 12:16 p.m. on July 16 2016. RPTAT: HH .Christine Rivas MD, Date Time Electronically viewed and signed by .Christine Rivas MD, on 07/16/2016 12:17 .L/
--- NOTE | 2016-07-16 13:32 | CONS ---
Date/Time of Note Date/Time of Note DATE: 07/16/16 TIME: 13:31 Consult Date/Type/Reason Admit Date/Time Jul 07, 2016 at 17:26 Type of Consultation: ID Subjective no acute changes, no fevers, alert, feels good Objective Vital Signs Date Time Temp Pulse Resp B/P Pulse Ox O2 Delivery O2 Flow Rate FiO2 07/16/16 07:25 98.4 68 16 133/67 94 Intake and Output 07/15/16 07/15/16 07/16/16 15:00 23:00 07:00 Intake Total 50 ml 600 ml 540 ml Output Total 1 ml Balance 50 ml 600 ml 539 ml Results/Medications Result Diagram: 07/16/16 0525 07/16/16 0525 Results 24 hrs Laboratory Tests Test 07/16/16 05:25 Anion Gap 16 Basophils # 0.0 Basophils % 0.0 Blood Urea Nitrogen 17 Calcium Level 9.6 Carbon Dioxide Level 28 Chloride Level 100 Creatinine 0.71 Eosinophils # 0.1 Eosinophils % 1.0 Glucose Level 90 Hematocrit 37.5 Hemoglobin 12.9 Lymphocytes # 1.7 Lymphocytes % 18.3 Magnesium Level 2.1 Mean Corpuscular Hemoglobin 33.7 H Mean Corpuscular Hemoglobin Concent 34.5 Mean Corpuscular Volume 97.8 Mean Platelet Volume 10.1 Monocytes # 0.7 Monocytes % 7.2 Neutrophils # 7.0 Neutrophils % 73.5 Nucleated Red Blood Cells # 0.0 Nucleated Red Blood Cells % 0.0 Platelet Count 219 Potassium Level 4.3 Red Blood Count 3.84 L Red Cell Distribution Width 12.4 Sodium Level 140 White Blood Count 9.5 Medications Current Medications Ondansetron HCl (Zofran Inj) 4 mg Q6H PRN IV NAUSEA AND/OR VOMITING; Start 07/07 at 19:00 Acetaminophen (Tylenol Tab) 650 mg Q6H PRN PO PAIN LEVEL 1-3 OR FEVER; Start at 19:00 Acetaminophen/ Hydrocodone Bitart ([place] (5/325)) 1 tab Q6H PRN PO MODERATE PAIN LEVEL 4-6 Last administered on 07/15/16 23:48; Admin Dose 1 TAB; Start 07/07/16 at 19:00 Morphine Sulfate (morphine) 2 mg Q4H PRN IV SEVERE PAIN LEVEL 7-10 Last administered on 07/16/16 13:01; Admin Dose 2 MG; Start 07/07/16 at 19:00 Magnesium Hydroxide (Milk Of Mag) 30 ml DAILY PRN PO CONSTIPATION; Start at 19:00 Bisacodyl (Dulcolax) 5 mg DAILY PRN PO CONSTIPATION; Start 07/07/16 at 19:00 Zolpidem Tartrate (Ambien) 5 mg QHS PRN PO SLEEP; Start 07/07/16 at 19:00 Famotidine (Pepcid) 20 mg Q12 PO Last administered on 07/16/16 08:40; Admin Dose 20 MG; Start 07/07/16 at 21:00 Enoxaparin Sodium (Lovenox) 40 mg DAILY SC Last administered on 07/16/16 08:59 ; Admin Dose 40 MG; Start 07/08/16 at 09:00 Amlodipine Besylate (Norvasc) 10 mg DAILY PO Last administered on 07/16/16 08: 40; Admin Dose 10 MG; Start 07/08/16 at 09:00 Atorvastatin Calcium (Lipitor) 20 mg QHS PO Last administered on 07/15/16 21: 25; Admin Dose 20 MG; Start 07/07/16 at 21:00 Hydrochlorothiazide (Hydrochlorothiazide) 25 mg DAILY PO Last administered on 08:40; Admin Dose 25 MG; Start 07/08/16 at 09:00 Losartan Potassium (Cozaar) 25 mg DAILY PO Last administered on 07/16/16 08:40 ; Admin Dose 25 MG; Start 07/08/16 at 09:00 Metoprolol Tartrate (Lopressor) 100 mg BID PO Last administered on 07/16/16 08 :41; Admin Dose 100 MG; Start 07/07/16 at 21:00 Hydralazine HCl (Apresoline) 10 mg Q6H PRN IV SBP>160; Start 07/07/16 at 19:30 Aspirin 81 mg 81 mg DAILY PO Last administered on 07/16/16 08:40; Admin Dose 81 MG; Start 07/10/16 at 09:00 Ceftriaxone Sodium (Rocephin) 50 ml @ 100 mls/hr Q24H IVPB Last administered on 07/15/16 14:14; Admin Dose 100 MLS/HR; Start 07/10/16 at 15:00 Nicotine (Nicoderm 21 Mg/ 24hr) 1 patch DAILY TRANSDERM Last administered on t 08:39; Admin Dose 1 PATCH; Start 07/12/16 at 11:00 Assessment/Plan Chief Complaint/Hosp Course MICROBIOLOGY: Right foot wound drainage grew RONALD. ANTIMICROBIALS: Rocephin. PHYSICAL EXAMINATION: GENERAL: Fragile, elderly woman who is alert, in no distress. HEENT: Head atraumatic, normocephalic. Sclerae anicteric. Buccal mucosa dry. NECK: Supple, trachea midline. CHEST: Rise symmetrical. Breath sounds clear. HEART: S1, S2. ABDOMEN: Soft. Bowel tones present. EXTREMITIES: With right foot erythema, necrotic toe and also the toe is cool to touch. ASSESSMENT: 1. Right foot cellulitis with gangrenous toe 2 to #2. 2. Severe peripheral arterial disease. 3. Dyslipidemia. 4. Hypertension. PLAN: Clinically stable, continue abx, pending cardiac clearance, pt will need fem-fem bypass grafting per vascular rec-s [facility] staff Problems: PENNY BORREGO NP Jul 16, 2016 13:32
--- NOTE | 2016-07-16 13:51 | RADRPT ---
Vent Rate: 62 bpm RR Interval: 0 msec DC Interval: 168 msec QRS Duration: 74 msec QT Interval: 426 msec QTC Interval: 432 msec P-R-T [place]: 41 - 70 - 71 degrees Normal sinus rhythm Possible Left atrial enlargement Nonspecific ST and T wave abnormality Abnormal ECG Electronically Signed By: Marcelo Hurst [id number]
--- NOTE | 2016-07-16 14:42 | CARRPT ---
DATE OF PROCEDURE: 07/16/2016 PROCEDURE: Lexiscan nuclear stress test. PATIENT HISTORY: This is a 65-year-old patient with abnormal ECG, peripheral arterial disease, for preoperative cardiac risk stratification. Baseline ECG demonstrates sinus bradycardia at 54 beats per minute, there are lateral ST depressions inferiorly. Baseline heart rate was 54. Baseline blood pressure was 117/58. Lexiscan was administered as per protocol. Symptoms were shortness of breath, which resolved. ECG demonstrated diffuse ST segment abnormalities, but no increase compared to the baseline ECG. Arrhythmias: None. Peak heart rate was 74. Peak blood pressure was 111/62. ECG INTERPRETATION: Uninterpretable, secondary to baseline ECG abnormalities. The radiology portion will be interpreted by Radiology colleagues. Dictated By: RINA YIP/ASAEL Conf#: [id number] DID#: [id number]
[2016-07-16] MEDS: CEFTRIAXONE 1 GM/50 ML (PMX) 50 ML IVPB SCH (14:43)
--- NOTE | 2016-07-16 17:40 | PN ---
Date/Time of Note Date/Time of Note DATE: 07/16/16 TIME: 17:35 Assessment/Plan VTE Prophylaxis VTE Prophylaxis Intervention: LMWH Lines/Catheters IV Catheter Type (from [facility]): Saline Lock Urinary Cath still in place: No Assessment/Plan Chief Complaint/Hosp Course 1. Right foot cellulitis 2/2 PVD The patient was seen and evaluated by Podiatry plan is that once circulation restored will require amputation of toes. The patient will be provided with adequate pain control. The patient will be maintained on appropriate antibiotics. Wound culture positive for staph aureus. 2. Essential hypertension. Continue routine antihypertensives. Continue p.r.n. antihypertensives for any systolic blood pressure readings greater than 160 mmHg. 3. Dyslipidemia. Continue statins. 4. Peripheral vascular disease status post vascular intervention -Plan is for femoral bypass surgery, cardiology consultation for preop clearance appreciated, Nuclear Stress test negative -continue antiplatelet therapy -The patient being followed by vascular surgery 5. Nicotine use. Will provide the patient with a nicotine patch. Will advise cessation. 6. Fluids, electrolytes, and nutrition. Low cholesterol diet. 7. DVT prophylaxis. Subcutaneous Lovenox. 8. Gastrointestinal prophylaxis. Histamine 2 receptor blockers. Problems: Subjective 24 Hr Interval Summary Constitutional: no complaints Exam/Review of Systems Vital Signs Vitals Vital Signs Date Time Temp Pulse Resp B/P Pulse Ox O2 Delivery O2 Flow Rate FiO2 07/16/16 07:25 98.4 68 16 133/67 94 Intake and Output 07/15/16 07/15/16 07/16/16 15:00 23:00 07:00 Intake Total 50 ml 600 ml 540 ml Output Total 1 ml Balance 50 ml 600 ml 539 ml Exam Constitutional: alert, oriented Respiratory: clear to auscultation Cardiovascular: regular rate and rhythm Gastrointestinal: soft, No distended Musculoskeletal: No nl extremities to inspection Results Result Diagram: 07/16/16 0525 07/16/16 0525 Results 24 hrs Laboratory Tests Test 07/16/16 05:25 Anion Gap 16 Basophils # 0.0 Basophils % 0.0 Blood Urea Nitrogen 17 Calcium Level 9.6 Carbon Dioxide Level 28 Chloride Level 100 Creatinine 0.71 Eosinophils # 0.1 Eosinophils % 1.0 Glucose Level 90 Hematocrit 37.5 Hemoglobin 12.9 Lymphocytes # 1.7 Lymphocytes % 18.3 Magnesium Level 2.1 Mean Corpuscular Hemoglobin 33.7 H Mean Corpuscular Hemoglobin Concent 34.5 Mean Corpuscular Volume 97.8 Mean Platelet Volume 10.1 Monocytes # 0.7 Monocytes % 7.2 Neutrophils # 7.0 Neutrophils % 73.5 Nucleated Red Blood Cells # 0.0 Nucleated Red Blood Cells % 0.0 Platelet Count 219 Potassium Level 4.3 Red Blood Count 3.84 L Red Cell Distribution Width 12.4 Sodium Level 140 White Blood Count 9.5 Medications Medications Current Medications Ondansetron HCl (Zofran Inj) 4 mg Q6H PRN IV NAUSEA AND/OR VOMITING; Start 07/07 at 19:00 Acetaminophen (Tylenol Tab) 650 mg Q6H PRN PO PAIN LEVEL 1-3 OR FEVER; Start at 19:00 Acetaminophen/ Hydrocodone Bitart ([place] (5/325)) 1 tab Q6H PRN PO MODERATE PAIN LEVEL 4-6 Last administered on 07/15/16 23:48; Admin Dose 1 TAB; Start 07/07/16 at 19:00 Morphine Sulfate (morphine) 2 mg Q4H PRN IV SEVERE PAIN LEVEL 7-10 Last administered on 07/16/16 13:01; Admin Dose 2 MG; Start 07/07/16 at 19:00 Magnesium Hydroxide (Milk Of Mag) 30 ml DAILY PRN PO CONSTIPATION; Start at 19:00 Bisacodyl (Dulcolax) 5 mg DAILY PRN PO CONSTIPATION; Start 07/07/16 at 19:00 Zolpidem Tartrate (Ambien) 5 mg QHS PRN PO SLEEP; Start 07/07/16 at 19:00 Famotidine (Pepcid) 20 mg Q12 PO Last administered on 07/16/16 08:40; Admin Dose 20 MG; Start 07/07/16 at 21:00 Enoxaparin Sodium (Lovenox) 40 mg DAILY SC Last administered on 07/16/16 08:59 ; Admin Dose 40 MG; Start 07/08/16 at 09:00 Amlodipine Besylate (Norvasc) 10 mg DAILY PO Last administered on 07/16/16 08: 40; Admin Dose 10 MG; Start 07/08/16 at 09:00 Atorvastatin Calcium (Lipitor) 20 mg QHS PO Last administered on 07/15/16 21: 25; Admin Dose 20 MG; Start 07/07/16 at 21:00 Hydrochlorothiazide (Hydrochlorothiazide) 25 mg DAILY PO Last administered on 08:40; Admin Dose 25 MG; Start 07/08/16 at 09:00 Losartan Potassium (Cozaar) 25 mg DAILY PO Last administered on 07/16/16 08:40 ; Admin Dose 25 MG; Start 07/08/16 at 09:00 Metoprolol Tartrate (Lopressor) 100 mg BID PO Last administered on 07/16/16 08 :41; Admin Dose 100 MG; Start 07/07/16 at 21:00 Hydralazine HCl (Apresoline) 10 mg Q6H PRN IV SBP>160; Start 07/07/16 at 19:30 Aspirin 81 mg 81 mg DAILY PO Last administered on 07/16/16 08:40; Admin Dose 81 MG; Start 07/10/16 at 09:00 Ceftriaxone Sodium (Rocephin) 50 ml @ 100 mls/hr Q24H IVPB Last administered on 07/16/16 14:43; Admin Dose 100 MLS/HR; Start 07/10/16 at 15:00 Nicotine (Nicoderm 21 Mg/ 24hr) 1 patch DAILY TRANSDERM Last administered on 08:39; Admin Dose 1 PATCH; Start 07/12/16 at 11:00 LAN VILLARREAL Jul 16, 2016 17:40
--- NOTE | 2016-07-16 17:53 | PN ---
Date/Time of Note Date/Time of Note DATE: 07/16/16 TIME: 17:53 Assessment/Plan Lines/Catheters IV [facility] Type [facility] Saline Lock [place] in Place (from Nrs): No Assessment/Plan Chief Complaint/Hosp Course IMPRESSION: Peripheral vascular disease with gangrene of the right distal foot. RECOMMENDATIONS: CT angiogram with severe peripheral arterial disease. SP Angio and stent placement left iliac artery. Pt will nee Fem Fem bypass grafting after CARDIOLOGY CLEARANCE. Discussed with the patient and the family. All questions answered. Problems: Subjective 24 Hr Interval Summary Constitutional: improved Pain Control: mild Exam/Review of Systems Vital Signs Vitals Vital Signs Date Time Temp Pulse Resp B/P Pulse Ox O2 Delivery O2 Flow Rate FiO2 07/16/16 07:25 98.4 68 16 133/67 94 Intake and Output 07/15/16 07/15/16 07/16/16 15:00 23:00 07:00 Intake Total 50 ml 600 ml 540 ml Output Total 1 ml Balance 50 ml 600 ml 539 ml Exam ENMT: mucosa pink and moist, nl external ears & nose, nl lips & teeth, nl nasal mucosa & septum Neck: non-tender, supple Respiratory: clear to auscultation, normal air movement Cardiovascular: nl pulses, regular rate and rhythm Results Result Diagram: 07/16/16 0525 07/16/16 0525 ORAL VILLANUEVA MD Jul 16, 2016 17:53
--- NOTE | 2016-07-16 19:31 | CONS ---
Date/Time of Note Date/Time of Note DATE: 07/16/16 TIME: 19:24 Assessment/Plan Assessment/Plan Additional Assessment/Plan Preoperative cardiac risk stratification Preserved ejection fraction Abnormal ECG Peripheral arterial disease with critical limb ischemia Hypertension Dyslipidemia Tobacco use -Patient status post nuclear vasodilatory cardiac perfusion study with no evidence of ischemia. Left ventricular ejection fraction preserved. Discussion had with our vascular surgeon, patient plan for fem-fem peripheral bypass. Given her multiple risk factors, our patient is at an intermediate risk for any untoward cardiac events for her planned procedure. Given the critical limb ischemia, the benefits likely outweigh the risks. Would continue aspirin, statin , beta yumiko alonso and post-operatively. Consultation Date/Type/Reason Admit Date/Time Jul 07, 2016 at 17:26 Initial Consult Date Type of Consultation: cv 24 HR Interval Summary Free Text/Dictation Patient denies any chest pain, shortness of breath or palpitations Exam/Review of Systems Vital Signs Vitals Vital Signs Date Time Temp Pulse Resp B/P Pulse Ox O2 Delivery O2 Flow Rate FiO2 07/16/16 07:25 98.4 68 16 133/67 94 Intake and Output 07/15/16 07/15/16 07/16/16 15:00 23:00 07:00 Intake Total 50 ml 600 ml 540 ml Output Total 1 ml Balance 50 ml 600 ml 539 ml Exam No apparent distress Constitutional: alert, oriented Head: normocephalic Neck: supple Respiratory: other (course breath sounds bilaterally, no wheezing) Cardiovascular: other (S1-S2 heard), regular rate and rhythm Gastrointestinal: bowel sounds, non-tender, soft Extremities: other (right lower extremity erythema and necrotic toes) Results Result Diagram: 07/16/16 0525 07/16/16 0525 Results 24 hrs Laboratory Tests Test 07/16/16 05:25 Anion Gap 16 Basophils # 0.0 Basophils % 0.0 Blood Urea Nitrogen 17 Calcium Level 9.6 Carbon Dioxide Level 28 Chloride Level 100 Creatinine 0.71 Eosinophils # 0.1 Eosinophils % 1.0 Glucose Level 90 Hematocrit 37.5 Hemoglobin 12.9 Lymphocytes # 1.7 Lymphocytes % 18.3 Magnesium Level 2.1 Mean Corpuscular Hemoglobin 33.7 H Mean Corpuscular Hemoglobin Concent 34.5 Mean Corpuscular Volume 97.8 Mean Platelet Volume 10.1 Monocytes # 0.7 Monocytes % 7.2 Neutrophils # 7.0 Neutrophils % 73.5 Nucleated Red Blood Cells # 0.0 Nucleated Red Blood Cells % 0.0 Platelet Count 219 Potassium Level 4.3 Red Blood Count 3.84 L Red Cell Distribution Width 12.4 Sodium Level 140 White Blood Count 9.5 Medications Medications Current Medications Ondansetron HCl (Zofran Inj) 4 mg Q6H PRN IV NAUSEA AND/OR VOMITING; Start 07/07 at 19:00 Acetaminophen (Tylenol Tab) 650 mg Q6H PRN PO PAIN LEVEL 1-3 OR FEVER; Start at 19:00 Acetaminophen/ Hydrocodone Bitart ([place] (5/325)) 1 tab Q6H PRN PO MODERATE PAIN LEVEL 4-6 Last administered on 07/15/16 23:48; Admin Dose 1 TAB; Start 07/07/16 at 19:00 Morphine Sulfate (morphine) 2 mg Q4H PRN IV SEVERE PAIN LEVEL 7-10 Last administered on 07/16/16 18:09; Admin Dose 2 MG; Start 07/07/16 at 19:00 Magnesium Hydroxide (Milk Of Mag) 30 ml DAILY PRN PO CONSTIPATION; Start at 19:00 Bisacodyl (Dulcolax) 5 mg DAILY PRN PO CONSTIPATION; Start 07/07/16 at 19:00 Zolpidem Tartrate (Ambien) 5 mg QHS PRN PO SLEEP; Start 07/07/16 at 19:00 Famotidine (Pepcid) 20 mg Q12 PO Last administered on 07/16/16 08:40; Admin Dose 20 MG; Start 07/07/16 at 21:00 Enoxaparin Sodium (Lovenox) 40 mg DAILY SC Last administered on 07/16/16 08:59 ; Admin Dose 40 MG; Start 07/08/16 at 09:00 Amlodipine Besylate (Norvasc) 10 mg DAILY PO Last administered on 07/16/16 08: 40; Admin Dose 10 MG; Start 07/08/16 at 09:00 Atorvastatin Calcium (Lipitor) 20 mg QHS PO Last administered on 07/15/16 21: 25; Admin Dose 20 MG; Start 07/07/16 at 21:00 Hydrochlorothiazide (Hydrochlorothiazide) 25 mg DAILY PO Last administered on 08:40; Admin Dose 25 MG; Start 07/08/16 at 09:00 Losartan Potassium (Cozaar) 25 mg DAILY PO Last administered on 07/16/16 08:40 ; Admin Dose 25 MG; Start 07/08/16 at 09:00 Metoprolol Tartrate (Lopressor) 100 mg BID PO Last administered on 07/16/16 08 :41; Admin Dose 100 MG; Start 07/07/16 at 21:00 Hydralazine HCl (Apresoline) 10 mg Q6H PRN IV SBP>160; Start 07/07/16 at 19:30 Aspirin 81 mg 81 mg DAILY PO Last administered on 07/16/16 08:40; Admin Dose 81 MG; Start 07/10/16 at 09:00 Ceftriaxone Sodium (Rocephin) 50 ml @ 100 mls/hr Q24H IVPB Last administered on 07/16/16 14:43; Admin Dose 100 MLS/HR; Start 07/10/16 at 15:00 Nicotine (Nicoderm 21 Mg/ 24hr) 1 patch DAILY TRANSDERM Last administered on 08:39; Admin Dose 1 PATCH; Start 07/12/16 at 11:00 Marcelo Hurst DO Jul 16, 2016 19:31
[2016-07-16] MEDS: ATORVASTATIN 20 MG TAB PO SCH (20:22)
[2016-07-16 21:03] VITALS: BP 124/76; RESP 19
[2016-07-17] MEDS: HYDROCODONE/APAP (5/325) TAB PO PRN ×3 (00:49→20:48)
[2016-07-17] MEDS: morphine 2 MG INJ IV PRN ×4 (07:33→23:29)
[2016-07-17 08:06] VITALS: BP 123/67; RESP 16
[2016-07-17] MEDS: NICOTINE (21 MG/24 HR) PATCH TRANSDERM SCH (08:20)
[2016-07-17] MEDS: HYDROCHLOROTHIAZIDE 25 MG TAB PO SCH (08:21)
[2016-07-17] MEDS: ASPIRIN (EC) 81 MG TAB PO SCH (08:21)
[2016-07-17] MEDS: FAMOTIDINE 20 MG TAB PO SCH ×2 (08:21→20:44)
[2016-07-17] MEDS: METOPROLOL 100 MG TAB PO SCH ×2 (08:22→20:47)
[2016-07-17] MEDS: AMLODIPINE 10 MG TAB PO SCH (08:22)
[2016-07-17] MEDS: LOSARTAN 25 MG TAB PO SCH (08:22)
[2016-07-17] MEDS: ENOXAPARIN 40 MG/0.4 ML SYG SC SCH (08:27)
--- NOTE | 2016-07-17 13:39 | CONS ---
Date/Time of Note Date/Time of Note DATE: 07/17/16 TIME: 13:39 Consult Date/Type/Reason Admit Date/Time Jul 07, 2016 at 17:26 Type of Consultation: ID Subjective no events, alert, feels good, no fevers, nad Objective Vital Signs Date Time Temp Pulse Resp B/P Pulse Ox O2 Delivery O2 Flow Rate FiO2 07/17/16 08:06 97.9 87 16 123/67 95 Intake and Output 07/16/16 07/16/16 07/17/16 15:00 23:00 07:00 Intake Total 530 ml 600 ml Output Total 1200 ml Balance 530 ml -600 ml Results/Medications Result Diagram: 07/16/1652407/16/16524 Medications Current Medications Ondansetron HCl (Zofran Inj) 4 mg Q6H PRN IV NAUSEA AND/OR VOMITING; Start 07/07 at 19:00 Acetaminophen (Tylenol Tab) 650 mg Q6H PRN PO PAIN LEVEL 1-3 OR FEVER; Start at 19:00 Acetaminophen/ Hydrocodone Bitart ([place] (5/325)) 1 tab Q6H PRN PO MODERATE PAIN LEVEL 4-6 Last administered on 07/17/16 11:01; Admin Dose 1 TAB; Start 07/07/16 at 19:00 Morphine Sulfate (morphine) 2 mg Q4H PRN IV SEVERE PAIN LEVEL 7-10 Last administered on 07/17/16 07:33; Admin Dose 2 MG; Start 07/07/16 at 19:00 Magnesium Hydroxide (Milk Of Mag) 30 ml DAILY PRN PO CONSTIPATION; Start at 19:00 Bisacodyl (Dulcolax) 5 mg DAILY PRN PO CONSTIPATION; Start 07/07/16 at 19:00 Zolpidem Tartrate (Ambien) 5 mg QHS PRN PO SLEEP; Start 07/07/16 at 19:00 Famotidine (Pepcid) 20 mg Q12 PO Last administered on 07/17/16 08:21; Admin Dose 20 MG; Start 07/07/16 at 21:00 Enoxaparin Sodium (Lovenox) 40 mg DAILY SC Last administered on 07/17/16 08:27 ; Admin Dose 40 MG; Start 07/08/16 at 09:00 Amlodipine Besylate (Norvasc) 10 mg DAILY PO Last administered on 07/17/16 08: 22; Admin Dose 10 MG; Start 07/08/16 at 09:00 Atorvastatin Calcium (Lipitor) 20 mg QHS PO Last administered on 07/16/16 20: 22; Admin Dose 20 MG; Start 07/07/16 at 21:00 Hydrochlorothiazide (Hydrochlorothiazide) 25 mg DAILY PO Last administered on 08:21; Admin Dose 25 MG; Start 07/08/16 at 09:00 Losartan Potassium (Cozaar) 25 mg DAILY PO Last administered on 07/17/16 08:22 ; Admin Dose 25 MG; Start 07/08/16 at 09:00 Metoprolol Tartrate (Lopressor) 100 mg BID PO Last administered on 07/17/16 08 :22; Admin Dose 100 MG; Start 07/07/16 at 21:00 Hydralazine HCl (Apresoline) 10 mg Q6H PRN IV SBP>160; Start 07/07/16 at 19:30 Aspirin 81 mg 81 mg DAILY PO Last administered on 07/17/16 08:21; Admin Dose 81 MG; Start 07/10/16 at 09:00 Ceftriaxone Sodium (Rocephin) 50 ml @ 100 mls/hr Q24H IVPB Last administered on 07/16/16 14:43; Admin Dose 100 MLS/HR; Start 07/10/16 at 15:00 Nicotine (Nicoderm 21 Mg/ 24hr) 1 patch DAILY TRANSDERM Last administered on 08:20; Admin Dose 1 PATCH; Start 07/12/16 at 11:00 Assessment/Plan Chief Complaint/Hosp Course MICROBIOLOGY: Right foot wound drainage grew RONALD. ANTIMICROBIALS: Rocephin. PHYSICAL EXAMINATION: GENERAL: Fragile, elderly woman who is alert, in no distress. HEENT: Head atraumatic, normocephalic. Sclerae anicteric. Buccal mucosa dry. NECK: Supple, trachea midline. CHEST: Rise symmetrical. Breath sounds clear. HEART: S1, S2. ABDOMEN: Soft. Bowel tones present. EXTREMITIES: With right foot erythema, necrotic toe and also the toe is cool to touch. ASSESSMENT: 1. Right foot cellulitis with gangrenous toe 2 to #2. 2. Severe peripheral arterial disease. 3. Dyslipidemia. 4. Hypertension. PLAN: Remains stable, continue abx, pending fem-fem bypass grafting per vascular rec-s [facility] staff Problems: PENNY BORREGO NP Jul 17, 2016 13:39
[2016-07-17] MEDS: CEFTRIAXONE 1 GM/50 ML (PMX) 50 ML IVPB SCH (13:53)
--- NOTE | 2016-07-17 14:20 | PN ---
Date/Time of Note Date/Time of Note DATE: 07/17/16 TIME: 14:19 Assessment/Plan VTE Prophylaxis VTE Prophylaxis Intervention: LMWH Lines/Catheters IV [facility]from [facility] Saline Lock Urinary Cath still in place: No Assessment/Plan Chief Complaint/Hosp Course 1. Right foot cellulitis 2/2 PVD The patient was seen and evaluated by Podiatry plan is that once circulation restored will require amputation of toes. The patient will be provided with adequate pain control. The patient will be maintained on appropriate antibiotics. Wound culture positive for staph aureus. 2. Essential hypertension. Continue routine antihypertensives. Continue p.r.n. antihypertensives for any systolic blood pressure readings greater than 160 mmHg. 3. Dyslipidemia. Continue statins. 4. Peripheral vascular disease status post vascular intervention -Plan is for femoral bypass surgery, cardiology consultation for preop clearance appreciated, Nuclear Stress test negative and no further interventions per Cards -continue antiplatelet therapy -The patient being followed by vascular surgery 5. Nicotine use. Will provide the patient with a nicotine patch. Will advise cessation. 6. Fluids, electrolytes, and nutrition. Low cholesterol diet. 7. DVT prophylaxis. Subcutaneous Lovenox. 8. Gastrointestinal prophylaxis. Histamine 2 receptor blockers. Problems: Subjective 24 Hr Interval Summary Constitutional: no complaints Exam/Review of Systems Vital Signs Vitals Vital Signs Date Time Temp Pulse Resp B/P Pulse Ox O2 Delivery O2 Flow Rate FiO2 07/17/16 08:06 97.9 87 16 123/67 95 Intake and Output 07/16/16 07/16/16 07/17/16 15:00 23:00 07:00 Intake Total 530 ml 600 ml Output Total 1200 ml Balance 530 ml -600 ml Exam Constitutional: alert Respiratory: clear to auscultation Cardiovascular: regular rate and rhythm Gastrointestinal: soft, No distended Musculoskeletal: No nl extremities to inspection Results Result Diagram: 07/16/1652407/16/16524 Medications Medications Current Medications Ondansetron HCl (Zofran Inj) 4 mg Q6H PRN IV NAUSEA AND/OR VOMITING; Start 07/07 at 19:00 Acetaminophen (Tylenol Tab) 650 mg Q6H PRN PO PAIN LEVEL 1-3 OR FEVER; Start at 19:00 Acetaminophen/ Hydrocodone Bitart ([place] (5/325)) 1 tab Q6H PRN PO MODERATE PAIN LEVEL 4-6 Last administered on 07/17/16 11:01; Admin Dose 1 TAB; Start 07/07/16 at 19:00 Morphine Sulfate (morphine) 2 mg Q4H PRN IV SEVERE PAIN LEVEL 7-10 Last administered on 07/17/16 14:13; Admin Dose 2 MG; Start 07/07/16 at 19:00 Magnesium Hydroxide (Milk Of Mag) 30 ml DAILY PRN PO CONSTIPATION; Start at 19:00 Bisacodyl (Dulcolax) 5 mg DAILY PRN PO CONSTIPATION; Start 07/07/16 at 19:00 Zolpidem Tartrate (Ambien) 5 mg QHS PRN PO SLEEP; Start 07/07/16 at 19:00 Famotidine (Pepcid) 20 mg Q12 PO Last administered on 07/17/16 08:21; Admin Dose 20 MG; Start 07/07/16 at 21:00 Enoxaparin Sodium (Lovenox) 40 mg DAILY SC Last administered on 07/17/16 08:27 ; Admin Dose 40 MG; Start 07/08/16 at 09:00 Amlodipine Besylate (Norvasc) 10 mg DAILY PO Last administered on 07/17/16 08: 22; Admin Dose 10 MG; Start 07/08/16 at 09:00 Atorvastatin Calcium (Lipitor) 20 mg QHS PO Last administered on 07/16/16 20: 22; Admin Dose 20 MG; Start 07/07/16 at 21:00 Hydrochlorothiazide (Hydrochlorothiazide) 25 mg DAILY PO Last administered on 08:21; Admin Dose 25 MG; Start 07/08/16 at 09:00 Losartan Potassium (Cozaar) 25 mg DAILY PO Last administered on 07/17/16 08:22 ; Admin Dose 25 MG; Start 07/08/16 at 09:00 Metoprolol Tartrate (Lopressor) 100 mg BID PO Last administered on 07/17/16 08 :22; Admin Dose 100 MG; Start 07/07/16 at 21:00 Hydralazine HCl (Apresoline) 10 mg Q6H PRN IV SBP>160; Start 07/07/16 at 19:30 Aspirin 81 mg 81 mg DAILY PO Last administered on 07/17/16 08:21; Admin Dose 81 MG; Start 07/10/16 at 09:00 Ceftriaxone Sodium (Rocephin) 50 ml @ 100 mls/hr Q24H IVPB Last administered on 07/17/16 13:53; Admin Dose 100 MLS/HR; Start 07/10/16 at 15:00 Nicotine (Nicoderm 21 Mg/ 24hr) 1 patch DAILY TRANSDERM Last administered on 08:20; Admin Dose 1 PATCH; Start 07/12/16 at 11:00 LAN VILLARREAL Jul 17, 2016 14:20
[2016-07-17 19:29] VITALS: BP 99/56; RESP 14
[2016-07-17] MEDS: ATORVASTATIN 20 MG TAB PO SCH (20:44)
[2016-07-18] VITALS (11 sets, daily range): BP systolic 110–161; BP diastolic 52–82; PULSE 63–82; RESP 13–20
[2016-07-18] MEDS: morphine 2 MG INJ IV PRN ×3 (06:07→14:58)
[2016-07-18] MEDS: LOSARTAN 25 MG TAB PO SCH (08:53)
[2016-07-18] MEDS: ASPIRIN (EC) 81 MG TAB PO SCH (08:53)
[2016-07-18] MEDS: FAMOTIDINE 20 MG TAB PO SCH ×2 (08:54→22:00)
[2016-07-18] MEDS: HYDROCHLOROTHIAZIDE 25 MG TAB PO SCH (08:54)
[2016-07-18] MEDS: AMLODIPINE 10 MG TAB PO SCH (08:54)
[2016-07-18] MEDS: METOPROLOL 100 MG TAB PO SCH ×2 (08:54→22:00)
[2016-07-18] MEDS: ENOXAPARIN 40 MG/0.4 ML SYG SC SCH (08:54)
[2016-07-18] MEDS: NICOTINE (21 MG/24 HR) PATCH TRANSDERM SCH (08:57)
--- NOTE | 2016-07-18 13:12 | PN ---
DATE: 07/18/2016 SUBJECTIVE: No changes overnight. No fevers. The patient is alert, looks comfortable, eating lunc h. She is on Rocephin. PHYSICAL EXAMINATION: GENERAL: Well-developed, well-nourished elderly woman who is alert, in no distress. HEENT: Head atraumatic, normocephalic. Sclerae anicteric. Buccal mucosa pink. NECK: Supple, trachea midline. CHEST: Rise symmetrical. Breath sounds clear. HEART: S1, S2. ABDOMEN: Soft, bowel tones present. EXTREMITIES: Right foot dressing intact. ASSESSMENT: 1. Right foot cellulitis with gangrenous toe. 2. Severe peripheral arterial disease. 3. Status post systemic inflammatory response syndrome. 4. Hypertension. 5. Dyslipidemia. PLAN: The patient remains stable being followed by multiple consultants, pending revascularization surgery. Dictated By: PENNY BORREGO [employer] CONSULTANT for [employer] ARAGON/NTS Conf#: [id number] DID#: [id number]
[2016-07-18] MEDS: CEFTRIAXONE 1 GM/50 ML (PMX) 50 ML IVPB SCH (14:54)
[2016-07-18] MEDS ORDERED: POLYMYXIN/BACITRACIN 1L IRRIG ONE (16:08)
[2016-07-18] MEDS ORDERED: VANCOMYCIN 1 GM (PMX) 250 ML ONE (16:08)
[2016-07-18] MEDS ORDERED: GELATIN SIZE 100 SPONGE ONE (16:11)
[2016-07-18] MEDS ORDERED: HEPARIN 1000 UNITS/ML 10 ML INJ ONE ×2 (16:11→17:54)
--- NOTE | 2016-07-18 16:13 | PN ---
Date/Time of Note Date/Time of Note DATE: 07/18/16 TIME: 16:11 Assessment/Plan VTE Prophylaxis VTE Prophylaxis Intervention: LMWH Lines/Catheters IV [facility] [facility] Urinary Cath still in place: No Assessment/Plan Chief Complaint/Hosp Course 1. Right foot cellulitis with gangrene 2/2 PVD -Podiatry plan is that once circulation restored will require amputation of toes. The patient will be provided with adequate pain control. The patient will be maintained on appropriate antibiotics. Wound culture positive for staph aureus. 2. Essential hypertension. Continue routine antihypertensives. Continue p.r.n. antihypertensives for any systolic blood pressure readings greater than 160 mmHg. 3. Dyslipidemia. Continue statins. 4. Peripheral vascular disease status post vascular intervention -Plan is for femoral bypass surgery today, cardiology consultation for preop clearance appreciated, Nuclear Stress test negative and no further interventions per Cards -continue antiplatelet therapy 5. Nicotine use. Will provide the patient with a nicotine patch. Will advise cessation. 6. Fluids, electrolytes, and nutrition. Low cholesterol diet. 7. DVT prophylaxis. Subcutaneous Lovenox. 8. Gastrointestinal prophylaxis. Histamine 2 receptor blockers. Problems: Subjective 24 Hr Interval Summary Constitutional: no complaints Exam/Review of Systems Vital Signs Vitals Vital Signs Date Time Temp Pulse Resp B/P Pulse Ox O2 Delivery O2 Flow Rate FiO2 07/18/16 08:05 97.6 75 18 110/72 95 Intake and Output 07/17/16 07/17/16 07/18/16 15:00 23:00 07:00 Intake Total 530 ml Output Total 300 ml Balance 230 ml Exam Constitutional: alert, oriented Respiratory: clear to auscultation Cardiovascular: regular rate and rhythm Gastrointestinal: soft, No distended Musculoskeletal: No nl extremities to inspection Results Result Diagram: 07/16/1652407/16/16524 Medications Medications Current Medications Ondansetron HCl (Zofran Inj) 4 mg Q6H PRN IV NAUSEA AND/OR VOMITING; Start 07/07 at 19:00 Acetaminophen (Tylenol Tab) 650 mg Q6H PRN PO PAIN LEVEL 1-3 OR FEVER; Start at 19:00 Acetaminophen/ Hydrocodone Bitart ([place] (5/325)) 1 tab Q6H PRN PO MODERATE PAIN LEVEL 4-6 Last administered on 07/17/16 20:48; Admin Dose 1 TAB; Start 07/07/16 at 19:00 Morphine Sulfate (morphine) 2 mg Q4H PRN IV SEVERE PAIN LEVEL 7-10 Last administered on 07/18/16 14:58; Admin Dose 2 MG; Start 07/07/16 at 19:00 Magnesium Hydroxide (Milk Of Mag) 30 ml DAILY PRN PO CONSTIPATION; Start at 19:00 Bisacodyl (Dulcolax) 5 mg DAILY PRN PO CONSTIPATION; Start 07/07/16 at 19:00 Zolpidem Tartrate (Ambien) 5 mg QHS PRN PO SLEEP; Start 07/07/16 at 19:00 Famotidine (Pepcid) 20 mg Q12 PO Last administered on 07/17/16 20:44; Admin Dose 20 MG; Start 07/07/16 at 21:00 Enoxaparin Sodium (Lovenox) 40 mg DAILY SC Last administered on 07/17/16 08:27 ; Admin Dose 40 MG; Start 07/08/16 at 09:00 Amlodipine Besylate (Norvasc) 10 mg DAILY PO Last administered on 07/17/16 08: 22; Admin Dose 10 MG; Start 07/08/16 at 09:00 Atorvastatin Calcium (Lipitor) 20 mg QHS PO Last administered on 07/17/16 20: 44; Admin Dose 20 MG; Start 07/07/16 at 21:00 Hydrochlorothiazide (Hydrochlorothiazide) 25 mg DAILY PO Last administered on 08:21; Admin Dose 25 MG; Start 07/08/16 at 09:00 Losartan Potassium (Cozaar) 25 mg DAILY PO Last administered on 07/17/16 08:22 ; Admin Dose 25 MG; Start 07/08/16 at 09:00 Metoprolol Tartrate (Lopressor) 100 mg BID PO Last administered on 07/17/16 20 :47; Admin Dose 100 MG; Start 07/07/16 at 21:00 Hydralazine HCl (Apresoline) 10 mg Q6H PRN IV SBP>160; Start 07/07/16 at 19:30 Aspirin 81 mg 81 mg DAILY PO Last administered on 07/17/16 08:21; Admin Dose 81 MG; Start 1/12/17 at 09:00 Ceftriaxone Sodium (Rocephin) 50 ml @ 100 mls/hr Q24H IVPB Last administered on 07/18/16 14:54; Admin Dose 100 MLS/HR; Start 07/10/16 at 15:00 Nicotine (Nicoderm 21 Mg/ 24hr) 1 patch DAILY TRANSDERM Last administered on 08:57; Admin Dose 1 PATCH; Start 07/12/16 at 11:00 LAN VILLARREAL Jul 18, 2016 16:12
[2016-07-18] MEDS ORDERED: SURGIFOAM POWDER 1 GM KIT ONE ×2 (16:20→16:21)
[2016-07-18] MEDS: THROMBIN 5000 UNIT VIAL ONE ×2 (17:39→19:41)
[2016-07-18] MEDS ORDERED: FENTAnyl 50 MCG/ML VIAL IV PRN (18:00)
[2016-07-18] MEDS ORDERED: FENTAnyl 50 MCG/ML VIAL ONE ×3 (18:17→19:10)
[2016-07-18] MEDS ORDERED: ROCURONIUM 50 MG INJ ONE (18:29)
[2016-07-18] MEDS ORDERED: PROPOFOL 20 ML ONE (18:29)
[2016-07-18] MEDS ORDERED: HYDROmorphONE 2 MG/ML SYG ONE (19:19)
[2016-07-18] MEDS ORDERED: ONDANSETRON 4 MG INJ ONE (20:49)
--- NOTE | 2016-07-18 20:58 | OPPN ---
Date/Time of Note Date/Time of Note DATE: 07/18/16 TIME: 20:57 Operative/Procedure Note Pre-Operative Diagnosis PVD Post-Operative Diagnosis PVD Procedure Fem Fem Bypass grafting Surgeon: ORAL VILLANUEVA MD Implants/Grafts: Not applicable Estimated blood loss: 50 - 100 ml's Drains: Not applicable Specimens Plaque Complications: None Anesthesia type: general ORAL VILLANUEVA MD Jul 18, 2016 20:58
[2016-07-18] MEDS ORDERED: METOPROLOL 5 MG INJ ONE (20:59)
[2016-07-18] MEDS ORDERED: HYDROmorphONE 1 MG/ML SYG IV PRN ×3 (21:00)
[2016-07-18] MEDS ORDERED: ONDANSETRON 4 MG INJ IV PRN (21:00)
[2016-07-18] MEDS ORDERED: DIPHENHYDRAMINE 50 MG INJ IV PRN (21:00)
[2016-07-18] MEDS ORDERED: METOCLOPRAMIDE 10 MG INJ IV PRN (21:00)
[2016-07-18] MEDS ORDERED: hydrALAzine 20 MG INJ IV PRN (21:00)
[2016-07-18] MEDS ORDERED: MEPERIDINE 25 MG INJ IV PRN (21:00)
[2016-07-18] MEDS ORDERED: LABETALOL HCL 20MG INJ IV PRN (21:00)
[2016-07-18] MEDS: ATORVASTATIN 20 MG TAB PO SCH (22:00)
[2016-07-19] VITALS (19 sets, daily range): BP systolic 83–128; BP diastolic 45–70; PULSE 52–80; RESP 10–27
[2016-07-19] MEDS: LACTATED RINGER'S 1,000 ML IV SCH ×3 (01:40→18:49)
[2016-07-19] MEDS: morphine 2 MG INJ IV PRN ×5 (01:42→20:25)
[2016-07-19 05:57] LABS: BASOPHILS % 0.1 % (0.0-2.0); EOSINOPHILS # 0.1 10^3/ul (0.0-0.5); HEMATOCRIT 30.5 % (37.0-47.0); HEMOGLOBIN 10.5 g/dl (12.0-16.0); LYMPHOCYTES % 9.8 % (15.0-51.0); MEAN CORPUSCULAR HEMOGLOBIN 33.3 pg (29.0-33.0); MEAN CORPUSCULAR HGB CONC 34.4 g/dl (32.0-37.0); MEAN CORPUSCULAR VOLUME 96.9 fl (82.0-101.0); MEAN PLATELET VOLUME 10.1 fl (7.4-10.4); MONOCYTE # 0.7 10^3/ul (0.3-0.9); MONOCYTES % 6.8 % (0.0-11.0); NEUTROPHIL # 8.2 10^3/ul (1.6-7.5); NEUTROPHILS % 82.3 % (39.0-77.0); PLATELET COUNT 206 10^3/UL (140-440); RED BLOOD COUNT 3.15 10^6/ul (4.20-5.40); RED CELL DISTRIBUTION WIDTH 12.1 % (11.5-14.5); UNCORRECTED WBC 9.9 10^3/ul (4.8-10.8); WHITE BLOOD COUNT 9.9 10^3/ul (4.8-10.8)
[2016-07-19 06:13] LABS: POTASSIUM 3.6 mmol/L (3.5-5.1)
[2016-07-19 06:14] LABS: CONDITION 1
[2016-07-19 06:16] LABS: CREATININE 0.59 mg/dl (0.44-1.00)
[2016-07-19 06:17] LABS: CALCIUM 8.8 mg/dl (8.4-10.2); MAGNESIUM 1.6 mg/dl (1.7-2.5)
[2016-07-19] MEDS: HYDROCODONE/APAP (5/325) TAB PO PRN ×3 (09:00→23:13)
[2016-07-19] MEDS: HYDROCHLOROTHIAZIDE 25 MG TAB PO SCH (09:00)
[2016-07-19] MEDS ORDERED: MAGNESIUM SULFATE 3 GM in SOD CHLORIDE 0.9% 100 ML IVPB ONE (09:00)
[2016-07-19] MEDS: METOPROLOL 100 MG TAB PO SCH ×2 (09:01→21:22)
[2016-07-19] MEDS: ASPIRIN (EC) 81 MG TAB PO SCH (09:01)
[2016-07-19] MEDS: LOSARTAN 25 MG TAB PO SCH (09:01)
[2016-07-19] MEDS: FAMOTIDINE 20 MG TAB PO SCH ×2 (09:01→20:33)
[2016-07-19] MEDS: AMLODIPINE 10 MG TAB PO SCH (09:01)
[2016-07-19] MEDS: NICOTINE (21 MG/24 HR) PATCH TRANSDERM SCH (09:02)
[2016-07-19] MEDS: ENOXAPARIN 40 MG/0.4 ML SYG SC SCH (09:04)
--- NOTE | 2016-07-19 12:31 | PN ---
Date/Time of Note Date/Time of Note DATE: 07/19/16 TIME: 12:20 Assessment/Plan VTE Prophylaxis VTE Prophylaxis Intervention: LMWH Lines/Catheters IV Catheter Type (from Nrs): Peripheral IV Assessment/Plan Chief Complaint/Hosp Course 1. Right foot cellulitis with gangrene 2/2 PVD -Podiatry plan is that once circulation restored which is now the case s/p Bypass will require amputation of toes. The patient will be provided with adequate pain control. The patient will be maintained on appropriate antibiotics. Wound culture positive for staph aureus. 2. Essential hypertension. Continue routine antihypertensives. Continue p.r.n. antihypertensives for any systolic blood pressure readings greater than 160 mmHg. 3. Dyslipidemia. Continue statins. 4. Peripheral vascular disease status post vascular intervention -S/P femoral bypass surgery -continue antiplatelet therapy 5. Nicotine use. Will provide the patient with a nicotine patch. Will advise cessation. 6. Fluids, electrolytes, and nutrition. Low cholesterol diet. 7. DVT prophylaxis. Subcutaneous Lovenox. 8. Gastrointestinal prophylaxis. Histamine 2 receptor blockers. Problems: Subjective 24 Hr Interval Summary Constitutional: no complaints Exam/Review of Systems Vital Signs Vitals Vital Signs Date Time Temp Pulse Resp B/P Pulse Ox O2 Delivery O2 Flow Rate FiO2 07/19/16 09:00 80 19 109/65 98 2.0 07/19/16 08:00 97.4 Nasal Cannula 07/18/16 23:14 21 Intake and Output 07/18/16 07/18/16 07/19/16 15:00 23:00 07:00 Intake Total 1800 ml 600 ml Output Total 1255 ml 195 ml Balance 545 ml 405 ml Exam Constitutional: alert, oriented Respiratory: clear to auscultation Cardiovascular: regular rate and rhythm Gastrointestinal: soft, No distended Musculoskeletal: No nl extremities to inspection Results Result Diagram: 07/19/16 0505 07/19/16 0505 Results 24 hrs Laboratory Tests Test 07/19/16 05:05 Anion Gap 12 Basophils # 0.0 Basophils % 0.1 Blood Urea Nitrogen 13 Calcium Level 8.8 Carbon Dioxide Level 31 Chloride Level 98 Creatinine 0.59 Eosinophils # 0.1 Eosinophils % 1.0 Glucose Level 99 Hematocrit 30.5 L Hemoglobin 10.5 L Lymphocytes # 1.0 Lymphocytes % 9.8 L Magnesium Level 1.6 L Mean Corpuscular Hemoglobin 33.3 H Mean Corpuscular Hemoglobin Concent 34.4 Mean Corpuscular Volume 96.9 Mean Platelet Volume 10.1 Monocytes # 0.7 Monocytes % 6.8 Neutrophils # 8.2 H Neutrophils % 82.3 H Nucleated Red Blood Cells # 0.0 Nucleated Red Blood Cells % 0.0 Platelet Count 206 Potassium Level 3.6 Red Blood Count 3.15 L Red Cell Distribution Width 12.1 Sodium Level 137 White Blood Count 9.9 Medications Medications Current Medications Ondansetron HCl (Zofran Inj) 4 mg Q6H PRN IV NAUSEA AND/OR VOMITING; Start 07/07 at 19:00 Acetaminophen (Tylenol Tab) 650 mg Q6H PRN PO PAIN LEVEL 1-3 OR FEVER; Start at 19:00 Acetaminophen/ Hydrocodone Bitart ([place] (5/325)) 1 tab Q6H PRN PO MODERATE PAIN LEVEL 4-6 Last administered on 07/19/16 09:00; Admin Dose 1 TAB; Start 07/07/16 at 19:00 Morphine Sulfate (morphine) 2 mg Q4H PRN IV SEVERE PAIN LEVEL 7-10 Last administered on 07/19/16 09:51; Admin Dose 2 MG; Start 07/07/16 at 19:00 Magnesium Hydroxide (Milk Of Mag) 30 ml DAILY PRN PO CONSTIPATION; Start at 19:00 Bisacodyl (Dulcolax) 5 mg DAILY PRN PO CONSTIPATION; Start 07/07/16 at 19:00 Zolpidem Tartrate (Ambien) 5 mg QHS PRN PO SLEEP; Start 07/07/16 at 19:00 Famotidine (Pepcid) 20 mg Q12 PO Last administered on 07/19/16 09:01; Admin Dose 20 MG; Start 07/07/16 at 21:00 Enoxaparin Sodium (Lovenox) 40 mg DAILY SC Last administered on 07/19/16 09:04 ; Admin Dose 40 MG; Start 07/08/16 at 09:00 Amlodipine Besylate (Norvasc) 10 mg DAILY PO Last administered on 07/19/16 09: 01; Admin Dose 10 MG; Start 07/08/16 at 09:00 Atorvastatin Calcium (Lipitor) 20 mg QHS PO Last administered on 07/17/16 20: 44; Admin Dose 20 MG; Start 07/07/16 at 21:00 Hydrochlorothiazide (Hydrochlorothiazide) 25 mg DAILY PO Last administered on 09:00; Admin Dose 25 MG; Start 07/08/16 at 09:00 Losartan Potassium (Cozaar) 25 mg DAILY PO Last administered on 07/19/16 09:01 ; Admin Dose 25 MG; Start 07/08/16 at 09:00 Metoprolol Tartrate (Lopressor) 100 mg BID PO Last administered on 07/19/16 09 :01; Admin Dose 100 MG; Start 07/07/16 at 21:00 Hydralazine HCl (Apresoline) 10 mg Q6H PRN IV SBP>160; Start 07/07/16 at 19:30 Aspirin 81 mg 81 mg DAILY PO Last administered on 07/19/16 09:01; Admin Dose 81 MG; Start 07/10/16 at 09:00 Ceftriaxone Sodium (Rocephin) 50 ml @ 100 mls/hr Q24H IVPB Last administered on 07/18/16 14:54; Admin Dose 100 MLS/HR; Start 07/10/16 at 15:00 Nicotine 1 patch 1 patch DAILY TRANSDERM Last administered on 07/19/16 09:02; Admin Dose 1 PATCH; Start 07/12/16 at 11:00 Lactated Ringer's (Lr) 1,000 ml @ 100 mls/hr Q10H IV Last administered on 07/19 01:40; Admin Dose 100 MLS/HR; Start 07/18/16 at 22:00 LAN VILLARREAL Jul 19, 2016 12:30
[2016-07-19] MEDS: CEFTRIAXONE 1 GM/50 ML (PMX) 50 ML IVPB SCH (14:00)
--- NOTE | 2016-07-19 15:45 | PN ---
Date/Time of Note Date/Time of Note DATE: 07/19/16 TIME: 15:43 Assessment/Plan Lines/Catheters IV Catheter Type (from Nrs): Peripheral IV Assessment/Plan Chief Complaint/Hosp Course IMPRESSION: Peripheral vascular disease with gangrene of the right distal foot. SP Fem Fem bypass grafting May proceed with toe amputation Discussed with the patient and the family. All questions answered. Problems: Subjective 24 Hr Interval Summary Constitutional: improved Pain Control: mild Exam/Review of Systems Vital Signs Vitals Vital Signs Date Time Temp Pulse Resp B/P Pulse Ox O2 Delivery O2 Flow Rate FiO2 07/19/16 15:00 60 16 83/45 100 Nasal Cannula 2.0 07/19/16 12:00 97.6 07/18/16 23:14 21 Intake and Output 07/18/16 07/18/16 07/19/16 15:00 23:00 07:00 Intake Total 1800 ml 600 ml Output Total 1255 ml 195 ml Balance 545 ml 405 ml Exam ENMT: mucosa pink and moist, nl external ears & nose, nl lips & teeth, nl nasal mucosa & septum Neck: non-tender, supple Respiratory: clear to auscultation, normal air movement Cardiovascular: nl pulses, regular rate and rhythm Results Result Diagram: 07/19/16 0505 07/19/16 0505 ORAL VILLANUEVA MD Jul 19, 2016 15:45
--- NOTE | 2016-07-19 17:55 | CONS ---
Date/Time of Note Date/Time of Note DATE: 07/19/16 TIME: 17:54 Consult Date/Type/Reason Admit Date/Time Jul 07, 2016 at 17:26 Type of Consultation: ID Subjective no events, awake, looks comfortable, no fevers Objective Vital Signs Date Time Temp Pulse Resp B/P Pulse Ox O2 Delivery O2 Flow Rate FiO2 07/19/16 16:21 63 07/19/16 15:00 16 83/45 100 Nasal Cannula 2.0 07/19/16 12:00 97.6 07/18/16 23:14 21 Intake and Output 07/18/16 07/18/16 07/19/16 15:00 23:00 07:00 Intake Total 1800 ml 600 ml Output Total 1255 ml 195 ml Balance 545 ml 405 ml Results/Medications Result Diagram: 07/19/16 0505 07/19/16 0505 Results 24 hrs Laboratory Tests Test 07/19/16 05:05 Anion Gap 12 Basophils # 0.0 Basophils % 0.1 Blood Urea Nitrogen 13 Calcium Level 8.8 Carbon Dioxide Level 31 Chloride Level 98 Creatinine 0.59 Eosinophils # 0.1 Eosinophils % 1.0 Glucose Level 99 Hematocrit 30.5 L Hemoglobin 10.5 L Lymphocytes # 1.0 Lymphocytes % 9.8 L Magnesium Level 1.6 L Mean Corpuscular Hemoglobin 33.3 H Mean Corpuscular Hemoglobin Concent 34.4 Mean Corpuscular Volume 96.9 Mean Platelet Volume 10.1 Monocytes # 0.7 Monocytes % 6.8 Neutrophils # 8.2 H Neutrophils % 82.3 H Nucleated Red Blood Cells # 0.0 Nucleated Red Blood Cells % 0.0 Platelet Count 206 Potassium Level 3.6 Red Blood Count 3.15 L Red Cell Distribution Width 12.1 Sodium Level 137 White Blood Count 9.9 Medications Current Medications Ondansetron HCl (Zofran Inj) 4 mg Q6H PRN IV NAUSEA AND/OR VOMITING; Start 07/07 at 19:00 Acetaminophen (Tylenol Tab) 650 mg Q6H PRN PO PAIN LEVEL 1-3 OR FEVER; Start at 19:00 Acetaminophen/ Hydrocodone Bitart ([place] (5/325)) 1 tab Q6H PRN PO MODERATE PAIN LEVEL 4-6 Last administered on 07/19/16t 17:20; Admin Dose 1 TAB; Start 07/07/16 at 19:00 Morphine Sulfate (morphine) 2 mg Q4H PRN IV SEVERE PAIN LEVEL 7-10 Last administered on 07/19/16 13:56; Admin Dose 2 MG; Start 07/07/16 at 19:00 Magnesium Hydroxide (Milk Of Mag) 30 ml DAILY PRN PO CONSTIPATION; Start at 19:00 Bisacodyl (Dulcolax) 5 mg DAILY PRN PO CONSTIPATION; Start 07/07/16 at 19:00 Zolpidem Tartrate (Ambien) 5 mg QHS PRN PO SLEEP; Start 07/07/16 at 19:00 Famotidine (Pepcid) 20 mg Q12 PO Last administered on 07/19/16 09:01; Admin Dose 20 MG; Start 07/07/16 at 21:00 Enoxaparin Sodium (Lovenox) 40 mg DAILY SC Last administered on 07/19/16 09:04 ; Admin Dose 40 MG; Start 07/08/16 at 09:00 Amlodipine Besylate (Norvasc) 10 mg DAILY PO Last administered on 07/19/16 09: 01; Admin Dose 10 MG; Start 07/08/16 at 09:00 Atorvastatin Calcium (Lipitor) 20 mg QHS PO Last administered on 07/17/16 20: 44; Admin Dose 20 MG; Start 07/07/16 at 21:00 Hydrochlorothiazide (Hydrochlorothiazide) 25 mg DAILY PO Last administered on 09:00; Admin Dose 25 MG; Start 07/08/16 at 09:00 Losartan Potassium (Cozaar) 25 mg DAILY PO Last administered on 07/19/16 09:01 ; Admin Dose 25 MG; Start 07/08/16 at 09:00 Metoprolol Tartrate (Lopressor) 100 mg BID PO Last administered on 07/19/16 09 :01; Admin Dose 100 MG; Start 07/07/16 at 21:00 Hydralazine HCl (Apresoline) 10 mg Q6H PRN IV SBP>160; Start 07/07/16 at 19:30 Aspirin 81 mg 81 mg DAILY PO Last administered on 07/19/16 09:01; Admin Dose 81 MG; Start 07/10/16 at 09:00 Ceftriaxone Sodium (Rocephin) 50 ml @ 100 mls/hr Q24H IVPB Last administered on 07/19/16 14:00; Admin Dose 100 MLS/HR; Start 07/10/16 at 15:00 Nicotine 1 patch 1 patch DAILY TRANSDERM Last administered on 07/19/16 09:02; Admin Dose 1 PATCH; Start 07/12/16 at 11:00 Lactated Ringer's (Lr) 1,000 ml @ 100 mls/hr Q10H IV Last administered on 07/19 01:40; Admin Dose 100 MLS/HR; Start 07/18/16 at 22:00 Assessment/Plan Chief Complaint/Hosp Course MICROBIOLOGY: Right foot wound drainage grew RONALD. ANTIMICROBIALS: Rocephin. PHYSICAL EXAMINATION: GENERAL: Fragile, elderly woman who is alert, in no distress. HEENT: Head atraumatic, normocephalic. Sclerae anicteric. Buccal mucosa dry. NECK: Supple, trachea midline. CHEST: Rise symmetrical. Breath sounds clear. HEART: S1, S2. ABDOMEN: Soft. Bowel tones present. EXTREMITIES: With right foot erythema, necrotic toe and also the toe is cool to touch. ASSESSMENT: 1. Right foot cellulitis with gangrenous toe 2 to #2. 2. Severe peripheral arterial disease, s/p fem-fem bypass graft==> POD#1. 3. Dyslipidemia. 4. Hypertension. PLAN: Remains stable, continue abx, vascular/podiatry rec-s, pending toe amputation DW staff Problems: PENNY BORREGO NP Jul 19, 2016 17:55
[2016-07-19] MEDS: ATORVASTATIN 20 MG TAB PO SCH (20:33)
[2016-07-20] VITALS (15 sets, daily range): BP systolic 97–124; BP diastolic 51–60; PULSE 69–156; RESP 16–22
--- NOTE | 2016-07-20 04:48 | CONS ---
DATE OF ADMISSION: 07/07/2016 DATE OF CONSULTATION: 07/19/2016 SUBJECTIVE FINDINGS: The patient being followed for right foot cellulitis and gangrene of toes. Sh e is status post fem-fem bypass graft. The patient denies any chest pain, shortness of breath. The re is decreased pain to the right lower extremity. OBJECTIVE FINDINGS: VITAL SIGNS: Temperature 97.6, pulse is 52, respiratory rate 15, blood pressure 94/49, pulse ox is 100 with room air. GENERAL: The patient awake, alert, and comfortable. Regular respiration. EXTREMITIES: The patient has a warm foot. 2+ DP, PT pulse. There is improved color to the hallux. Gangrene of the third and fourth toe persist. Improved color surrounding the gangrenous toes. Th e patient has persistent erythema to the dorsal aspect. LABORATORIES: WBC 9.9, hemoglobin 10.5, hematocrit 30.5, platelets 206. Sodium 137, potassium 3.6, chloride is 98, CO2 31, BUN 13, creatinine 0.59, glucose is 99. ASSESSMENT: 1. Right foot gangrene. 2. Peripheral arterial disease status post fem-fem bypass. 3. Cellulitis. 4. Hypertension. 5. Hyperlipidemia. PLAN: The patient is seen and evaluated with improvement vascular status. Can perform surgery at a mutually agreeable time. Discussed planned procedure, risks, benefits, potential complications. T he patient is amenable. We will schedule planned procedure for amputation of toes, right foot, with application of a wound VAC. Dictated By: CARLOS HAQUE/ASAEL Conf#: [id number] DID#: [id number]
[2016-07-20] MEDS: LACTATED RINGER'S 1,000 ML IV SCH ×2 (04:58→15:00)
[2016-07-20] MEDS: morphine 2 MG INJ IV PRN ×5 (06:18→23:33)
[2016-07-20 07:15] LABS: BASOPHILS % 0.5 % (0.0-2.0); EOSINOPHILS # 0.2 10^3/ul (0.0-0.5); EOSINOPHILS % 1.8 % (0.0-7.0); HEMATOCRIT 26.8 % (37.0-47.0); HEMOGLOBIN 9.2 g/dl (12.0-16.0); LYMPHOCYTES # 1.5 10^3/ul (0.8-2.9); LYMPHOCYTES % 18.2 % (15.0-51.0); MEAN CORPUSCULAR HEMOGLOBIN 33.2 pg (29.0-33.0); MEAN CORPUSCULAR HGB CONC 34.1 g/dl (32.0-37.0); MEAN CORPUSCULAR VOLUME 97.4 fl (82.0-101.0); MEAN PLATELET VOLUME 10.5 fl (7.4-10.4); MONOCYTE # 0.8 10^3/ul (0.3-0.9); MONOCYTES % 9.4 % (0.0-11.0); NEUTROPHIL # 5.8 10^3/ul (1.6-7.5); NEUTROPHILS % 70.1 % (39.0-77.0); PLATELET COUNT 173 10^3/UL (140-440); RED BLOOD COUNT 2.76 10^6/ul (4.20-5.40); RED CELL DISTRIBUTION WIDTH 12.7 % (11.5-14.5); UNCORRECTED WBC 8.3 10^3/ul (4.8-10.8); WHITE BLOOD COUNT 8.3 10^3/ul (4.8-10.8)
[2016-07-20 07:17] LABS: POTASSIUM 3.5 mmol/L (3.5-5.1)
[2016-07-20 07:20] LABS: CREATININE 0.71 mg/dl (0.44-1.00)
[2016-07-20 07:21] LABS: CALCIUM 8.6 mg/dl (8.4-10.2); MAGNESIUM 2.1 mg/dl (1.7-2.5)
[2016-07-20 07:22] LABS: CONDITION 1
[2016-07-20] MEDS: HYDROCHLOROTHIAZIDE 25 MG TAB PO SCH (11:11)
[2016-07-20] MEDS: ENOXAPARIN 40 MG/0.4 ML SYG SC SCH (11:11)
[2016-07-20] MEDS: NICOTINE (21 MG/24 HR) PATCH TRANSDERM SCH (11:11)
[2016-07-20] MEDS: ASPIRIN (EC) 81 MG TAB PO SCH (11:11)
[2016-07-20] MEDS: AMLODIPINE 10 MG TAB PO SCH (11:11)
[2016-07-20] MEDS: FAMOTIDINE 20 MG TAB PO SCH ×2 (11:11→20:24)
[2016-07-20] MEDS: LOSARTAN 25 MG TAB PO SCH (11:11)
[2016-07-20] MEDS: METOPROLOL 100 MG TAB PO SCH ×2 (11:11→20:24)
--- NOTE | 2016-07-20 12:15 | PN ---
Date/Time of Note Date/Time of Note DATE: 07/20/16 TIME: 12:14 Assessment/Plan Lines/Catheters IV Catheter Type (from Nrs): Peripheral IV Assessment/Plan Chief Complaint/Hosp Course IMPRESSION: Peripheral vascular disease with gangrene of the right distal foot. SP Fem Fem bypass grafting May proceed with toe amputation Discussed with the patient and the family. All questions answered. Problems: Subjective 24 Hr Interval Summary Constitutional: improved Pain Control: mild Exam/Review of Systems Vital Signs Vitals Vital Signs Date Time Temp Pulse Resp B/P Pulse Ox O2 Delivery O2 Flow Rate FiO2 07/20/16 11:33 98.3 80 17 104/58 90 07/20/16 10:00 Nasal Cannula 2.0 07/18/16 23:14 21 Intake and Output 07/19/16 07/19/16 07/20/16 15:00 23:00 07:00 Intake Total 480 ml 240 ml 1360 ml Output Total 800 ml 1400 ml Balance 480 ml -560 ml -40 ml Exam ENMT: mucosa pink and moist, nl external ears & nose, nl lips & teeth, nl nasal mucosa & septum Neck: non-tender, supple Respiratory: clear to auscultation, normal air movement Cardiovascular: nl pulses, regular rate and rhythm Results Result Diagram: 07/20/16 0545 07/20/16 0545 ORAL VILLANUEVA MD Jul 20, 2016 12:15
[2016-07-20] MEDS: CEFTRIAXONE 1 GM/50 ML (PMX) 50 ML IVPB SCH (15:19)
--- NOTE | 2016-07-20 18:36 | PN ---
Date/Time of Note Date/Time of Note DATE: 07/20/16 TIME: 18:29 Assessment/Plan VTE Prophylaxis VTE Prophylaxis Intervention: LMWH Lines/Catheters IV Catheter Type (from Nrs): Peripheral IV Assessment/Plan Chief Complaint/Hosp Course 1. Right foot cellulitis with gangrene 2/2 PVD -Podiatry plan is for amputation of digits tomorrow now that circulation restored -pain control and Abx -Wound culture positive for staph aureus 2. Essential hypertension. Continue routine antihypertensives. Continue p.r.n. antihypertensives for any systolic blood pressure readings greater than 160 mmHg. 3. Dyslipidemia. Continue statins. 4. Peripheral vascular disease status post vascular intervention -S/P femoral bypass surgery -continue antiplatelet therapy 5. Nicotine use. Will provide the patient with a nicotine patch. Will advise cessation. 6. Fluids, electrolytes, and nutrition. Low cholesterol diet. 7. DVT prophylaxis. Subcutaneous Lovenox. 8. Gastrointestinal prophylaxis. Histamine 2 receptor blockers. Problems: Subjective 24 Hr Interval Summary Constitutional: no complaints Exam/Review of Systems Vital Signs Vitals Vital Signs Date Time Temp Pulse Resp B/P Pulse Ox O2 Delivery O2 Flow Rate FiO2 07/20/16 16:30 77 07/20/16 15:41 97.9 17 104/52 95 07/20/16 10:00 Nasal Cannula 2.0 07/18/16 23:14 21 Intake and Output 07/19/16 07/19/16 07/20/16 14:59 22:59 06:59 Intake Total 480 ml 240 ml 1360 ml Output Total 800 ml 1400 ml Balance 480 ml -560 ml -40 ml Exam Constitutional: alert, oriented Respiratory: clear to auscultation Cardiovascular: regular rate and rhythm Gastrointestinal: soft, No distended Musculoskeletal: No nl extremities to inspection Results Result Diagram: 07/20/16 0545 07/20/16 0545 Results 24 hrs Laboratory Tests Test 07/20/16 05:45 Anion Gap 11 Basophils # 0.0 Basophils % 0.5 Blood Morphology Comment Blood Urea Nitrogen 10 Calcium Level 8.6 Carbon Dioxide Level 33 H Chloride Level 99 Creatinine 0.71 Eosinophils # 0.2 Eosinophils % 1.8 Glucose Level 83 Hematocrit 26.8 L Hemoglobin 9.2 L Lymphocytes # 1.5 Lymphocytes % 18.2 Magnesium Level 2.1 Mean Corpuscular Hemoglobin 33.2 H Mean Corpuscular Hemoglobin Concent 34.1 Mean Corpuscular Volume 97.4 Mean Platelet Volume 10.5 H Monocytes # 0.8 Monocytes % 9.4 Neutrophils # 5.8 Neutrophils % 70.1 Nucleated Red Blood Cells # 0.0 Nucleated Red Blood Cells % 0.0 Platelet Count 173 Potassium Level 3.5 Red Blood Count 2.76 L Red Cell Distribution Width 12.7 Sodium Level 139 White Blood Count 8.3 Medications Medications Current Medications Ondansetron HCl (Zofran Inj) 4 mg Q6H PRN IV NAUSEA AND/OR VOMITING; Start 07/07 at 19:00 Acetaminophen (Tylenol Tab) 650 mg Q6H PRN PO PAIN LEVEL 1-3 OR FEVER Last administered on 07/20/16 01:07; Admin Dose 650 MG; Start 07/07/16 at 19:00 Acetaminophen/ Hydrocodone Bitart ([place] (5/325)) 1 tab Q6H PRN PO MODERATE PAIN LEVEL 4-6 Last administered on 07/19/16 23:13; Admin Dose 1 TAB; Start 07/07/16 at 19:00 Morphine Sulfate (morphine) 2 mg Q4H PRN IV SEVERE PAIN LEVEL 7-10 Last administered on 07/20/16 15:20; Admin Dose 2 MG; Start 07/07/16 at 19:00 Magnesium Hydroxide (Milk Of Mag) 30 ml DAILY PRN PO CONSTIPATION; Start at 19:00 Bisacodyl (Dulcolax) 5 mg DAILY PRN PO CONSTIPATION; Start 07/07/16 at 19:00 Zolpidem Tartrate (Ambien) 5 mg QHS PRN PO SLEEP; Start 07/07/16 at 19:00 Famotidine (Pepcid) 20 mg Q12 PO Last administered on 07/20/16 11:11; Admin Dose 20 MG; Start 07/07/16 at 21:00 Enoxaparin Sodium (Lovenox) 40 mg DAILY SC Last administered on 07/20/16 11:11 ; Admin Dose 40 MG; Start 07/08/16 at 09:00 Amlodipine Besylate (Norvasc) 10 mg DAILY PO Last administered on 07/19/16 09: 01; Admin Dose 10 MG; Start 07/08/16 at 09:00 Atorvastatin Calcium (Lipitor) 20 mg QHS PO Last administered on 07/19/16 20: 33; Admin Dose 20 MG; Start 07/07/16 at 21:00 Hydrochlorothiazide (Hydrochlorothiazide) 25 mg DAILY PO Last administered on 09:00; Admin Dose 25 MG; Start 07/08/16 at 09:00 Losartan Potassium (Cozaar) 25 mg DAILY PO Last administered on 07/19/16 09:01 ; Admin Dose 25 MG; Start 07/08/16 at 09:00 Metoprolol Tartrate (Lopressor) 100 mg BID PO Last administered on 07/19/16 21 :22; Admin Dose 100 MG; Start 07/07/16 at 21:00 Hydralazine HCl (Apresoline) 10 mg Q6H PRN IV SBP>160; Start 07/07/16 at 19:30 Aspirin 81 mg 81 mg DAILY PO Last administered on 07/20/16 11:11; Admin Dose 81 MG; Start 07/10/16 at 09:00 Ceftriaxone Sodium (Rocephin) 50 ml @ 100 mls/hr Q24H IVPB Last administered on 07/20/16 15:19; Admin Dose 100 MLS/HR; Start 07/10/16 at 15:00 Nicotine 1 patch 1 patch DAILY TRANSDERM Last administered on 07/20/16 11:11; Admin Dose 1 PATCH; Start 07/12/16 at 11:00 Lactated Ringer's (Lr) 1,000 ml @ 100 mls/hr Q10H IV Last administered on 07/20 15:00; Admin Dose 100 MLS/HR; Start 07/18/16 at 22:00 LAN VILLARREAL Jul 20, 2016 18:36
[2016-07-20] MEDS: HYDROCODONE/APAP (5/325) TAB PO PRN (18:42)
--- NOTE | 2016-07-20 18:45 | PN ---
DATE: SUBJECTIVE: No acute changes overnight. The patient is alert, feels good, looks comfortable, no fe vers. VITAL SIGNS: Stable. T-max was last night 100. T-current 98.3. LABORATORY DATA: WBC 8.3. No shift, no bands. BUN 10, creatinine 0.71. ANTIMICROBIALS: The patient remains on Rocephin. MICROBIOLOGY: Wound culture on admission grew oxacillin-sensitive Staphylococcus aureus. PHYSICAL EXAMINATION: GENERAL: Well-developed, elderly woman who is alert, in no distress. HEENT: Head atraumatic, normocephalic. Sclerae anicteric. Buccal mucosa pink. NECK: Supple. Trachea midline. CHEST: Rise symmetrical. Breath sounds clear. HEART: S1, S2. ABDOMEN: Soft, bowel tones present. EXTREMITIES: With right femoral dressing intact. ASSESSMENT: 1. Right foot gangrene. 2. Peripheral arterial disease status post femoral-femoral bypass graft, postoperative day #2. 3. Hypertension. 4. Dyslipidemia. PLAN: The patient remains stable on appropriate antimicrobials pending toe amputation. Dictated By: PENNY BORREGO PRECIPITATOR SUPERVISOR for GUSTAVO PUGH MD NI/NTS Conf#: [id number] DID#: [id number] CC: MAYA STOUT MD;*EndCC*
[2016-07-20] MEDS: ATORVASTATIN 20 MG TAB PO SCH (20:24)
[2016-07-21] VITALS (27 sets, daily range): BP systolic 78–127; BP diastolic 36–65; PULSE 68–96; RESP 13–48
[2016-07-21] MEDS: LACTATED RINGER'S 1,000 ML IV SCH ×3 (01:13→11:19)
[2016-07-21] MEDS: morphine 2 MG INJ IV PRN ×4 (04:13→20:57)
[2016-07-21 07:53] LABS: POTASSIUM 3.2 mmol/L (3.5-5.1)
[2016-07-21 07:55] LABS: CREATININE 0.49 mg/dl (0.44-1.00)
[2016-07-21 07:56] LABS: CALCIUM 8.4 mg/dl (8.4-10.2); MAGNESIUM 1.7 mg/dl (1.7-2.5)
[2016-07-21 08:24] LABS: BASOPHILS % 0.6 % (0.0-2.0); EOSINOPHILS # 0.1 10^3/ul (0.0-0.5); EOSINOPHILS % 1.6 % (0.0-7.0); HEMATOCRIT 27.2 % (37.0-47.0); HEMOGLOBIN 9.3 g/dl (12.0-16.0); LYMPHOCYTES # 1.5 10^3/ul (0.8-2.9); LYMPHOCYTES % 18.5 % (15.0-51.0); MEAN CORPUSCULAR HEMOGLOBIN 33.3 pg (29.0-33.0); MEAN CORPUSCULAR HGB CONC 34.1 g/dl (32.0-37.0); MEAN CORPUSCULAR VOLUME 97.8 fl (82.0-101.0); MEAN PLATELET VOLUME 10.6 fl (7.4-10.4); MONOCYTE # 0.6 10^3/ul (0.3-0.9); MONOCYTES % 6.9 % (0.0-11.0); NEUTROPHILS % 72.4 % (39.0-77.0); PLATELET COUNT 187 10^3/UL (140-440); RED BLOOD COUNT 2.78 10^6/ul (4.20-5.40); RED CELL DISTRIBUTION WIDTH 12.3 % (11.5-14.5); UNCORRECTED WBC 8.2 10^3/ul (4.8-10.8); WHITE BLOOD COUNT 8.2 10^3/ul (4.8-10.8)
[2016-07-21] MEDS: METOPROLOL 100 MG TAB PO SCH ×2 (08:30→20:56)
[2016-07-21] MEDS: NICOTINE (21 MG/24 HR) PATCH TRANSDERM SCH (08:30)
[2016-07-21] MEDS: FAMOTIDINE 20 MG TAB PO SCH ×2 (08:31→20:56)
[2016-07-21] MEDS: HYDROCHLOROTHIAZIDE 25 MG TAB PO SCH (08:31)
[2016-07-21] MEDS: LOSARTAN 25 MG TAB PO SCH (08:31)
[2016-07-21] MEDS: AMLODIPINE 10 MG TAB PO SCH (08:31)
[2016-07-21] MEDS: ENOXAPARIN 40 MG/0.4 ML SYG SC SCH (08:31)
[2016-07-21] MEDS: ASPIRIN (EC) 81 MG TAB PO SCH (08:31)
[2016-07-21 08:45] LABS: CONDITION 1
[2016-07-21] MEDS: HYDROCODONE/APAP (5/325) TAB PO PRN (11:18)
--- NOTE | 2016-07-21 12:56 | PN ---
Date/Time of Note Date/Time of Note DATE: 07/21/16 TIME: 12:55 Assessment/Plan VTE Prophylaxis VTE Prophylaxis Intervention: LMWH Lines/Catheters IV Catheter Type (from [facility]): Peripheral IV Urinary Cath still in place: Yes Reason Cath still needed: other (indicate) Assessment/Plan Chief Complaint/Hosp Course 1. Right foot cellulitis with gangrene. The patient was seen and evaluated by Podiatry. The patient will be provided with adequate pain control. The patient will be maintained on appropriate antibiotics. Wound culture positive for staph aureus. Plan for amputation of the affected toes. 2. Essential hypertension. Continue routine antihypertensives. Continue p.r.n. antihypertensives for any systolic blood pressure readings greater than 160 mmHg. 3. Dyslipidemia. Continue statins. 4. Peripheral vascular disease. Occluded right common iliac artery and external iliac artery. 50% stenosis of the right superficial femoral artery with completely occluded right posterior tibial artery. S/P left iliac artery stent placement on 07/14/2016. S/P right femoral-femoral bypass on 07/18/2016. 5. Nicotine use. Will provide the patient with a nicotine patch. Will advise cessation. 6. Fluids, electrolytes, and nutrition. Low cholesterol diet. 7. DVT prophylaxis. Subcutaneous Lovenox. 8. Gastrointestinal prophylaxis. Histamine 2 receptor blockers. 9. Plan. Continue pain control. Continue antibiotics. Replete potassium. Await amputation of the toes. Case discussed with Dr. Dietz. Problems: Subjective 24 Hr Interval Summary Free Text/Dictation Complains of pain in the right foot. Exam/Review of Systems Vital Signs Vitals Vital Signs Date Time Temp Pulse Resp B/P Pulse Ox O2 Delivery O2 Flow Rate FiO2 07/21/16 12:22 69 07/21/16 12:08 98.4 16 99/49 92 07/21/16 08:53 Nasal Cannula 2.0 07/18/16 23:14 21 Intake and Output 07/20/16 07/20/16 07/21/16 15:00 23:00 07:00 Intake Total 650 ml 1800 ml Output Total 1100 ml 1300 ml Balance -450 ml 500 ml Exam GENERAL: This is a well-built, well-nourished female lying in bed in no apparent distress. HEENT: Head normocephalic and atraumatic. Eyes: Anicteric sclerae. Conjunctivae clear. ENT: Nasal septum is midline. Oral mucosa is moist. NECK: Supple. No JVD noticed. RESPIRATORY: Bilaterally clear to auscultation. No adventitious breath sounds. No use of accessory muscles of respiration. CARDIAC: Regular rate and rhythm. No murmurs heard. ABDOMEN: Soft, nontender, nondistended. Bowel sounds positive in all 4 quadrants. GENITOURINARY: Deferred. EXTREMITIES: No cyanosis, no clubbing, no edema. Peripheral pulses palpable. Bilateral pedal pulses diminished. Right foot erythema and is turning necrotic between the 3rd and 4th digits with radiation of erythema on the dorsal surface with tenderness to touch in the area. NEUROLOGIC: The patient is awake, alert and oriented. Cranial nerves are grossly intact. Results Result Diagram: 07/21/1662407/21/16624 Results 24 hrs Laboratory Tests Test 07/21/16 06:25 Anion Gap 10 Basophils # 0.0 Basophils % 0.6 Blood Morphology Comment Blood Urea Nitrogen 5 L Calcium Level 8.4 Carbon Dioxide Level 32 H Chloride Level 99 Creatinine 0.49 Eosinophils # 0.1 Eosinophils % 1.6 Glucose Level 78 Hematocrit 27.2 L Hemoglobin 9.3 L Lymphocytes # 1.5 Lymphocytes % 18.5 Magnesium Level 1.7 Mean Corpuscular Hemoglobin 33.3 H Mean Corpuscular Hemoglobin Concent 34.1 Mean Corpuscular Volume 97.8 Mean Platelet Volume 10.6 H Monocytes # 0.6 Monocytes % 6.9 Neutrophils # 6.0 Neutrophils % 72.4 Nucleated Red Blood Cells # 0.0 Nucleated Red Blood Cells % 0.0 Platelet Count 187 Potassium Level 3.2 L Red Blood Count 2.78 L Red Cell Distribution Width 12.3 Sodium Level 138 White Blood Count 8.2 Medications Medications Current Medications Ondansetron HCl (Zofran Inj) 4 mg Q6H PRN IV NAUSEA AND/OR VOMITING; Start 07/07 at 19:00 Acetaminophen (Tylenol Tab) 650 mg Q6H PRN PO PAIN LEVEL 1-3 OR FEVER Last administered on 07/20/16 01:07; Admin Dose 650 MG; Start 07/07/16 at 19:00 Acetaminophen/ Hydrocodone Bitart ([place] (5/325)) 1 tab Q6H PRN PO MODERATE PAIN LEVEL 4-6 Last administered on 07/21/16 11:18; Admin Dose 1 TAB; Start 07/07/16 at 19:00 Morphine Sulfate (morphine) 2 mg Q4H PRN IV SEVERE PAIN LEVEL 7-10 Last administered on 07/21/16 08:23; Admin Dose 2 MG; Start 07/07/16 at 19:00 Magnesium Hydroxide (Milk Of Mag) 30 ml DAILY PRN PO CONSTIPATION; Start at 19:00 Bisacodyl (Dulcolax) 5 mg DAILY PRN PO CONSTIPATION; Start 07/07/16 at 19:00 Zolpidem Tartrate (Ambien) 5 mg QHS PRN PO SLEEP; Start 07/07/16 at 19:00 Famotidine (Pepcid) 20 mg Q12 PO Last administered on 07/21/16 08:31; Admin Dose 20 MG; Start 07/07/16 at 21:00 Enoxaparin Sodium (Lovenox) 40 mg DAILY SC Last administered on 07/20/16 11:11 ; Admin Dose 40 MG; Start 07/08/16 at 09:00 Amlodipine Besylate (Norvasc) 10 mg DAILY PO Last administered on 07/21/16 08: 31; Admin Dose 10 MG; Start 07/08/16 at 09:00 Atorvastatin Calcium (Lipitor) 20 mg QHS PO Last administered on 07/20/16 20: 24; Admin Dose 20 MG; Start 07/07/16 at 21:00 Hydrochlorothiazide (Hydrochlorothiazide) 25 mg DAILY PO Last administered on 08:31; Admin Dose 25 MG; Start 07/08/16 at 09:00 Losartan Potassium (Cozaar) 25 mg DAILY PO Last administered on 07/21/16 08:31 ; Admin Dose 25 MG; Start 07/08/16 at 09:00 Metoprolol Tartrate (Lopressor) 100 mg BID PO Last administered on 07/21/16 08 :30; Admin Dose 100 MG; Start 07/07/16 at 21:00 Hydralazine HCl (Apresoline) 10 mg Q6H PRN IV SBP>160; Start 07/07/16 at 19:30 Aspirin 81 mg 81 mg DAILY PO Last administered on 07/21/16 08:31; Admin Dose 81 MG; Start 07/10/16 at 09:00 Ceftriaxone Sodium (Rocephin) 50 ml @ 100 mls/hr Q24H IVPB Last administered on 07/20/16 15:19; Admin Dose 100 MLS/HR; Start 07/10/16 at 15:00 Nicotine 1 patch 1 patch DAILY TRANSDERM Last administered on 07/21/16 08:30; Admin Dose 1 PATCH; Start 07/12/16 at 11:00 Lactated Ringer's (Lr) 1,000 ml @ 100 mls/hr Q10H IV Last administered on 07/21 11:19; Admin Dose 100 MLS/HR; Start 07/18/16 at 22:00 BOBY MACHUCA NP Jul 21, 2016 12:56
[2016-07-21] MEDS ORDERED: POTASSIUM CHLORIDE 250 ML IVPB ONE (13:00)
[2016-07-21] MEDS: CEFTRIAXONE 1 GM/50 ML (PMX) 50 ML IVPB SCH (15:29)
[2016-07-21] MEDS ORDERED: ONDANSETRON 4 MG INJ IV PRN (16:30)
[2016-07-21] MEDS ORDERED: DIPHENHYDRAMINE 50 MG INJ IV PRN (16:30)
[2016-07-21] MEDS ORDERED: MEPERIDINE 25 MG INJ IV PRN (16:30)
[2016-07-21] MEDS ORDERED: LABETALOL HCL 20MG INJ IV PRN (16:30)
[2016-07-21] MEDS ORDERED: METOCLOPRAMIDE 10 MG INJ IV PRN (16:30)
[2016-07-21] MEDS ORDERED: FENTAnyl 50 MCG/ML VIAL IV PRN (16:30)
[2016-07-21] MEDS ORDERED: PROCHLORPERAZINE 10 MG INJ IV PRN (16:30)
[2016-07-21] MEDS ORDERED: OXYCODONE/ACETAMINOPHEN (5/325) TAB PO PRN (16:30)
[2016-07-21] MEDS ORDERED: HYDROmorphONE (0.2 MG/ML) 10ML SYG IV PRN ×2 (16:30)
[2016-07-21] MEDS ORDERED: hydrALAzine 20 MG INJ IV PRN (16:30)
[2016-07-21] MEDS ORDERED: LIDOCAINE 2% (SDV) 5 ML INJ ONE (16:34)
[2016-07-21] MEDS ORDERED: PROPOFOL 20 ML ONE (16:34)
[2016-07-21] MEDS ORDERED: FENTAnyl 50 MCG/ML VIAL ONE (16:35)
[2016-07-21] MEDS ORDERED: MIDAZOLAM 1 MG/ML 2 ML INJ ONE (16:35)
--- NOTE | 2016-07-21 17:12 | CONS ---
Date/Time of Note Date/Time of Note DATE: 07/21/16 TIME: 17:11 Assessment/Plan Assessment/Plan Chief Complaint/Hosp Course SUBJECTIVE: No acute changes overnight. The patient is alert, looks comfortable, no fevers. ANTIMICROBIALS: The patient remains on Rocephin. MICROBIOLOGY: Wound culture on admission grew oxacillin-sensitive Staphylococcus aureus. PHYSICAL EXAMINATION: GENERAL: Well-developed, elderly woman who is alert, in no distress. HEENT: Head atraumatic, normocephalic. Sclerae anicteric. Buccal mucosa pink. NECK: Supple. Trachea midline. CHEST: Rise symmetrical. Breath sounds clear. HEART: S1, S2. ABDOMEN: Soft, bowel tones present. EXTREMITIES: With right femoral dressing intact. ASSESSMENT: 1. Right foot gangrene. 2. Peripheral arterial disease status post femoral-femoral bypass graft, postoperative day #3. 3. Hypertension. 4. Dyslipidemia. PLAN: The patient remains stable, continue abx, pending toe amputation. Podiatry/vascular rec-s [facility] staff Problems: Consultation Date/Type/Reason Admit Date/Time Jul 07, 2016 at 17:26 Type of Consultation: ID Exam/Review of Systems Vital Signs Vitals Vital Signs Date Time Temp Pulse Resp B/P Pulse Ox O2 Delivery O2 Flow Rate FiO2 07/21/16 16:40 68 07/21/16 12:08 98.4 16 99/49 92 07/21/16 08:53 Nasal Cannula 2.0 07/18/16 23:14 21 Intake and Output 07/20/16 07/20/16 07/21/16 15:00 23:00 07:00 Intake Total 650 ml 1800 ml Output Total 1100 ml 1300 ml Balance -450 ml 500 ml Results Result Diagram: 07/21/16 0625 07/21/16 0625 Results 24 hrs Laboratory Tests Test 07/21/16 06:25 Anion Gap 10 Basophils # 0.0 Basophils % 0.6 Blood Morphology Comment Blood Urea Nitrogen 5 L Calcium Level 8.4 Carbon Dioxide Level 32 H Chloride Level 99 Creatinine 0.49 Eosinophils # 0.1 Eosinophils % 1.6 Glucose Level 78 Hematocrit 27.2 L Hemoglobin 9.3 L Lymphocytes # 1.5 Lymphocytes % 18.5 Magnesium Level 1.7 Mean Corpuscular Hemoglobin 33.3 H Mean Corpuscular Hemoglobin Concent 34.1 Mean Corpuscular Volume 97.8 Mean Platelet Volume 10.6 H Monocytes # 0.6 Monocytes % 6.9 Neutrophils # 6.0 Neutrophils % 72.4 Nucleated Red Blood Cells # 0.0 Nucleated Red Blood Cells % 0.0 Platelet Count 187 Potassium Level 3.2 L Red Blood Count 2.78 L Red Cell Distribution Width 12.3 Sodium Level 138 White Blood Count 8.2 Medications Medications Current Medications Ondansetron HCl (Zofran Inj) 4 mg Q6H PRN IV NAUSEA AND/OR VOMITING; Start 07/07 at 19:00 Acetaminophen (Tylenol Tab) 650 mg Q6H PRN PO PAIN LEVEL 1-3 OR FEVER Last administered on 07/20/16 01:07; Admin Dose 650 MG; Start 07/07/16 at 19:00 Acetaminophen/ Hydrocodone Bitart ([place] (5/325)) 1 tab Q6H PRN PO MODERATE PAIN LEVEL 4-6 Last administered on 07/21/16 11:18; Admin Dose 1 TAB; Start 07/07/16 at 19:00 Morphine Sulfate (morphine) 2 mg Q4H PRN IV SEVERE PAIN LEVEL 7-10 Last administered on 07/21/16 14:18; Admin Dose 2 MG; Start 07/07/16 at 19:00 Magnesium Hydroxide (Milk Of Mag) 30 ml DAILY PRN PO CONSTIPATION; Start at 19:00 Bisacodyl (Dulcolax) 5 mg DAILY PRN PO CONSTIPATION; Start 07/07/16 at 19:00 Zolpidem Tartrate (Ambien) 5 mg QHS PRN PO SLEEP; Start 07/07/16 at 19:00 Famotidine (Pepcid) 20 mg Q12 PO Last administered on 07/21/16 08:31; Admin Dose 20 MG; Start 07/07/16 at 21:00 Enoxaparin Sodium (Lovenox) 40 mg DAILY SC Last administered on 07/20/16 11:11 ; Admin Dose 40 MG; Start 07/08/16 at 09:00 Amlodipine Besylate (Norvasc) 10 mg DAILY PO Last administered on 07/21/16 08: 31; Admin Dose 10 MG; Start 07/08/16 at 09:00 Atorvastatin Calcium (Lipitor) 20 mg QHS PO Last administered on 07/20/16 20: 24; Admin Dose 20 MG; Start 07/07/16 at 21:00 Hydrochlorothiazide (Hydrochlorothiazide) 25 mg DAILY PO Last administered on 08:31; Admin Dose 25 MG; Start 07/08/16 at 09:00 Losartan Potassium (Cozaar) 25 mg DAILY PO Last administered on 07/21/16 08:31 ; Admin Dose 25 MG; Start 07/08/16 at 09:00 Metoprolol Tartrate (Lopressor) 100 mg BID PO Last administered on 07/21/16 08 :30; Admin Dose 100 MG; Start 07/07/16 at 21:00 Hydralazine HCl (Apresoline) 10 mg Q6H PRN IV SBP>160; Start 07/07/16 at 19:30 Aspirin 81 mg 81 mg DAILY PO Last administered on 07/21/16 08:31; Admin Dose 81 MG; Start 07/10/16 at 09:00 Ceftriaxone Sodium (Rocephin) 50 ml @ 100 mls/hr Q24H IVPB Last administered on 07/21/16 15:29; Admin Dose 100 MLS/HR; Start 07/10/16 at 15:00 Nicotine 1 patch 1 patch DAILY TRANSDERM Last administered on 07/21/16 08:30; Admin Dose 1 PATCH; Start 07/12/16 at 11:00 Lactated Ringer's (Lr) 1,000 ml @ 100 mls/hr Q10H IV Last administered on 07/21 11:19; Admin Dose 100 MLS/HR; Start 07/18/16 at 22:00 PENNY BORREGO NP Jul 21, 2016 17:12
[2016-07-21] MEDS ORDERED: EPHEDrine SULFATE 50 MG/5 ML SYG ONE (17:37)
[2016-07-21] MEDS ORDERED: METOCLOPRAMIDE 10 MG INJ ONE (17:38)
[2016-07-21] MEDS ORDERED: ONDANSETRON 4 MG INJ ONE (17:38)
[2016-07-21] MEDS ORDERED: PHENYLephrine (100 MCG/ML) 5ML SYG ONE (17:40)
[2016-07-21] MEDS ORDERED: VANCOMYCIN 1 GM INJ ONE (17:54)
[2016-07-21] MEDS ORDERED: EPHEDrine SULFATE 50 MG/5 ML SYG IV PRN (18:30)
--- NOTE | 2016-07-21 19:29 | OPR ---
DATE OF OPERATION: PREOPERATIVE DIAGNOSIS: Peripheral vascular disease. POSTOPERATIVE DIAGNOSIS: Peripheral vascular disease. OPERATION PERFORMED: 1. Femoral-femoral bypass grafting. 2. Right femoral endarterectomy. 3. Right femoral profundoplasty. 4. Left femoral endarterectomy. SURGEON: Oral Fields MD ANESTHESIA: General. INFORMED CONSENT: Risks, benefits, complications, alternative therapies, high-risk nature of the op eration fully explained to the patient and the family, consent obtained. OPERATIVE TECHNIQUE: The patient was placed in supine position, prepped and draped in usual sterile fashion. Time-out was called. Antibiotics were given. I made bilateral 5 cm incisions in the groin bilaterally. The common femoral, profunda femoral, and superficial femoral arteries were identified. Vesseloops were passed around it. The patient was g iven 5000 units of IV heparin. A 6 mm Orlando-Zak graft was passed from the right groin to the left gr oin. Cross clamps were applied to the common femoral, superficial femoral, and profunda femoris art luiz on the left side. Common femoral artery was opened about 1 cm. The graft was anastomosed to th e common femoral artery in end-to-side fashion after endarterectomy, 6-0 Prolene in continuous sutur e technique. On the right side, we basically did the same except that we also did a profundoplasty using the fady t, again in an end-to-side fashion, to a 2 cm longitudinal arteriotomy that started in the common fe moral artery, extended all the way into the profunda. After an endarterectomy, the anastomosis was done in an end-to-side fashion to 2 cm beveled end of the graft, 6-0 Prolene in continuous suture te chnique. Both wounds were then irrigated and closed in 2 layers of 3-0 Vicryl suture for the deep, 3-0 Vicryl suture for superficial, and kiana for the skin. The patient tolerated both procedures well. Dictated By: ORAL WHITAKER/ASAEL Conf#: [id number] DID#: [id number] CC: MAYA STOUT MD;*EndCC*
[2016-07-21] MEDS: ATORVASTATIN 20 MG TAB PO SCH (20:56)
--- NOTE | 2016-07-21 21:54 | OPR ---
DATE OF OPERATION: 07/21/2016 SURGEON: Carlos Ratliff DPM TELEGRAPH AND TELETYPE OPERATOR: None. PREOPERATIVE DIAGNOSES: 1. Right foot gangrene of toes. 1. Hallux ingrown nail with abscess. 2. Peripheral arterial disease. 3. History of femoral-femoral bypass graft. 4. History of tobacco use. POSTOPERATIVE DIAGNOSES: 1. Right foot gangrene of toes. 1. Hallux ingrown nail with abscess. 2. Peripheral arterial disease. 3. History of femoral-femoral bypass graft. 4. History of tobacco use. PROCEDURES PERFORMED: 1. Right foot incision and drainage of hallux. 2. Right foot 3rd and 4th ray amputation. 3. Application of wound VAC. PATHOLOGY: Amputated toes and tissue culture. ESTIMATED BLOOD LOSS: Less than 10 mL DRAINS: Wound VAC. COMPLICATIONS: None. INDICATION FOR PROCEDURE: A 65-year-old female who was admitted for cellulitis , developed gangrene secondary due to limb ischemia, is status post fem-fem bypass graft. The patient recommended removal of nonviable tissue. The patient at high risk for amputation of foot. The patient has been on antibiotics during this hospitalization. Discussed planned procedure, risks, benefits, potential complications, and informed consent obtained. PROCEDURE IN DETAIL: The patient brought into operating room, placed in supine position. Formal timeout was performed. Foot was properly marked, confirmed by the surgical team, prepped and draped in usual sterile fashion. A formal timeout was performed. Foot was marked, confirmed by the surgical team. At this time, attention was directed to the hallux. The patient had an ingrowing nail with underlying ulcer and abscess. Incision was made, and nonviable skin, subcutaneous tissue removed, abscess drained. The patient had ingrowing nail which was partially removed. Area was irrigated with saline solution. Attention was directed to the right 3rd and 4th toes. Using a 15 blade, incision was made around the gangrenous tissue, and using a Pelaez elevator, the metatarsal was identified. 3rd and 4th metatarsals was transected, and the 3rd and 4th toes were amputated with adjacent metatarsal heads, nonviable skin, subcutaneous tissue. Plantar plates removed. There was thrombosis of digital arteries to the lateral aspect of the 2nd toe. Ulceration was irrigated with saline solution. The patient had estimated blood loss of 10 mL and a silver- coated foam sponge applied to the wound which measured approximately 3 x 4 cm and fully functioned at 75 mmHg. The patient tolerated procedure well, transferred to PACU with vital signs stable. POSTOPERATIVE PLAN: The patient will be admitted for continued antibiotics, likely to require wound VAC at discharge, appreciate case management assistance with this, and patient at high risk for developing decubitus of bilateral heels being bedbound and vascular status. Recommend use of heel cushions while in bed. Also will continue to monitor for any demarcation, is at high risk for further skin necrosis and need for amputation of adjacent toes. Specimen from tissue and amputated toes sent for pathology as well as tissue culture. Dictated By: CARLOS HAQUE/ASAEL Conf#: [id number] DID#: [id number] MTDD
[2016-07-22] VITALS (12 sets, daily range): BP systolic 89–118; BP diastolic 50–62; PULSE 72–89; RESP 14–18
[2016-07-22] MEDS: morphine 2 MG INJ IV PRN ×6 (00:50→21:15)
[2016-07-22] MEDS: LACTATED RINGER'S 1,000 ML IV SCH ×2 (05:06→15:36)
[2016-07-22 07:33] LABS: POTASSIUM 3.3 mmol/L (3.5-5.1)
[2016-07-22 07:36] LABS: CREATININE 0.5 mg/dl (0.44-1.00)
[2016-07-22 07:37] LABS: CALCIUM 8.9 mg/dl (8.4-10.2)
[2016-07-22 07:43] LABS: BASOPHILS % 0.5 % (0.0-2.0); EOSINOPHILS # 0.1 10^3/ul (0.0-0.5); EOSINOPHILS % 1.5 % (0.0-7.0); HEMATOCRIT 27.7 % (37.0-47.0); HEMOGLOBIN 9.5 g/dl (12.0-16.0); LYMPHOCYTES # 1.2 10^3/ul (0.8-2.9); LYMPHOCYTES % 14.9 % (15.0-51.0); MEAN CORPUSCULAR HEMOGLOBIN 33.4 pg (29.0-33.0); MEAN CORPUSCULAR HGB CONC 34.2 g/dl (32.0-37.0); MEAN CORPUSCULAR VOLUME 97.6 fl (82.0-101.0); MEAN PLATELET VOLUME 10.3 fl (7.4-10.4); MONOCYTE # 0.4 10^3/ul (0.3-0.9); MONOCYTES % 5.3 % (0.0-11.0); NEUTROPHIL # 6.4 10^3/ul (1.6-7.5); NEUTROPHILS % 77.8 % (39.0-77.0); PLATELET COUNT 213 10^3/UL (140-440); RED BLOOD COUNT 2.84 10^6/ul (4.20-5.40); RED CELL DISTRIBUTION WIDTH 12.4 % (11.5-14.5); UNCORRECTED WBC 8.2 10^3/ul (4.8-10.8); WHITE BLOOD COUNT 8.2 10^3/ul (4.8-10.8)
[2016-07-22 07:47] LABS: MAGNESIUM 1.5 mg/dl (1.7-2.5)
[2016-07-22 07:59] LABS: CONDITION 1
[2016-07-22] MEDS: LOSARTAN 25 MG TAB PO SCH (09:13)
[2016-07-22] MEDS: AMLODIPINE 10 MG TAB PO SCH (09:13)
[2016-07-22] MEDS: ASPIRIN (EC) 81 MG TAB PO SCH (09:14)
[2016-07-22] MEDS: FAMOTIDINE 20 MG TAB PO SCH ×2 (09:14→20:30)
[2016-07-22] MEDS: METOPROLOL 100 MG TAB PO SCH ×2 (09:14→20:30)
[2016-07-22] MEDS: NICOTINE (21 MG/24 HR) PATCH TRANSDERM SCH (09:15)
[2016-07-22] MEDS: HYDROCHLOROTHIAZIDE 25 MG TAB PO SCH (09:15)
[2016-07-22] MEDS: ENOXAPARIN 40 MG/0.4 ML SYG SC SCH (09:22)
[2016-07-22] MEDS: HYDROCODONE/APAP (5/325) TAB PO PRN (10:55)
[2016-07-22] MEDS ORDERED: POTASSIUM CHLORIDE (SR) 20 MEQ TAB PO STA (13:16)
--- NOTE | 2016-07-22 13:16 | PN ---
Date/Time of Note Date/Time of Note DATE: 07/22/16 TIME: 13:07 Assessment/Plan VTE Prophylaxis VTE Prophylaxis Intervention: LMWH Lines/Catheters IV Catheter Type (from Nrs): Peripheral IV Urinary Cath still in place: Yes Reason Cath still needed: other (indicate) Assessment/Plan Assessment/Plan 1. right foot gangrene of toes, s/p I&D and 3rd/4th ray amputation, on wound vac , follow up with podiatry 2. Peripheral vascular disease, s/p S/P left iliac artery stent placement on . S/P right femoral-femoral bypass on 07/18/2016 3. Essential hypertension. controlled 4. Dyslipidemia. Continue statins. 5. Nicotine use. Will provide the patient with a nicotine patch. Will advise cessation. 6. DVT prophylaxis. Subcutaneous Lovenox. 7. Gastrointestinal prophylaxis. Histamine 2 receptor blockers. 8. Normocytic anemia, stable 9. Hypokalemia, KCL 10. Hypomagnesemia, Mg Subjective 24 Hr Interval Summary Free Text/Dictation pain on right foot, no other complaint Exam/Review of Systems Vital Signs Vitals Vital Signs Date Time Temp Pulse Resp B/P Pulse Ox O2 Delivery O2 Flow Rate FiO2 07/22/16 12:15 72 07/22/16 12:10 98.9 14 95/50 95 07/21/16 22:39 Nasal Cannula 2.0 07/18/16 23:14 21 Intake and Output 07/21/16 07/21/16 07/22/16 15:00 23:00 07:00 Intake Total 1945 ml 500 ml Output Total 3405 ml 950 ml Balance -1460 ml -450 ml Exam Constitutional: alert, oriented, well developed Psych: nl mood/affect, no complaints Head: atraumatic, normocephalic Eyes: EOMI, PERRL, nl conjunctiva, nl sclera ENMT: mucosa pink and moist, nl external ears & nose, nl lips & teeth, nl nasal mucosa & septum Neck: non-tender, supple Respiratory: clear to auscultation, normal air movement, No congested cough, No crackles/rales, No diminished breath sounds, No intercostal retraction, No labored breathing, No respirations, No tactile fremitus, No wheezing Cardiovascular: nl pulses, regular rate and rhythm, No S3, No S4, No bruits, No diastolic murmur, No edema, No gallop, No irregular rhythm, No jugular venous distention (JVD), No murmurs/extra sounds, No rub, No systolic murmur Gastrointestinal: nl liver, spleen, non-tender, soft, No ascites, No bowel sounds, No distended, No firm, No hepatomegaly, No mass , No rebound or guarding, No splenomegaly, No surgical scars, No tender Musculoskeletal: nl extremities to inspection Extremities: normal pulses, other (s/p right foot toe amputation), No calf tenderness, No clubbing, No cyanosis, No edema, No palpable cord, No pitting pedal edema, No tenderness Neurological: DISPATCHER BUS AND TROLLEY II-XII intact, nl mental status, nl speech, nl strength Skin: nl turgor, rash or lesions Lymph: nl lymph nodes Results Result Diagram: 07/22/16 0606 07/22/16 0606 Results 24 hrs Laboratory Tests Test 07/22/16 06:06 Anion Gap 12 Basophils # 0.0 Basophils % 0.5 Blood Urea Nitrogen 4 L Calcium Level 8.9 Carbon Dioxide Level 32 H Chloride Level 97 Creatinine 0.50 Eosinophils # 0.1 Eosinophils % 1.5 Glucose Level 91 Hematocrit 27.7 L Hemoglobin 9.5 L Lymphocytes # 1.2 Lymphocytes % 14.9 L Magnesium Level 1.5 L Mean Corpuscular Hemoglobin 33.4 H Mean Corpuscular Hemoglobin Concent 34.2 Mean Corpuscular Volume 97.6 Mean Platelet Volume 10.3 Monocytes # 0.4 Monocytes % 5.3 Neutrophils # 6.4 Neutrophils % 77.8 H Nucleated Red Blood Cells # 0.0 Nucleated Red Blood Cells % 0.0 Phosphorus Level 5.0 H Platelet Count 213 Potassium Level 3.3 L Red Blood Count 2.84 L Red Cell Distribution Width 12.4 Sodium Level 138 White Blood Count 8.2 Medications Medications Current Medications Ondansetron HCl (Zofran Inj) 4 mg Q6H PRN IV NAUSEA AND/OR VOMITING; Start 07/07 at 19:00 Acetaminophen (Tylenol Tab) 650 mg Q6H PRN PO PAIN LEVEL 1-3 OR FEVER Last administered on 07/20/16t 01:07; Admin Dose 650 MG; Start 07/07/16 at 19:00 Acetaminophen/ Hydrocodone Bitart ([place] (5/325)) 1 tab Q6H PRN PO MODERATE PAIN LEVEL 4-6 Last administered on 07/22/16 10:55; Admin Dose 1 TAB; Start 07/07/16 at 19:00 Morphine Sulfate (morphine) 2 mg Q4H PRN IV SEVERE PAIN LEVEL 7-10 Last administered on 07/22/16 12:55; Admin Dose 2 MG; Start 07/07/16 at 19:00 Magnesium Hydroxide (Milk Of Mag) 30 ml DAILY PRN PO CONSTIPATION; Start at 19:00 Bisacodyl (Dulcolax) 5 mg DAILY PRN PO CONSTIPATION; Start 07/07/16 at 19:00 Zolpidem Tartrate (Ambien) 5 mg QHS PRN PO SLEEP; Start 07/07/16 at 19:00 Famotidine (Pepcid) 20 mg Q12 PO Last administered on 07/22/16 09:14; Admin Dose 20 MG; Start 07/07/16 at 21:00 Enoxaparin Sodium (Lovenox) 40 mg DAILY SC Last administered on 07/22/16 09:22 ; Admin Dose 40 MG; Start 07/08/16 at 09:00 Amlodipine Besylate (Norvasc) 10 mg DAILY PO Last administered on 07/22/16 09: 13; Admin Dose 10 MG; Start 07/08/16 at 09:00 Atorvastatin Calcium (Lipitor) 20 mg QHS PO Last administered on 07/21/16 20: 56; Admin Dose 20 MG; Start 07/07/16 at 21:00 Hydrochlorothiazide (Hydrochlorothiazide) 25 mg DAILY PO Last administered on 09:15; Admin Dose 25 MG; Start 07/08/16 at 09:00 Losartan Potassium (Cozaar) 25 mg DAILY PO Last administered on 07/22/16 09:13 ; Admin Dose 25 MG; Start 07/08/16 at 09:00 Metoprolol Tartrate (Lopressor) 100 mg BID PO Last administered on 07/22/16 09 :14; Admin Dose 100 MG; Start 07/07/16 at 21:00 Hydralazine HCl (Apresoline) 10 mg Q6H PRN IV SBP>160; Start 07/07/16 at 19:30 Aspirin 81 mg 81 mg DAILY PO Last administered on 07/22/16 09:14; Admin Dose 81 MG; Start 07/10/16 at 09:00 Ceftriaxone Sodium (Rocephin) 50 ml @ 100 mls/hr Q24H IVPB Last administered on 07/21/16 15:29; Admin Dose 100 MLS/HR; Start 07/10/16 at 15:00 Nicotine 1 patch 1 patch DAILY TRANSDERM Last administered on 07/22/16 09:15; Admin Dose 1 PATCH; Start 07/12/16 at 11:00 Lactated Ringer's (Lr) 1,000 ml @ 100 mls/hr Q10H IV Last administered on 07/22 05:06; Admin Dose 100 MLS/HR; Start 07/18/16 at 22:00 REINALDO PILLAI MD Jul 22, 2016 13:16
[2016-07-22] MEDS ORDERED: MAGNESIUM SULFATE 3 GM in SOD CHLORIDE 0.9% 100 ML IVPB ONE (13:30)
--- NOTE | 2016-07-22 14:13 | CONS ---
Date/Time of Note Date/Time of Note DATE: 07/22/16 TIME: 14:10 Assessment/Plan Assessment/Plan Chief Complaint/Hosp Course SUBJECTIVE: No acute changes overnight. The patient is alert, looks comfortable, no fevers. ANTIMICROBIALS: The patient remains on Rocephin. MICROBIOLOGY: Wound culture on admission grew oxacillin-sensitive Staphylococcus aureus. PHYSICAL EXAMINATION: GENERAL: Well-developed, elderly woman who is alert, in no distress. HEENT: Head atraumatic, normocephalic. Sclerae anicteric. Buccal mucosa pink. NECK: Supple. Trachea midline. CHEST: Rise symmetrical. Breath sounds clear. HEART: S1, S2. ABDOMEN: Soft, bowel tones present. EXTREMITIES: With right femoral dressing intact. ASSESSMENT: 1. 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 Peripheral arterial disease status post femoral-femoral bypass graft, postoperative day. 3. Hypertension. 4. Dyslipidemia. PLAN: The patient remains stable, continue abx, f/u podiatry/vascular rec-s, may need another debridement DW staff Problems: Consultation Date/Type/Reason Admit Date/Time Jul 07, 2016 at 17:26 Type of Consultation: ID Exam/Review of Systems Vital Signs Vitals Vital Signs Date Time Temp Pulse Resp B/P Pulse Ox O2 Delivery O2 Flow Rate FiO2 07/22/16 12:15 72 07/22/16 12:10 98.9 14 95/50 95 07/21/16 22:39 Nasal Cannula 2.0 07/18/16 23:14 21 Intake and Output 07/21/16 07/21/16 07/22/16 15:00 23:00 07:00 Intake Total 1945 ml 500 ml Output Total 3405 ml 950 ml Balance -1460 ml -450 ml Results Result Diagram: 07/22/16 0606 07/22/16 0606 Results 24 hrs Laboratory Tests Test 07/22/16 06:06 Anion Gap 12 Basophils # 0.0 Basophils % 0.5 Blood Urea Nitrogen 4 L Calcium Level 8.9 Carbon Dioxide Level 32 H Chloride Level 97 Creatinine 0.50 Eosinophils # 0.1 Eosinophils % 1.5 Glucose Level 91 Hematocrit 27.7 L Hemoglobin 9.5 L Lymphocytes # 1.2 Lymphocytes % 14.9 L Magnesium Level 1.5 L Mean Corpuscular Hemoglobin 33.4 H Mean Corpuscular Hemoglobin Concent 34.2 Mean Corpuscular Volume 97.6 Mean Platelet Volume 10.3 Monocytes # 0.4 Monocytes % 5.3 Neutrophils # 6.4 Neutrophils % 77.8 H Nucleated Red Blood Cells # 0.0 Nucleated Red Blood Cells % 0.0 Phosphorus Level 5.0 H Platelet Count 213 Potassium Level 3.3 L Red Blood Count 2.84 L Red Cell Distribution Width 12.4 Sodium Level 138 White Blood Count 8.2 Medications Medications Current Medications Ondansetron HCl (Zofran Inj) 4 mg Q6H PRN IV NAUSEA AND/OR VOMITING; Start 07/07 at 19:00 Acetaminophen (Tylenol Tab) 650 mg Q6H PRN PO PAIN LEVEL 1-3 OR FEVER Last administered on 07/20/16 01:07; Admin Dose 650 MG; Start 07/07/16 at 19:00 Acetaminophen/ Hydrocodone Bitart ([place] (5/325)) 1 tab Q6H PRN PO MODERATE PAIN LEVEL 4-6 Last administered on 07/22/16 10:55; Admin Dose 1 TAB; Start 07/07/16 at 19:00 Morphine Sulfate (morphine) 2 mg Q4H PRN IV SEVERE PAIN LEVEL 7-10 Last administered on 07/22/16 12:55; Admin Dose 2 MG; Start 07/07/16 at 19:00 Magnesium Hydroxide (Milk Of Mag) 30 ml DAILY PRN PO CONSTIPATION; Start at 19:00 Bisacodyl (Dulcolax) 5 mg DAILY PRN PO CONSTIPATION; Start 07/07/16 at 19:00 Zolpidem Tartrate (Ambien) 5 mg QHS PRN PO SLEEP; Start 07/07/16 at 19:00 Famotidine (Pepcid) 20 mg Q12 PO Last administered on 07/22/16 09:14; Admin Dose 20 MG; Start 07/07/16 at 21:00 Enoxaparin Sodium (Lovenox) 40 mg DAILY SC Last administered on 07/22/16 09:22 ; Admin Dose 40 MG; Start 07/08/16 at 09:00 Amlodipine Besylate (Norvasc) 10 mg DAILY PO Last administered on 07/22/16 09: 13; Admin Dose 10 MG; Start 07/08/16 at 09:00 Atorvastatin Calcium (Lipitor) 20 mg QHS PO Last administered on 07/21/16 20: 56; Admin Dose 20 MG; Start 07/07/16 at 21:00 Hydrochlorothiazide (Hydrochlorothiazide) 25 mg DAILY PO Last administered on 09:15; Admin Dose 25 MG; Start 07/08/16 at 09:00 Losartan Potassium (Cozaar) 25 mg DAILY PO Last administered on 07/22/16 09:13 ; Admin Dose 25 MG; Start 07/08/16 at 09:00 Metoprolol Tartrate (Lopressor) 100 mg BID PO Last administered on 07/22/16 09 :14; Admin Dose 100 MG; Start 07/07/16 at 21:00 Hydralazine HCl (Apresoline) 10 mg Q6H PRN IV SBP>160; Start 07/07/16 at 19:30 Aspirin 81 mg 81 mg DAILY PO Last administered on 07/22/16 09:14; Admin Dose 81 MG; Start 07/10/16 at 09:00 Ceftriaxone Sodium (Rocephin) 50 ml @ 100 mls/hr Q24H IVPB Last administered on 07/21/16 15:29; Admin Dose 100 MLS/HR; Start 07/10/16 at 15:00 Nicotine 1 patch 1 patch DAILY TRANSDERM Last administered on 07/22/16 09:15; Admin Dose 1 PATCH; Start 07/12/16 at 11:00 Lactated Ringer's 1,000 ml @ 100 mls/hr Q10H IV Last administered on 05:06; Admin Dose 100 MLS/HR; Start 07/18/16 at 22:00 Magnesium Sulfate/ Sodium Chloride (Magnesium Sulfate/NS) 106 ml @ 35.333 mls/ hr ONCE ONCE IVPB ; Start 07/22/16 at 13:30; Stop 07/22/16 at 16:29 PENNY BORREGO NP Jul 22, 2016 14:13
[2016-07-22] MEDS: CEFTRIAXONE 1 GM/50 ML (PMX) 50 ML IVPB SCH (15:36)
--- NOTE | 2016-07-22 19:37 | CONS ---
DATE OF ADMISSION: 07/07/2016 DATE OF CONSULTATION: 07/22/2016 SUBJECTIVE: The patient is postoperative right foot surgery status post incision and drainage of ponce llux and third and fourth ray amputation. The patient using a wound VAC as a drain. Preliminary wo und cultures no growth. The patient relates some mild pain. Denies any fever, nausea, vomiting, ch est pain, shortness of breath. OBJECTIVE FINDINGS: The patient's right foot with wound VAC. Improved color of skin to the hallux. There is a small area of skin necrosis measuring approximately 2 mm the distal medial aspect of th e great toe. Adjacent toes are warm with palpation. Mild tenderness to the heel without evidence o f ulceration. Skin is blanchable. There is minimal serosanguineous drainage. ASSESSMENT: 1. Right foot gangrene status post third and fourth ray amputation. 2. Peripheral arterial disease status post femoral-femoral bypass graft. 3. Hypertension. 4. Hyperlipidemia. PLAN: Continue negative pressure wound therapy. Discussed discharge planning. The patient would b enefit from short-term placement in a senior living facility and likely to require negative pressu re wound therapy at the time of discharge. Further recommendations once culture results, pathology results become available. May require staged debridement. Dictated By: CARLOS CRAWFORD DPM RB/ASAEL Conf#: [id number] DID#: [id number] CC: MAYA STOUT MD;*EndCC*
[2016-07-22] MEDS: ATORVASTATIN 20 MG TAB PO SCH (20:30)
[2016-07-23] VITALS (11 sets, daily range): BP systolic 94–162; BP diastolic 45–72; PULSE 62–85; RESP 17–20
[2016-07-23] MEDS: morphine 2 MG INJ IV PRN ×5 (00:51→20:33)
[2016-07-23] MEDS: LACTATED RINGER'S 1,000 ML IV SCH ×3 (06:17→19:37)
[2016-07-23 06:30] LABS: BASOPHILS % 0.3 % (0.0-2.0); EOSINOPHILS # 0.2 10^3/ul (0.0-0.5); EOSINOPHILS % 2.6 % (0.0-7.0); HEMATOCRIT 28.6 % (37.0-47.0); HEMOGLOBIN 9.8 g/dl (12.0-16.0); LYMPHOCYTES # 1.3 10^3/ul (0.8-2.9); LYMPHOCYTES % 19.2 % (15.0-51.0); MEAN CORPUSCULAR HEMOGLOBIN 33.4 pg (29.0-33.0); MEAN CORPUSCULAR HGB CONC 34.4 g/dl (32.0-37.0); MEAN CORPUSCULAR VOLUME 97.3 fl (82.0-101.0); MONOCYTE # 0.4 10^3/ul (0.3-0.9); MONOCYTES % 5.8 % (0.0-11.0); NEUTROPHILS % 72.1 % (39.0-77.0); PLATELET COUNT 222 10^3/UL (140-440); RED BLOOD COUNT 2.94 10^6/ul (4.20-5.40); RED CELL DISTRIBUTION WIDTH 12.6 % (11.5-14.5)
[2016-07-23 06:33] LABS: CONDITION 1
[2016-07-23 06:35] LABS: POTASSIUM 3.6 mmol/L (3.5-5.1)
[2016-07-23 06:37] LABS: CREATININE 0.53 mg/dl (0.44-1.00)
[2016-07-23 06:38] LABS: CALCIUM 8.8 mg/dl (8.4-10.2)
[2016-07-23 06:43] LABS: PHOSPHORUS 4.4 mg/dl (2.5-4.9)
[2016-07-23] MEDS: AMLODIPINE 10 MG TAB PO SCH (09:24)
[2016-07-23] MEDS: LOSARTAN 25 MG TAB PO SCH (09:25)
[2016-07-23] MEDS: ASPIRIN (EC) 81 MG TAB PO SCH (09:25)
[2016-07-23] MEDS: HYDROCHLOROTHIAZIDE 25 MG TAB PO SCH (09:25)
[2016-07-23] MEDS: METOPROLOL 100 MG TAB PO SCH ×2 (09:25→20:33)
[2016-07-23] MEDS: FAMOTIDINE 20 MG TAB PO SCH ×2 (09:25→20:33)
[2016-07-23] MEDS: NICOTINE (21 MG/24 HR) PATCH TRANSDERM SCH (09:26)
[2016-07-23] MEDS: ENOXAPARIN 40 MG/0.4 ML SYG SC SCH (09:31)
[2016-07-23] MEDS: HYDROCODONE/APAP (5/325) TAB PO PRN ×2 (09:49→16:26)
--- NOTE | 2016-07-23 12:34 | PN ---
Date/Time of Note Date/Time of Note DATE: 07/23/16 TIME: 12:27 Assessment/Plan VTE Prophylaxis VTE Prophylaxis Intervention: LMWH Lines/Catheters IV Catheter Type (from [facility]): Peripheral IV Urinary Cath still in place: No Assessment/Plan Assessment/Plan 1. right foot gangrene of toes, s/p I&D and 3rd/4th ray amputation, on wound vac , follow up with podiatry 2. Peripheral vascular disease, s/p S/P left iliac artery stent placement on . S/P right femoral-femoral bypass on 07/18/2016 3. Essential hypertension. controlled 4. Dyslipidemia. Continue statins. 5. Nicotine use. Will provide the patient with a nicotine patch. Will advise cessation. 6. DVT prophylaxis. Subcutaneous Lovenox. 7. Gastrointestinal prophylaxis. Histamine 2 receptor blockers. 8. Normocytic anemia, stable 9. Hypokalemia, corrected 10. Hypomagnesemia, corrected 11. Discharge planning Subjective 24 Hr Interval Summary Free Text/Dictation afebrile. talked to her about SNF but she prefers to go home. Exam/Review of Systems Vital Signs Vitals Vital Signs Date Time Temp Pulse Resp B/P Pulse Ox O2 Delivery O2 Flow Rate FiO2 07/23/16 12:13 98.2 86 17 124/72 96 07/23/16 08:15 Nasal Cannula 2.0 Intake and Output 07/22/16 07/22/16 07/23/16 15:00 23:00 07:00 Intake Total 1736 ml 400 ml Output Total 1800 ml 1500 ml Balance -64 ml -1100 ml Exam Constitutional: alert, oriented, well developed Psych: nl mood/affect, no complaints Head: atraumatic, normocephalic Eyes: EOMI, nl conjunctiva, nl lids ENMT: mucosa pink and moist, nl external ears & nose, nl lips & teeth, nl nasal mucosa & septum Neck: non-tender, supple Respiratory: clear to auscultation, normal air movement, No congested cough, No crackles/rales, No diminished breath sounds, No intercostal retraction, No labored breathing, No respirations, No tactile fremitus, No wheezing Cardiovascular: nl pulses, regular rate and rhythm, No S3, No S4, No bruits, No diastolic murmur, No edema, No gallop, No irregular rhythm, No jugular venous distention (JVD), No murmurs/extra sounds, No rub, No systolic murmur Gastrointestinal: nl liver, spleen, non-tender, soft, No ascites, No bowel sounds, No distended, No firm, No hepatomegaly, No mass , No rebound or guarding, No splenomegaly, No surgical scars, No tender Musculoskeletal: nl extremities to inspection Extremities: other (right foot wound clean, on wound VAC) Neurological: [employer] II-XII intact, nl mental status, nl speech, nl strength Skin: nl turgor, rash or lesions Lymph: nl lymph nodes Results Result Diagram: 07/23/1652107/23/16521 Results 24 hrs Laboratory Tests Test 07/23/16 05:22 Anion Gap 15 Basophils # 0.0 Basophils % 0.3 Blood Urea Nitrogen 4 L Calcium Level 8.8 Carbon Dioxide Level 29 Chloride Level 99 Creatinine 0.53 Eosinophils # 0.2 Eosinophils % 2.6 Glucose Level 90 Hematocrit 28.6 L Hemoglobin 9.8 L Lymphocytes # 1.3 Lymphocytes % 19.2 Magnesium Level 2.0 Mean Corpuscular Hemoglobin 33.4 H Mean Corpuscular Hemoglobin Concent 34.4 Mean Corpuscular Volume 97.3 Mean Platelet Volume 10.0 Monocytes # 0.4 Monocytes % 5.8 Neutrophils # 5.0 Neutrophils % 72.1 Nucleated Red Blood Cells # 0.0 Nucleated Red Blood Cells % 0.0 Phosphorus Level 4.4 Platelet Count 222 Potassium Level 3.6 Red Blood Count 2.94 L Red Cell Distribution Width 12.6 Sodium Level 139 White Blood Count 7.0 Medications Medications Current Medications Ondansetron HCl (Zofran Inj) 4 mg Q6H PRN IV NAUSEA AND/OR VOMITING; Start 07/07 at 19:00 Acetaminophen (Tylenol Tab) 650 mg Q6H PRN PO PAIN LEVEL 1-3 OR FEVER Last administered on 07/20/16 01:07; Admin Dose 650 MG; Start 07/07/16 at 19:00 Acetaminophen/ Hydrocodone Bitart ([place] (5/325)) 1 tab Q6H PRN PO MODERATE PAIN LEVEL 4-6 Last administered on 07/23/16 09:49; Admin Dose 1 TAB; Start 07/07/16 at 19:00 Morphine Sulfate (morphine) 2 mg Q4H PRN IV SEVERE PAIN LEVEL 7-10 Last administered on 07/23/16 08:18; Admin Dose 2 MG; Start 07/07/16 at 19:00 Magnesium Hydroxide (Milk Of Mag) 30 ml DAILY PRN PO CONSTIPATION; Start at 19:00 Bisacodyl (Dulcolax) 5 mg DAILY PRN PO CONSTIPATION; Start 07/07/16 at 19:00 Zolpidem Tartrate (Ambien) 5 mg QHS PRN PO SLEEP; Start 07/07/16 at 19:00 Famotidine (Pepcid) 20 mg Q12 PO Last administered on 07/23/16 09:25; Admin Dose 20 MG; Start 07/07/16 at 21:00 Enoxaparin Sodium (Lovenox) 40 mg DAILY SC Last administered on 07/23/16 09:31 ; Admin Dose 40 MG; Start 07/08/16 at 09:00 Amlodipine Besylate (Norvasc) 10 mg DAILY PO Last administered on 07/23/16 09: 24; Admin Dose 10 MG; Start 07/08/16 at 09:00 Atorvastatin Calcium (Lipitor) 20 mg QHS PO Last administered on 07/22/16 20: 30; Admin Dose 20 MG; Start 07/07/16 at 21:00 Hydrochlorothiazide (Hydrochlorothiazide) 25 mg DAILY PO Last administered on 09:25; Admin Dose 25 MG; Start 07/08/16 at 09:00 Losartan Potassium (Cozaar) 25 mg DAILY PO Last administered on 07/23/16 09:25 ; Admin Dose 25 MG; Start 07/08/16 at 09:00 Metoprolol Tartrate (Lopressor) 100 mg BID PO Last administered on 07/23/16 09 :25; Admin Dose 100 MG; Start 07/07/16 at 21:00 Hydralazine HCl (Apresoline) 10 mg Q6H PRN IV SBP>160; Start 07/07/16 at 19:30 Aspirin 81 mg 81 mg DAILY PO Last administered on 07/23/16 09:25; Admin Dose 81 MG; Start 07/10/16 at 09:00 Ceftriaxone Sodium (Rocephin) 50 ml @ 100 mls/hr Q24H IVPB Last administered on 07/22/16 15:36; Admin Dose 100 MLS/HR; Start 07/10/16 at 15:00 Nicotine 1 patch 1 patch DAILY TRANSDERM Last administered on 07/23/16 09:26; Admin Dose 1 PATCH; Start 07/12/16 at 11:00 Lactated Ringer's (Lr) 1,000 ml @ 100 mls/hr Q10H IV Last administered on 07/23 06:17; Admin Dose 100 MLS/HR; Start 07/18/16 at 22:00 REINALDO PILLAI MD Jul 23, 2016 12:33
--- NOTE | 2016-07-23 15:17 | CONS ---
Date/Time of Note Date/Time of Note DATE: 07/23/16 TIME: 15:16 Assessment/Plan Assessment/Plan Chief Complaint/Hosp Course SUBJECTIVE: No acute changes overnight. The patient is sleeping, looks comfortable, no fevers. ANTIMICROBIALS: Rocephin. MICROBIOLOGY: Wound culture on admission grew oxacillin-sensitive Staphylococcus aureus. PHYSICAL EXAMINATION: GENERAL: Well-developed, elderly woman who is in no distress. HEENT: Head atraumatic, normocephalic. NECK: Supple. Trachea midline. CHEST: Rise symmetrical. Breath sounds clear. HEART: S1, S2. ABDOMEN: Soft, bowel tones present. EXTREMITIES: With right femoral dressing intact. ASSESSMENT: 1. 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 Peripheral arterial disease status post femoral-femoral bypass graft, postoperative day. 3. Hypertension. 4. Dyslipidemia. PLAN: The patient remains stable, continue abx, f/u podiatry/vascular rec-s, pending intraoperative cx and pathology report [facility] staff Problems: Consultation Date/Type/Reason Admit Date/Time Jul 07, 2016 at 17:26 Type of Consultation: ID Exam/Review of Systems Vital Signs Vitals Vital Signs Date Time Temp Pulse Resp B/P Pulse Ox O2 Delivery O2 Flow Rate FiO2 07/23/16 12:46 63 07/23/16 12:13 98.2 17 124/72 96 07/23/16 08:15 Nasal Cannula 2.0 Intake and Output 07/22/16 07/22/16 07/23/16 15:00 23:00 07:00 Intake Total 1736 ml 400 ml Output Total 1800 ml 1500 ml Balance -64 ml -1100 ml Results Result Diagram: 07/23/16 0507/23/16 0522 Results 24 hrs Laboratory Tests Test 07/23/16 05:22 Anion Gap 15 Basophils # 0.0 Basophils % 0.3 Blood Urea Nitrogen 4 L Calcium Level 8.8 Carbon Dioxide Level 29 Chloride Level 99 Creatinine 0.53 Eosinophils # 0.2 Eosinophils % 2.6 Glucose Level 90 Hematocrit 28.6 L Hemoglobin 9.8 L Lymphocytes # 1.3 Lymphocytes % 19.2 Magnesium Level 2.0 Mean Corpuscular Hemoglobin 33.4 H Mean Corpuscular Hemoglobin Concent 34.4 Mean Corpuscular Volume 97.3 Mean Platelet Volume 10.0 Monocytes # 0.4 Monocytes % 5.8 Neutrophils # 5.0 Neutrophils % 72.1 Nucleated Red Blood Cells # 0.0 Nucleated Red Blood Cells % 0.0 Phosphorus Level 4.4 Platelet Count 222 Potassium Level 3.6 Red Blood Count 2.94 L Red Cell Distribution Width 12.6 Sodium Level 139 White Blood Count 7.0 Medications Medications Current Medications Ondansetron HCl (Zofran Inj) 4 mg Q6H PRN IV NAUSEA AND/OR VOMITING; Start 07/07 at 19:00 Acetaminophen (Tylenol Tab) 650 mg Q6H PRN PO PAIN LEVEL 1-3 OR FEVER Last administered on 07/20/16 01:07; Admin Dose 650 MG; Start 07/07/16 at 19:00 Acetaminophen/ Hydrocodone Bitart ([place] (5/325)) 1 tab Q6H PRN PO MODERATE PAIN LEVEL 4-6 Last administered on 07/23/16 09:49; Admin Dose 1 TAB; Start 07/07/16 at 19:00 Morphine Sulfate (morphine) 2 mg Q4H PRN IV SEVERE PAIN LEVEL 7-10 Last administered on 07/23/16 12:32; Admin Dose 2 MG; Start 07/07/16 at 19:00 Magnesium Hydroxide (Milk Of Mag) 30 ml DAILY PRN PO CONSTIPATION; Start at 19:00 Bisacodyl (Dulcolax) 5 mg DAILY PRN PO CONSTIPATION; Start 07/07/16 at 19:00 Zolpidem Tartrate (Ambien) 5 mg QHS PRN PO SLEEP; Start 07/07/16 at 19:00 Famotidine (Pepcid) 20 mg Q12 PO Last administered on 07/23/16 09:25; Admin Dose 20 MG; Start 07/07/16 at 21:00 Enoxaparin Sodium (Lovenox) 40 mg DAILY SC Last administered on 07/23/16 09:31 ; Admin Dose 40 MG; Start 07/08/16 at 09:00 Amlodipine Besylate (Norvasc) 10 mg DAILY PO Last administered on 07/23/16 09: 24; Admin Dose 10 MG; Start 07/08/16 at 09:00 Atorvastatin Calcium (Lipitor) 20 mg QHS PO Last administered on 07/22/16 20: 30; Admin Dose 20 MG; Start 07/07/16 at 21:00 Hydrochlorothiazide (Hydrochlorothiazide) 25 mg DAILY PO Last administered on 09:25; Admin Dose 25 MG; Start 07/08/16 at 09:00 Losartan Potassium (Cozaar) 25 mg DAILY PO Last administered on 07/23/16 09:25 ; Admin Dose 25 MG; Start 07/08/16 at 09:00 Metoprolol Tartrate (Lopressor) 100 mg BID PO Last administered on 07/23/16 09 :25; Admin Dose 100 MG; Start 07/07/16 at 21:00 Hydralazine HCl (Apresoline) 10 mg Q6H PRN IV SBP>160; Start 07/07/16 at 19:30 Aspirin 81 mg 81 mg DAILY PO Last administered on 07/23/16 09:25; Admin Dose 81 MG; Start 07/10/16 at 09:00 Ceftriaxone Sodium (Rocephin) 50 ml @ 100 mls/hr Q24H IVPB Last administered on 07/22/16 15:36; Admin Dose 100 MLS/HR; Start 07/10/16 at 15:00 Nicotine 1 patch 1 patch DAILY TRANSDERM Last administered on 07/23/16 09:26; Admin Dose 1 PATCH; Start 07/12/16 at 11:00 Lactated Ringer's (Lr) 1,000 ml @ 100 mls/hr Q10H IV Last administered on 07/23 06:17; Admin Dose 100 MLS/HR; Start 07/18/16 at 22:00 PENNY BORREGO NP Jul 23, 2016 15:17
[2016-07-23] MEDS: CEFTRIAXONE 1 GM/50 ML (PMX) 50 ML IVPB SCH (15:26)
[2016-07-23] MEDS: ATORVASTATIN 20 MG TAB PO SCH (20:33)
[2016-07-24] VITALS: BP 98/55; PULSE 66
[2016-07-24] MEDS: morphine 2 MG INJ IV PRN ×4 (01:32→18:11)
[2016-07-24] MEDS: HYDROCODONE/APAP (5/325) TAB PO PRN ×3 (03:20→20:37)
[2016-07-24 05:35] LABS: BASOPHIL # 0.1 10^3/ul (0.0-0.1); BASOPHILS % 0.8 % (0.0-2.0); EOSINOPHILS # 0.2 10^3/ul (0.0-0.5); EOSINOPHILS % 2.9 % (0.0-7.0); HEMATOCRIT 27.3 % (37.0-47.0); HEMOGLOBIN 9.6 g/dl (12.0-16.0); LYMPHOCYTES # 1.5 10^3/ul (0.8-2.9); LYMPHOCYTES % 21.3 % (15.0-51.0); MEAN CORPUSCULAR HEMOGLOBIN 34.1 pg (29.0-33.0); MEAN CORPUSCULAR HGB CONC 35.3 g/dl (32.0-37.0); MEAN CORPUSCULAR VOLUME 96.8 fl (82.0-101.0); MEAN PLATELET VOLUME 9.8 fl (7.4-10.4); MONOCYTE # 0.5 10^3/ul (0.3-0.9); MONOCYTES % 6.5 % (0.0-11.0); NEUTROPHIL # 4.9 10^3/ul (1.6-7.5); NEUTROPHILS % 68.5 % (39.0-77.0); PLATELET COUNT 256 10^3/UL (140-440); RED BLOOD COUNT 2.82 10^6/ul (4.20-5.40); RED CELL DISTRIBUTION WIDTH 12.6 % (11.5-14.5); UNCORRECTED WBC 7.2 10^3/ul (4.8-10.8); WHITE BLOOD COUNT 7.2 10^3/ul (4.8-10.8)
[2016-07-24 06:05] LABS: POTASSIUM 3.8 mmol/L (3.5-5.1)
[2016-07-24 06:07] LABS: CREATININE 0.61 mg/dl (0.44-1.00); MAGNESIUM 1.9 mg/dl (1.7-2.5); PHOSPHORUS 5.2 mg/dl (2.5-4.9)
[2016-07-24 06:08] LABS: CALCIUM 9.1 mg/dl (8.4-10.2)
[2016-07-24 06:32] LABS: CONDITION 1
[2016-07-24 07:25] VITALS: BP 116/61; RESP 16
--- NOTE | 2016-07-24 08:29 | PN ---
Date/Time of Note Date/Time of Note DATE: 07/24/16 TIME: 08:28 Assessment/Plan VTE Prophylaxis VTE Prophylaxis Intervention: SCD's Lines/Catheters IV [facility]ter Type (from [facility] [place] Urinary Cath still in place: No Assessment/Plan Assessment/Plan 1. 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 Peripheral arterial disease status post femoral-femoral bypass graft, postoperative day. 3. Hypertension. 4. Dyslipidemia. - The patient remains stable, continue abx, f/u podiatry/vascular rec-s, pending intraoperative cx and pathology report -continue asa/statin -bp stable Subjective 24 Hr Interval Summary Free Text/Dictation tHE PATIENT WITH NO CHANGE OVERNIGHT AND DOING WELL Exam/Review of Systems Vital Signs Vitals Vital Signs Date Time Temp Pulse Resp B/P Pulse Ox O2 Delivery O2 Flow Rate FiO2 07/24/16 07:25 98.3 85 16 116/61 95 07/23/16 08:15 Nasal Cannula 2.0 Intake and Output 07/23/16 07/23/16 07/24/16 15:00 23:00 07:00 Intake Total 850 ml 920 ml Output Total 1700 ml 400 ml Balance -850 ml 520 ml Results Result Diagram: 07/24/16 0455 07/24/16 0455 Results 24 hrs Laboratory Tests Test 07/24/16 04:55 Anion Gap 12 Basophils # 0.1 Basophils % 0.8 Blood Urea Nitrogen 8 Calcium Level 9.1 Carbon Dioxide Level 31 Chloride Level 99 Creatinine 0.61 Eosinophils # 0.2 Eosinophils % 2.9 Glucose Level 81 Hematocrit 27.3 L Hemoglobin 9.6 L Lymphocytes # 1.5 Lymphocytes % 21.3 Magnesium Level 1.9 Mean Corpuscular Hemoglobin 34.1 H Mean Corpuscular Hemoglobin Concent 35.3 Mean Corpuscular Volume 96.8 Mean Platelet Volume 9.8 Monocytes # 0.5 Monocytes % 6.5 Neutrophils # 4.9 Neutrophils % 68.5 Nucleated Red Blood Cells # 0.0 Nucleated Red Blood Cells % 0.0 Phosphorus Level 5.2 H Platelet Count 256 Potassium Level 3.8 Red Blood Count 2.82 L Red Cell Distribution Width 12.6 Sodium Level 138 White Blood Count 7.2 Medications Medications Current Medications Ondansetron HCl (Zofran Inj) 4 mg Q6H PRN IV NAUSEA AND/OR VOMITING; Start 07/07 at 19:00 Acetaminophen (Tylenol Tab) 650 mg Q6H PRN PO PAIN LEVEL 1-3 OR FEVER Last administered on 07/20/16 01:07; Admin Dose 650 MG; Start 07/07/16 at 19:00 Acetaminophen/ Hydrocodone Bitart ([place] (5/325)) 1 tab Q6H PRN PO MODERATE PAIN LEVEL 4-6 Last administered on 07/24/16 03:20; Admin Dose 1 TAB; Start 07/07/16 at 19:00 Morphine Sulfate (morphine) 2 mg Q4H PRN IV SEVERE PAIN LEVEL 7-10 Last administered on 07/24/16 01:32; Admin Dose 2 MG; Start 07/07/16 at 19:00 Magnesium Hydroxide (Milk Of Mag) 30 ml DAILY PRN PO CONSTIPATION; Start at 19:00 Bisacodyl (Dulcolax) 5 mg DAILY PRN PO CONSTIPATION; Start 07/07/16 at 19:00 Zolpidem Tartrate (Ambien) 5 mg QHS PRN PO SLEEP; Start 07/07/16 at 19:00 Famotidine (Pepcid) 20 mg Q12 PO Last administered on 07/23/16 20:33; Admin Dose 20 MG; Start 07/07/16 at 21:00 Enoxaparin Sodium (Lovenox) 40 mg DAILY SC Last administered on 07/23/16 09:31 ; Admin Dose 40 MG; Start 07/08/16 at 09:00 Amlodipine Besylate (Norvasc) 10 mg DAILY PO Last administered on 07/23/16 09: 24; Admin Dose 10 MG; Start 07/08/16 at 09:00 Atorvastatin Calcium (Lipitor) 20 mg QHS PO Last administered on 07/23/16 20: 33; Admin Dose 20 MG; Start 07/07/16 at 21:00 Hydrochlorothiazide (Hydrochlorothiazide) 25 mg DAILY PO Last administered on 09:25; Admin Dose 25 MG; Start 07/08/16 at 09:00 Losartan Potassium (Cozaar) 25 mg DAILY PO Last administered on 07/23/16 09:25 ; Admin Dose 25 MG; Start 07/08/16 at 09:00 Metoprolol Tartrate (Lopressor) 100 mg BID PO Last administered on 07/23/16 09 :25; Admin Dose 100 MG; Start 07/07/16 at 21:00 Hydralazine HCl (Apresoline) 10 mg Q6H PRN IV SBP>160; Start 07/07/16 at 19:30 Aspirin 81 mg 81 mg DAILY PO Last administered on 07/23/16 09:25; Admin Dose 81 MG; Start 07/10/16 at 09:00 Ceftriaxone Sodium (Rocephin) 50 ml @ 100 mls/hr Q24H IVPB Last administered on 07/23/16 15:26; Admin Dose 100 MLS/HR; Start 07/10/16 at 15:00 Nicotine 1 patch 1 patch DAILY TRANSDERM Last administered on 07/23/16 09:26; Admin Dose 1 PATCH; Start 07/12/16 at 11:00 Lactated Ringer's (Lr) 1,000 ml @ 100 mls/hr Q10H IV Last administered on 07/23 19:37; Admin Dose 100 MLS/HR; Start 07/18/16 at 22:00 DYLAN ONEAL MD Jul 24, 2016 08:29
[2016-07-24] MEDS: LACTATED RINGER'S 1,000 ML IV SCH ×2 (08:34→20:40)
[2016-07-24] MEDS: ASPIRIN (EC) 81 MG TAB PO SCH (08:35)
[2016-07-24] MEDS: AMLODIPINE 10 MG TAB PO SCH (08:35)
[2016-07-24] MEDS: METOPROLOL 100 MG TAB PO SCH ×2 (08:35→20:38)
[2016-07-24] MEDS: FAMOTIDINE 20 MG TAB PO SCH ×2 (08:35→20:37)
[2016-07-24] MEDS: HYDROCHLOROTHIAZIDE 25 MG TAB PO SCH (08:35)
[2016-07-24] MEDS: NICOTINE (21 MG/24 HR) PATCH TRANSDERM SCH (08:36)
[2016-07-24] MEDS: LOSARTAN 25 MG TAB PO SCH (08:39)
[2016-07-24] MEDS: ENOXAPARIN 40 MG/0.4 ML SYG SC SCH (08:43)
[2016-07-24] MEDS ORDERED: CEFT1PIG2 IVPB (13:14)
--- NOTE | 2016-07-24 13:21 | DS ---
Date/Time of Note Date/Time of Note DATE: 07/24/16 TIME: 13:17 Discharge Summary Admission/Discharge Info Admit Date/Time Jul 07, 2016 at 17:26 Discharge Date/Time Final Diagnosis 1. 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 Peripheral vascular disease, s/p S/P left iliac artery stent placement on . S/P right femoral-femoral bypass on 07/18/2016 3. Essential hypertension. controlled 4. Dyslipidemia. Continue statins. 5. Nicotine use. advise cessation. 6. Normocytic anemia, stable Patient Condition: Stable Hx of Present Illness This is a 65-year-old female with past medical history of essential hypertension, dyslipidemia and sciatica who came to the emergency room with a chief complaint of worsening right foot wound. The patient was evaluated in the ER on 07/02/2016 with the same complaints, and the patient was discharged home on antibiotics. The patient's wound was not getting better, and hence the patient came back to the emergency room today. The patient had this wound between her right 3rd and 4th toe that started developing as a blister with subsequent erythema and pain. The patient denied any obvious injuries to the area of interest. The patient denied any insect bites or spider bites. However , the patient verbalized that she has been around "in a place where there are spiders." The patient denied any associated fevers or chills. The patient verbalized right foot pain and numbness. There was no reported pruritus. In the emergency room, the patient was afebrile. She was treated with IV vancomycin and IV Zosyn. The patient underwent a right foot x-ray in the emergency room that showed soft-tissue swelling of the distal 4th and 5th digits with a nondisplaced closed fracture of the 5th distal phalangeal tuft without intra-articular extension. Hospital Course SUBJECTIVE: No acute changes overnight. The patient is sleeping, looks comfortable, no fevers. ANTIMICROBIALS: Rocephin. MICROBIOLOGY: Wound culture on admission grew oxacillin-sensitive Staphylococcus aureus. PHYSICAL EXAMINATION: GENERAL: Well-developed, elderly woman who is in no distress. HEENT: Head atraumatic, normocephalic. NECK: Supple. Trachea midline. CHEST: Rise symmetrical. Breath sounds clear. HEART: S1, S2. ABDOMEN: Soft, bowel tones present. EXTREMITIES: With right femoral dressing intact. ASSESSMENT: 1. 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 Peripheral arterial disease status post femoral-femoral bypass graft, postoperative day. 3. Hypertension. 4. Dyslipidemia. PLAN: The patient remains stable, continue abx, f/u podiatry/vascular rec-s, pending intraoperative cx and pathology report DW staff Home Meds Active Scripts Ceftriaxone Sod* (Rocephin* 1GM/50ML (PMX)) 1 Gm/50 Ml Iv.soln., 1 GM IVPB Q24H for 42 Days, EA Prov:REINALDO PILLAI MD 07/24/16 Cephalexin* (Keflex*) 500 Mg Capsule, 500 MG PO QID for 7 Days, CAP Prov:DAMARIS MOSER PA-C 07/02/16 Sulfamethoxazole-Trimethoprim* (Bactrim* DS) 800-160 Mg Tab, 1 TAB PO BID for 10 Days, TAB Prov:DAMARIS MOSER PA-C 07/02/16 Tramadol HCl (Tramadol HCl) 50 Mg Tablet, 50 MG PO Q4 Y for PAIN, #20 TAB Prov:RADHA WITT MD 06/04/16 Reported Medications Hydrochlorothiazide* (Hydrochlorothiazide*) 25 Mg Tab, 25 MG PO DAILY, #30 TAB 07/07/16 Atorvastatin Calcium* (Atorvastatin Calcium*) 20 Mg Tablet, 20 MG PO QHS, #30 TAB 07/07/16 Losartan Potassium* (Cozaar*) 25 Mg Tablet, 25 MG PO DAILY, #30 TAB 07/07/16 Amlodipine Besylate* (Amlodipine Besylate*) 10 Mg Tablet, 10 MG PO DAILY, #30 TAB 07/07/16 Metoprolol Tartrate* (Lopressor*) 100 Mg Tablet, 100 MG PO BID, #60 TAB 07/07/16 Follow-up Plan home health with wound care and IV antibiotics Dr. Ratliff one week PCP one week Home wound VAC Pending Labs Laboratory Tests Test 07/24/16 04:55 Anion Gap 12 (8-16) Basophils # 0.110^3/ul (0.0-0.1) Basophils % 0.8% (0.0-2.0) Blood Urea Nitrogen 8mg/dl (7-20) Calcium Level 9.1mg/dl (8.4-10.2) Carbon Dioxide Level 31mmol/L (21-31) Chloride Level 99mmol/L (97-110) Creatinine 0.61mg/dl (0.44-1.00) Eosinophils # 0.210^3/ul (0.0-0.5) Eosinophils % 2.9% (0.0-7.0) Glucose Level 81mg/dl (70-220) Hematocrit 27.3% (37.0-47.0) Hemoglobin 9.6g/dl (12.0-16.0) Lymphocytes # 1.510^3/ul (0.8-2.9) Lymphocytes % 21.3% (15.0-51.0) Magnesium Level 1.9mg/dl (1.7-2.5) Mean Corpuscular Hemoglobin 34.1pg (29.0-33.0) Mean Corpuscular Hemoglobin Concent 35.3g/dl (32.0-37.0) Mean Corpuscular Volume 96.8fl (82.0-101.0) Mean Platelet Volume 9.8fl (7.4-10.4) Monocytes # 0.510^3/ul (0.3-0.9) Monocytes % 6.5% (0.0-11.0) Neutrophils # 4.910^3/ul (1.6-7.5) Neutrophils % 68.5% (39.0-77.0) Nucleated Red Blood Cells # 0.010^3/ul (0.0-0.0) Nucleated Red Blood Cells % 0.0/100WBC (0.0-0.0) Phosphorus Level 5.2mg/dl (2.5-4.9) Platelet Count 08404^3/UL (140-440) Potassium Level 3.8mmol/L (3.5-5.1) Red Blood Count 2.8210^6/ul (4.20-5.40) Red Cell Distribution Width 12.6% (11.5-14.5) Sodium Level 138mmol/L (135-144) White Blood Count 7.210^3/ul (4.8-10.8) REINALDO PILLAI MD Jul 24, 2016 13:21
--- NOTE | 2016-07-24 13:31 | CONS ---
Date/Time of Note Date/Time of Note DATE: 07/24/16 TIME: 13:30 Assessment/Plan Assessment/Plan Chief Complaint/Hosp Course SUBJECTIVE: No acute changes overnight. The patient is alert, eating lunch, looks comfortable, no fevers. ANTIMICROBIALS: Rocephin. MICROBIOLOGY: Wound culture on admission grew oxacillin-sensitive Staphylococcus aureus. PHYSICAL EXAMINATION: GENERAL: Well-developed, elderly woman who is in no distress. HEENT: Head atraumatic, normocephalic. NECK: Supple. Trachea midline. CHEST: Rise symmetrical. Breath sounds clear. HEART: S1, S2. ABDOMEN: Soft, bowel tones present. EXTREMITIES: With right femoral dressing intact. ASSESSMENT: 1. 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 Peripheral arterial disease status post femoral-femoral bypass graft, postoperative day. 3. Hypertension. 4. Dyslipidemia. PLAN: Remains stable, as per MEGHAN Ratliff will keep on abx for 6 weeks, consider PICC DW staff DW Dr Cagle Problems: Consultation Date/Type/Reason Admit Date/Time Jul 07, 2016 at 17:26 Type of Consultation: ID Exam/Review of Systems Vital Signs Vitals Vital Signs Date Time Temp Pulse Resp B/P Pulse Ox O2 Delivery O2 Flow Rate FiO2 07/24/16 07:25 98.3 85 16 116/61 95 07/23/16 08:15 Nasal Cannula 2.0 Intake and Output 07/23/16 07/23/16 07/24/16 15:00 23:00 07:00 Intake Total 850 ml 920 ml Output Total 1700 ml 400 ml Balance -850 ml 520 ml Results Result Diagram: 07/24/16 0455 07/24/16 0455 Results 24 hrs Laboratory Tests Test 07/24/16 04:55 Anion Gap 12 Basophils # 0.1 Basophils % 0.8 Blood Urea Nitrogen 8 Calcium Level 9.1 Carbon Dioxide Level 31 Chloride Level 99 Creatinine 0.61 Eosinophils # 0.2 Eosinophils % 2.9 Glucose Level 81 Hematocrit 27.3 L Hemoglobin 9.6 L Lymphocytes # 1.5 Lymphocytes % 21.3 Magnesium Level 1.9 Mean Corpuscular Hemoglobin 34.1 H Mean Corpuscular Hemoglobin Concent 35.3 Mean Corpuscular Volume 96.8 Mean Platelet Volume 9.8 Monocytes # 0.5 Monocytes % 6.5 Neutrophils # 4.9 Neutrophils % 68.5 Nucleated Red Blood Cells # 0.0 Nucleated Red Blood Cells % 0.0 Phosphorus Level 5.2 H Platelet Count 256 Potassium Level 3.8 Red Blood Count 2.82 L Red Cell Distribution Width 12.6 Sodium Level 138 White Blood Count 7.2 Medications Medications Current Medications Ondansetron HCl (Zofran Inj) 4 mg Q6H PRN IV NAUSEA AND/OR VOMITING; Start 07/07 at 19:00 Acetaminophen (Tylenol Tab) 650 mg Q6H PRN PO PAIN LEVEL 1-3 OR FEVER Last administered on 07/20/16 01:07; Admin Dose 650 MG; Start 07/07/16 at 19:00 Acetaminophen/ Hydrocodone Bitart ([place] (5/325)) 1 tab Q6H PRN PO MODERATE PAIN LEVEL 4-6 Last administered on 07/24/16 11:09; Admin Dose 1 TAB; Start 07/07/16 at 19:00 Morphine Sulfate (morphine) 2 mg Q4H PRN IV SEVERE PAIN LEVEL 7-10 Last administered on 07/24/16 08:36; Admin Dose 2 MG; Start 07/07/16 at 19:00 Magnesium Hydroxide (Milk Of Mag) 30 ml DAILY PRN PO CONSTIPATION; Start at 19:00 Bisacodyl (Dulcolax) 5 mg DAILY PRN PO CONSTIPATION; Start 07/07/16 at 19:00 Zolpidem Tartrate (Ambien) 5 mg QHS PRN PO SLEEP; Start 07/07/16 at 19:00 Famotidine (Pepcid) 20 mg Q12 PO Last administered on 07/24/16 08:35; Admin Dose 20 MG; Start 07/07/16 at 21:00 Enoxaparin Sodium (Lovenox) 40 mg DAILY SC Last administered on 07/24/16 08:43 ; Admin Dose 40 MG; Start 07/08/16 at 09:00 Amlodipine Besylate (Norvasc) 10 mg DAILY PO Last administered on 07/24/16 08: 35; Admin Dose 10 MG; Start 07/08/16 at 09:00 Atorvastatin Calcium (Lipitor) 20 mg QHS PO Last administered on 07/23/16 20: 33; Admin Dose 20 MG; Start 07/07/16 at 21:00 Hydrochlorothiazide (Hydrochlorothiazide) 25 mg DAILY PO Last administered on 08:35; Admin Dose 25 MG; Start 07/08/16 at 09:00 Losartan Potassium (Cozaar) 25 mg DAILY PO Last administered on 07/24/16 08:39 ; Admin Dose 25 MG; Start 07/08/16 at 09:00 Metoprolol Tartrate (Lopressor) 100 mg BID PO Last administered on 07/24/16 08 :35; Admin Dose 100 MG; Start 07/07/16 at 21:00 Hydralazine HCl (Apresoline) 10 mg Q6H PRN IV SBP>160; Start 07/07/16 at 19:30 Aspirin 81 mg 81 mg DAILY PO Last administered on 07/24/16 08:35; Admin Dose 81 MG; Start 07/10/16 at 09:00 Ceftriaxone Sodium (Rocephin) 50 ml @ 100 mls/hr Q24H IVPB Last administered on 07/23/16 15:26; Admin Dose 100 MLS/HR; Start 07/10/16 at 15:00 Nicotine 1 patch 1 patch DAILY TRANSDERM Last administered on 07/24/16 08:36; Admin Dose 1 PATCH; Start 07/12/16 at 11:00 Lactated Ringer's (Lr) 1,000 ml @ 100 mls/hr Q10H IV Last administered on 07/24 08:34; Admin Dose 100 MLS/HR; Start 07/18/16 at 22:00 PENNY BORREGO NP Jul 24, 2016 13:31
[2016-07-24] MEDS: CEFTRIAXONE 1 GM/50 ML (PMX) 50 ML IVPB SCH (15:08)
[2016-07-24 20:01] VITALS: BP 91/50; RESP 18
[2016-07-24] MEDS: ATORVASTATIN 20 MG TAB PO SCH (20:36)
[2016-07-25] MEDS: LACTATED RINGER'S 1,000 ML IV SCH ×2 (04:00→07:21)
[2016-07-25] MEDS: morphine 2 MG INJ IV PRN ×4 (05:12→20:25)
[2016-07-25 07:18] VITALS: BP 107/56; RESP 16
[2016-07-25] MEDS: ASPIRIN (EC) 81 MG TAB PO SCH (09:58)
[2016-07-25] MEDS: FAMOTIDINE 20 MG TAB PO SCH ×2 (09:58→20:24)
[2016-07-25] MEDS: METOPROLOL 100 MG TAB PO SCH ×2 (09:59→20:31)
[2016-07-25] MEDS: HYDROCHLOROTHIAZIDE 25 MG TAB PO SCH (10:00)
[2016-07-25] MEDS: LOSARTAN 25 MG TAB PO SCH (10:00)
[2016-07-25] MEDS: NICOTINE (21 MG/24 HR) PATCH TRANSDERM SCH (10:01)
[2016-07-25] MEDS: AMLODIPINE 10 MG TAB PO SCH (10:06)
--- NOTE | 2016-07-25 11:07 | RADRPT ---
PROCEDURE: XR Chest. CLINICAL INDICATION: Check PICC line position. TECHNIQUE: Single frontal view. COMPARISON: No prior study is available for comparison. FINDINGS: There is a left arm PICC line with the tip in the lower superior vena cava. The lungs are clear. The heart size is normal. There is no pleural effusion. There is no pneumothorax. IMPRESSION: 1. Satisfactory position of left arm PICC line. 2. Otherwise normal chest radiograph. RPTAT: QQ .Kendrick Villarreal MD, MD Date Time Electronically viewed and signed by .Kendrick Villarreal MD, MD on 07/25/2016 11:06 .R/
--- NOTE | 2016-07-25 11:07 | RADRPT ---
PROCEDURE: Ultrasound guidance for placement of needle in left upper extremity vein. CLINICAL INDICATION: Venous access. TECHNIQUE: Limited sonography of the left upper extremity was performed. Ultrasound images were recorded and s tored in the patient's medical record. COMPARISON: None. FINDINGS: The ultrasound images demonstrate a patent left upper extremity vein. The PICC line was inserted by the PICC line nurse. IMPRESSION: 1. Ultrasound guidance for a needle placement in a left upper extremity vein. 2. The left upper extremity vein is patent. RPTAT: QQ .Kendrick Villarreal MD, MD Date Time Electronically viewed and signed by .Kendrick Villarreal MD, MD on 07/25/2016 11:07 .R/
[2016-07-25] MEDS ORDERED: SOD CHLORIDE 0.9% 100 ML ONE (11:22)
[2016-07-25] MEDS ORDERED: LIDOCAINE 1% (MPF) 5 ML VIAL ONE (11:22)
[2016-07-25] MEDS: ENOXAPARIN 40 MG/0.4 ML SYG SC SCH (11:40)
--- NOTE | 2016-07-25 11:48 | CONS ---
Date/Time of Note Date/Time of Note DATE: 07/25/16 TIME: 11:48 Assessment/Plan Assessment/Plan Chief Complaint/Hosp Course SUBJECTIVE: No acute changes overnight. The patient is alert, eating lunch, looks comfortable, no fevers. ANTIMICROBIALS: Rocephin. MICROBIOLOGY: Wound culture on admission grew oxacillin-sensitive Staphylococcus aureus. PHYSICAL EXAMINATION: GENERAL: Well-developed, elderly woman who is in no distress. HEENT: Head atraumatic, normocephalic. NECK: Supple. Trachea midline. CHEST: Rise symmetrical. Breath sounds clear. HEART: S1, S2. ABDOMEN: Soft, bowel tones present. EXTREMITIES: With right femoral dressing intact. ASSESSMENT: 1. 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 Peripheral arterial disease status post femoral-femoral bypass graft, postoperative day. 3. Hypertension. 4. Dyslipidemia. PLAN: Remains stable, as per DW Dr Ratliff will keep on abx for 6 weeks, pending PICC DW staff Problems: Consultation Date/Type/Reason Admit Date/Time Jul 07, 2016 at 17:26 Type of Consultation: ID Exam/Review of Systems Vital Signs Vitals Vital Signs Date Time Temp Pulse Resp B/P Pulse Ox O2 Delivery O2 Flow Rate FiO2 07/25/16 07:18 98.1 92 16 107/56 94 07/23/16 08:15 Nasal Cannula 2.0 Intake and Output 07/24/16 07/24/16 07/25/16 15:00 23:00 07:00 Intake Total 1530 ml 1250 ml Output Total 800 ml Balance 730 ml 1250 ml Results Result Diagram: 07/24/16 0455 07/24/16 0455 Medications Medications Current Medications Ondansetron HCl (Zofran Inj) 4 mg Q6H PRN IV NAUSEA AND/OR VOMITING; Start 07/07 at 19:00 Acetaminophen (Tylenol Tab) 650 mg Q6H PRN PO PAIN LEVEL 1-3 OR FEVER Last administered on 07/20/16 01:07; Admin Dose 650 MG; Start 07/07/16 at 19:00 Acetaminophen/ Hydrocodone Bitart ([place] (5/325)) 1 tab Q6H PRN PO MODERATE PAIN LEVEL 4-6 Last administered on 07/24/16 20:37; Admin Dose 1 TAB; Start 07/07/16 at 19:00 Morphine Sulfate (morphine) 2 mg Q4H PRN IV SEVERE PAIN LEVEL 7-10 Last administered on 07/25/16 09:55; Admin Dose 2 MG; Start 07/07/16 at 19:00 Magnesium Hydroxide (Milk Of Mag) 30 ml DAILY PRN PO CONSTIPATION; Start at 19:00 Bisacodyl (Dulcolax) 5 mg DAILY PRN PO CONSTIPATION; Start 07/07/16 at 19:00 Zolpidem Tartrate (Ambien) 5 mg QHS PRN PO SLEEP; Start 07/07/16 at 19:00 Famotidine (Pepcid) 20 mg Q12 PO Last administered on 07/25/16 09:58; Admin Dose 20 MG; Start 07/07/16 at 21:00 Enoxaparin Sodium (Lovenox) 40 mg DAILY SC Last administered on 07/25/16 11:40 ; Admin Dose 40 MG; Start 07/08/16 at 09:00 Amlodipine Besylate (Norvasc) 10 mg DAILY PO Last administered on 07/25/16 10: 06; Admin Dose 10 MG; Start 07/08/16 at 09:00 Atorvastatin Calcium (Lipitor) 20 mg QHS PO Last administered on 07/24/16 20: 36; Admin Dose 20 MG; Start 07/07/16 at 21:00 Hydrochlorothiazide (Hydrochlorothiazide) 25 mg DAILY PO Last administered on 10:00; Admin Dose 25 MG; Start 07/08/16 at 09:00 Losartan Potassium (Cozaar) 25 mg DAILY PO Last administered on 07/25/16 10:00 ; Admin Dose 25 MG; Start 07/08/16 at 09:00 Metoprolol Tartrate (Lopressor) 100 mg BID PO Last administered on 07/25/16 09 :59; Admin Dose 100 MG; Start 07/07/16 at 21:00 Hydralazine HCl (Apresoline) 10 mg Q6H PRN IV SBP>160; Start 07/07/16 at 19:30 Aspirin 81 mg 81 mg DAILY PO Last administered on 07/25/16 09:58; Admin Dose 81 MG; Start 07/10/16 at 09:00 Ceftriaxone Sodium (Rocephin) 50 ml @ 100 mls/hr Q24H IVPB Last administered on 07/24/16 15:08; Admin Dose 100 MLS/HR; Start 07/10/16 at 15:00 Nicotine 1 patch 1 patch DAILY TRANSDERM Last administered on 07/25/16 10:01; Admin Dose 1 PATCH; Start 07/12/16 at 11:00 Lactated Ringer's (Lr) 1,000 ml @ 100 mls/hr Q10H IV Last administered on 07/25 07:21; Admin Dose 100 MLS/HR; Start 07/18/16 at 22:00 IV Flush (NS 10 ml) 10 ml PRN PRN IV IV PROTOCOL; Start 07/25/16 at 11:30 PENNY BORREGO NP Jul 25, 2016 11:48
--- NOTE | 2016-07-25 13:49 | DS ---
Date/Time of Note Date/Time of Note DATE: 07/25/16 TIME: 13:40 Discharge Summary Admission/Discharge Info Admit Date/Time Jul 07, 2016 at 17:26 Discharge Date/Time Final Diagnosis 1. 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 Peripheral vascular disease, s/p S/P left iliac artery stent placement on . S/P right femoral-femoral bypass on 07/18/2016 3. Essential hypertension. controlled 4. Dyslipidemia. Continue statins. 5. Nicotine use. advise cessation. 6. Normocytic anemia, stable Patient Condition: Stable Procedures OPERATION PERFORMED on 07/15/2016 1. Left iliac artery stent placement, 9 x 57 mm stent. 2. Abdominal aortogram. 3. Bilateral lower extremity runoff. 4. Catheter introduction into the abdominal aorta. 5. Ultrasound guidance into the central artery. 6. Interpretation and supervision of the abdominal aortogram. 7. Interpretation and supervision of the stent placement. 8. Fluoroscopy. PROCEDURES PERFORMED on 07/21/2016 1. Right foot incision and drainage of hallux. 2. Right foot 3rd and 4th ray amputation. 3. Application of wound VAC Hx of Present Illness This is a 65-year-old female with past medical history of essential hypertension, dyslipidemia and sciatica who came to the emergency room with a chief complaint of worsening right foot wound. The patient was evaluated in the ER on 07/02/2016 with the same complaints, and the patient was discharged home on antibiotics. The patient's wound was not getting better, and hence the patient came back to the emergency room today. The patient had this wound between her right 3rd and 4th toe that started developing as a blister with subsequent erythema and pain. The patient denied any obvious injuries to the area of interest. The patient denied any insect bites or spider bites. However , the patient verbalized that she has been around "in a place where there are spiders." The patient denied any associated fevers or chills. The patient verbalized right foot pain and numbness. There was no reported pruritus. In the emergency room, the patient was afebrile. She was treated with IV vancomycin and IV Zosyn. The patient underwent a right foot x-ray in the emergency room that showed soft-tissue swelling of the distal 4th and 5th digits with a nondisplaced closed fracture of the 5th distal phalangeal tuft without intra-articular extension. Hospital Course Patient had Left iliac artery stent placement, 9 x 57 mm stent on 07/15/2016, then foot incision and drainage of hallux and right foot 3rd and 4th ray amputation on 07/21/2016. She got PICC line inserted on 07/24/2016. Patient is having wound Vac on right foot. She will be discharged home with home health for wound care/wound VAC and iv rocephin for 6 weeks. Home Meds Active Scripts Ceftriaxone Sod* (Rocephin* 1GM/50ML (PMX)) 1 Gm/50 Ml Iv.soln., 1 GM IVPB Q24H for 42 Days, EA Prov:REINALDO PILLAI MD 07/24/16 Cephalexin* (Keflex*) 500 Mg Capsule, 500 MG PO QID for 7 Days, CAP Prov:DAMARIS MOSERC 07/02/16 Sulfamethoxazole-Trimethoprim* (Bactrim* DS) 800-160 Mg Tab, 1 TAB PO BID for 10 Days, TAB Prov:DAMARIS MOSER PA-C 07/02/16 Tramadol HCl (Tramadol HCl) 50 Mg Tablet, 50 MG PO Q4 Y for PAIN, #20 TAB Prov:RADHA WITT MD 06/04/16 Reported Medications Hydrochlorothiazide* (Hydrochlorothiazide*) 25 Mg Tab, 25 MG PO DAILY, #30 TAB 07/07/16 Atorvastatin Calcium* (Atorvastatin Calcium*) 20 Mg Tablet, 20 MG PO QHS, #30 TAB 07/07/16 Losartan Potassium* (Cozaar*) 25 Mg Tablet, 25 MG PO DAILY, #30 TAB 07/07/16 Amlodipine Besylate* (Amlodipine Besylate*) 10 Mg Tablet, 10 MG PO DAILY, #30 TAB 07/07/16 Metoprolol Tartrate* (Lopressor*) 100 Mg Tablet, 100 MG PO BID, #60 TAB 07/07/16 Follow-up Plan home health with wound care and IV antibiotics Dr. Ratliff one week PCP one week Home wound VAC REINALDO PILLAI MD Jul 25, 2016 13:49
[2016-07-25] MEDS: CEFTRIAXONE 1 GM/50 ML (PMX) 50 ML IVPB SCH (15:16)
--- NOTE | 2016-07-25 16:17 | PN ---
Date/Time of Note Date/Time of Note DATE: 07/25/16 TIME: 16:16 Assessment/Plan VTE Prophylaxis VTE Prophylaxis Intervention: SCD's Lines/Catheters IV Catheter Type (from Nrsg): PICC Line Central line still needed: No Urinary Cath still in place: No Assessment/Plan Assessment/Plan 1. 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 Peripheral arterial disease status post femoral-femoral bypass graft, postoperative day. 3. Hypertension. 4. Dyslipidemia. - The patient remains stable, continue abx, f/u podiatry/vascular rec-s -continue asa/statin -bp low, will stop amlodpine Subjective 24 Hr Interval Summary Free Text/Dictation The patint is imprving Exam/Review of Systems Vital Signs Vitals Vital Signs Date Time Temp Pulse Resp B/P Pulse Ox O2 Delivery O2 Flow Rate FiO2 07/25/16 07:18 98.1 92 16 107/56 94 07/23/16 08:15 Nasal Cannula 2.0 Intake and Output 07/24/16 07/24/16 07/25/16 15:00 23:00 07:00 Intake Total 1530 ml 1250 ml Output Total 800 ml Balance 730 ml 1250 ml Results Result Diagram: 07/24/16 0455 07/24/16 0455 Medications Medications Current Medications Ondansetron HCl (Zofran Inj) 4 mg Q6H PRN IV NAUSEA AND/OR VOMITING; Start 07/07 at 19:00 Acetaminophen (Tylenol Tab) 650 mg Q6H PRN PO PAIN LEVEL 1-3 OR FEVER Last administered on 07/20/16 01:07; Admin Dose 650 MG; Start 07/07/16 at 19:00 Acetaminophen/ Hydrocodone Bitart ([place] (5/325)) 1 tab Q6H PRN PO MODERATE PAIN LEVEL 4-6 Last administered on 07/24/16 20:37; Admin Dose 1 TAB; Start 07/07/16 at 19:00 Morphine Sulfate (morphine) 2 mg Q4H PRN IV SEVERE PAIN LEVEL 7-10 Last administered on 07/25/16 14:04; Admin Dose 2 MG; Start 07/07/16 at 19:00 Magnesium Hydroxide (Milk Of Mag) 30 ml DAILY PRN PO CONSTIPATION; Start at 19:00 Bisacodyl (Dulcolax) 5 mg DAILY PRN PO CONSTIPATION; Start 07/07/16 at 19:00 Zolpidem Tartrate (Ambien) 5 mg QHS PRN PO SLEEP; Start 07/07/16 at 19:00 Famotidine (Pepcid) 20 mg Q12 PO Last administered on 07/25/16 09:58; Admin Dose 20 MG; Start 07/07/16 at 21:00 Enoxaparin Sodium (Lovenox) 40 mg DAILY SC Last administered on 07/25/16 11:40 ; Admin Dose 40 MG; Start 07/08/16 at 09:00 Amlodipine Besylate (Norvasc) 10 mg DAILY PO Last administered on 07/25/16 10: 06; Admin Dose 10 MG; Start 07/08/16 at 09:00 Atorvastatin Calcium (Lipitor) 20 mg QHS PO Last administered on 07/24/16 20: 36; Admin Dose 20 MG; Start 07/07/16 at 21:00 Hydrochlorothiazide (Hydrochlorothiazide) 25 mg DAILY PO Last administered on 10:00; Admin Dose 25 MG; Start 07/08/16 at 09:00 Losartan Potassium (Cozaar) 25 mg DAILY PO Last administered on 07/25/16 10:00 ; Admin Dose 25 MG; Start 07/08/16 at 09:00 Metoprolol Tartrate (Lopressor) 100 mg BID PO Last administered on 07/25/16 09 :59; Admin Dose 100 MG; Start 07/07/16 at 21:00 Hydralazine HCl (Apresoline) 10 mg Q6H PRN IV SBP>160; Start 07/07/16 at 19:30 Aspirin 81 mg 81 mg DAILY PO Last administered on 07/25/16 09:58; Admin Dose 81 MG; Start 07/10/16 at 09:00 Ceftriaxone Sodium (Rocephin) 50 ml @ 100 mls/hr Q24H IVPB Last administered on 07/25/16 15:16; Admin Dose 100 MLS/HR; Start 07/10/16 at 15:00 Nicotine 1 patch 1 patch DAILY TRANSDERM Last administered on 07/25/16 10:01; Admin Dose 1 PATCH; Start 07/12/16 at 11:00 Lactated Ringer's (Lr) 1,000 ml @ 100 mls/hr Q10H IV Last administered on 07/25t 07:21; Admin Dose 100 MLS/HR; Start 07/18/16 at 22:00 IV Flush (NS 10 ml) 10 ml PRN PRN IV IV PROTOCOL; Start 07/25/16 at 11:30 DYLAN ONEAL MD Jul 25, 2016 16:17
[2016-07-25] MEDS: HYDROCODONE/APAP (5/325) TAB PO PRN (19:01)
[2016-07-25] MEDS: ATORVASTATIN 20 MG TAB PO SCH (20:24)
[2016-07-25 20:30] VITALS: BP 102/55; RESP 18
[2016-07-25] MEDS: NYSTATIN 30 GM POWDER BTL TOP SCH (21:00)
[2016-07-26] MEDS: morphine 2 MG INJ IV PRN (04:31)
[2016-07-26 07:25] VITALS: BP 114/57; RESP 18
[2016-07-26] MEDS: HYDROCODONE/APAP (5/325) TAB PO PRN ×2 (07:53→14:16)
--- NOTE | 2016-07-26 08:26 | PN ---
Date/Time of Note Date/Time of Note DATE: 07/26/16 TIME: 08:24 Assessment/Plan VTE Prophylaxis VTE Prophylaxis Intervention: SCD's Lines/Catheters IV Catheter Type (from Nrsg): PICC Line Central line still needed: No Urinary Cath still in place: No Assessment/Plan Assessment/Plan 1. 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 Peripheral arterial disease status post femoral-femoral bypass graft, postoperative day. 3. Hypertension. 4. Dyslipidemia. - The patient remains stable, continue abx, f/u podiatry/vascular rec-s -continue asa/statin -s/p low bp so stopped amlodpine Subjective 24 Hr Interval Summary Free Text/Dictation The patietn with no change and stable Exam/Review of Systems Vital Signs Vitals Vital Signs Date Time Temp Pulse Resp B/P Pulse Ox O2 Delivery O2 Flow Rate FiO2 07/26/16 07:25 97.9 88 18 114/57 94 07/23/16 08:15 Nasal Cannula 2.0 Intake and Output 07/25/16 07/25/16 07/26/16 15:00 23:00 07:00 Intake Total 1330 ml 200 ml Output Total 700 ml Balance 630 ml 200 ml Results Result Diagram: 07/24/16 0455 07/24/16 0455 Medications Medications Current Medications Ondansetron HCl (Zofran Inj) 4 mg Q6H PRN IV NAUSEA AND/OR VOMITING; Start 07/07 at 19:00 Acetaminophen (Tylenol Tab) 650 mg Q6H PRN PO PAIN LEVEL 1-3 OR FEVER Last administered on 07/20/16 01:07; Admin Dose 650 MG; Start 07/07/16 at 19:00 Acetaminophen/ Hydrocodone Bitart ([place] (5/325)) 1 tab Q6H PRN PO MODERATE PAIN LEVEL 4-6 Last administered on 07/26/16 07:53; Admin Dose 1 TAB; Start 07/07/16 at 19:00 Morphine Sulfate (morphine) 2 mg Q4H PRN IV SEVERE PAIN LEVEL 7-10 Last administered on 07/26/16 04:31; Admin Dose 2 MG; Start 07/07/16 at 19:00 Magnesium Hydroxide (Milk Of Mag) 30 ml DAILY PRN PO CONSTIPATION; Start at 19:00 Bisacodyl (Dulcolax) 5 mg DAILY PRN PO CONSTIPATION; Start 07/07/16 at 19:00 Zolpidem Tartrate (Ambien) 5 mg QHS PRN PO SLEEP; Start 07/07/16 at 19:00 Famotidine (Pepcid) 20 mg Q12 PO Last administered on 07/25/16 20:24; Admin Dose 20 MG; Start 07/07/16 at 21:00 Enoxaparin Sodium (Lovenox) 40 mg DAILY SC Last administered on 07/25/16 11:40 ; Admin Dose 40 MG; Start 07/08/16 at 09:00 Atorvastatin Calcium (Lipitor) 20 mg QHS PO Last administered on 07/25/16 20: 24; Admin Dose 20 MG; Start 07/07/16 at 21:00 Hydrochlorothiazide (Hydrochlorothiazide) 25 mg DAILY PO Last administered on 10:00; Admin Dose 25 MG; Start 07/08/16 at 09:00 Losartan Potassium (Cozaar) 25 mg DAILY PO Last administered on 07/25/16 10:00 ; Admin Dose 25 MG; Start 07/08/16 at 09:00 Metoprolol Tartrate (Lopressor) 100 mg BID PO Last administered on 07/25/16 09 :59; Admin Dose 100 MG; Start 07/07/16 at 21:00 Hydralazine HCl (Apresoline) 10 mg Q6H PRN IV SBP>160; Start 07/07/16 at 19:30 Aspirin 81 mg 81 mg DAILY PO Last administered on 07/25/16 09:58; Admin Dose 81 MG; Start 07/10/16 at 09:00 Ceftriaxone Sodium (Rocephin) 50 ml @ 100 mls/hr Q24H IVPB Last administered on 07/25/16 15:16; Admin Dose 100 MLS/HR; Start 07/10/16 at 15:00 Nicotine (Nicoderm 21 Mg/ 24hr) 1 patch DAILY TRANSDERM Last administered on 10:01; Admin Dose 1 PATCH; Start 07/12/16 at 11:00 IV Flush (NS 10 ml) 10 ml PRN PRN IV IV PROTOCOL; Start 07/25/16 at 11:30 Nystatin (Nystatin Powder) 1 applic BID TOP Last administered on 07/25/16t 21: 00; Admin Dose 1 APPLIC; Start 07/25/16 at 21:00 DYLAN ONEAL MD Jul 26, 2016 08:26
[2016-07-26] MEDS: LOSARTAN 25 MG TAB PO SCH (09:00)
[2016-07-26] MEDS: HYDROCHLOROTHIAZIDE 25 MG TAB PO SCH (09:00)
[2016-07-26] MEDS: FAMOTIDINE 20 MG TAB PO SCH (09:06)
[2016-07-26] MEDS: ASPIRIN (EC) 81 MG TAB PO SCH (09:06)
[2016-07-26] MEDS: METOPROLOL 100 MG TAB PO SCH (09:07)
[2016-07-26] MEDS: NICOTINE (21 MG/24 HR) PATCH TRANSDERM SCH (09:09)
[2016-07-26] MEDS: NYSTATIN 30 GM POWDER BTL TOP SCH (09:09)
[2016-07-26] MEDS: ENOXAPARIN 40 MG/0.4 ML SYG SC SCH (09:13)
--- NOTE | 2016-07-26 10:16 | PN ---
Date/Time of Note Date/Time of Note DATE: 07/26/16 TIME: 10:13 Assessment/Plan VTE Prophylaxis VTE Prophylaxis Intervention: LMWH Lines/Catheters IV Catheter Type (from [facility]): PICC Line Central line still needed: Yes Urinary Cath still in place: No Assessment/Plan Chief Complaint/Hosp Course assessment/Plan 1. right foot gangrene of toes, s/p I&D and 3rd/4th ray amputation, on wound vac , follow up with podiatry. Wound VAC has been delivered home patient states she needs to contact the [facility] to set up home health for her probably tomorrow. Total of 6 weeks of antibiotics 2. Peripheral vascular disease, s/p S/P left iliac artery stent placement on . S/P right femoral-femoral bypass on 07/18/2016 3. Essential hypertension. controlled 4. Dyslipidemia. Continue statins. 5. Nicotine use. Will provide the patient with a nicotine patch. Will advise cessation. 6. DVT prophylaxis. Subcutaneous Lovenox. 7. Gastrointestinal prophylaxis. Histamine 2 receptor blockers. 8. Normocytic anemia, stable 9. Hypokalemia, corrected 10. Hypomagnesemia, corrected Discharge home today. Problems: Subjective 24 Hr Interval Summary Free Text/Dictation Patient doing well this morning anticipating discharge home Denies any pain shortness of breath fever chills Exam/Review of Systems Vital Signs Vitals Vital Signs Date Time Temp Pulse Resp B/P Pulse Ox O2 Delivery O2 Flow Rate FiO2 07/26/16 07:25 97.9 88 18 114/57 94 07/23/16 08:15 Nasal Cannula 2.0 Intake and Output 07/25/16 07/25/16 07/26/16 15:00 23:00 07:00 Intake Total 1330 ml 200 ml Output Total 700 ml Balance 630 ml 200 ml Exam GENERAL: Elderly appearing lady comfortable at rest no acute distress VITAL SIGNS: per chart NECK: Supple. No JVD or lymphadenopathy. CARDIAC EXAM: S1, S2. No added sounds or murmurs. CHEST: clear bilaterally, No added sounds, rales or wheezes ABDOMEN: Soft, nontender. No guarding or rebound. EXTREMITIES: No cyanosis, clubbing wound VAC right lower extremity NEUROLOGIC: Generalized weakness. No focal deficits. Results Result Diagram: 07/24/16 0455 07/24/16 0455 Medications Medications Current Medications Ondansetron HCl (Zofran Inj) 4 mg Q6H PRN IV NAUSEA AND/OR VOMITING; Start 07/07 at 19:00 Acetaminophen (Tylenol Tab) 650 mg Q6H PRN PO PAIN LEVEL 1-3 OR FEVER Last administered on 07/20/16 01:07; Admin Dose 650 MG; Start 07/07/16 at 19:00 Acetaminophen/ Hydrocodone Bitart ([place] (5/325)) 1 tab Q6H PRN PO MODERATE PAIN LEVEL 4-6 Last administered on 07/26/16 07:53; Admin Dose 1 TAB; Start 07/07/16 at 19:00 Morphine Sulfate (morphine) 2 mg Q4H PRN IV SEVERE PAIN LEVEL 7-10 Last administered on 07/26/16 04:31; Admin Dose 2 MG; Start 07/07/16 at 19:00 Magnesium Hydroxide (Milk Of Mag) 30 ml DAILY PRN PO CONSTIPATION; Start at 19:00 Bisacodyl (Dulcolax) 5 mg DAILY PRN PO CONSTIPATION; Start 07/07/16 at 19:00 Zolpidem Tartrate (Ambien) 5 mg QHS PRN PO SLEEP; Start 07/07/16 at 19:00 Famotidine (Pepcid) 20 mg Q12 PO Last administered on 07/26/16 09:06; Admin Dose 20 MG; Start 07/07/16 at 21:00 Enoxaparin Sodium (Lovenox) 40 mg DAILY SC Last administered on 07/26/16 09:13 ; Admin Dose 40 MG; Start 07/08/16 at 09:00 Atorvastatin Calcium (Lipitor) 20 mg QHS PO Last administered on 07/25/16 20: 24; Admin Dose 20 MG; Start 07/07/16 at 21:00 Hydrochlorothiazide (Hydrochlorothiazide) 25 mg DAILY PO Last administered on 10:00; Admin Dose 25 MG; Start 07/08/16 at 09:00 Losartan Potassium (Cozaar) 25 mg DAILY PO Last administered on 07/25/16 10:00 ; Admin Dose 25 MG; Start 07/08/16 at 09:00 Metoprolol Tartrate (Lopressor) 100 mg BID PO Last administered on 07/26/16 09 :07; Admin Dose 100 MG; Start 07/07/16 at 21:00 Hydralazine HCl (Apresoline) 10 mg Q6H PRN IV SBP>160; Start 07/07/16 at 19:30 Aspirin 81 mg 81 mg DAILY PO Last administered on 07/26/16 09:06; Admin Dose 81 MG; Start 07/10/16 at 09:00 Ceftriaxone Sodium (Rocephin) 50 ml @ 100 mls/hr Q24H IVPB Last administered on 07/25/16 15:16; Admin Dose 100 MLS/HR; Start 07/10/16 at 15:00 Nicotine (Nicoderm 21 Mg/ 24hr) 1 patch DAILY TRANSDERM Last administered on 09:09; Admin Dose 1 PATCH; Start 07/12/16 at 11:00 IV Flush (NS 10 ml) 10 ml PRN PRN IV IV PROTOCOL; Start 07/25/16 at 11:30 Nystatin (Nystatin Powder) 1 applic BID TOP Last administered on 07/26/16 09: 09; Admin Dose 1 APPLIC; Start 07/25/16 at 21:00 JASON DE LA ROSA MD, [facility] Jul 26, 2016 10:16
[2016-07-26] MEDS: CEFTRIAXONE 1 GM/50 ML (PMX) 50 ML IVPB SCH (11:53)
== END 2016-07-26 18:15 | disposition home health service (06) | DRG 253 ==
LOC: FTE 14:20 → MS2 17:26 → ICU 07-18 21:17 → TEL 07-19 15:54 → MS2 07-23 20:55
PROVIDERS: ADMIT Family Medicine; ATTEND Family Medicine
PROC: 047J3DZ Dilation of Left External Iliac Artery with Intraluminal Device, Percutaneous Approach (ICD-10-PCS; 2016-07-14)
PROC: 047D3DZ Dilation of Left Common Iliac Artery with Intraluminal Device, Percutaneous Approach (ICD-10-PCS; 2016-07-14)
PROC: B41DYZZ Fluoroscopy of Aorta and Bilateral Lower Extremity Arteries using Other Contrast (ICD-10-PCS; 2016-07-14)
PROC: C23GYZZ Positron Emission Tomographic (PET) Imaging of Myocardium using Other Radionuclide (ICD-10-PCS; 2016-07-15)
PROC: 04CL0ZZ Extirpation of Matter from Left Femoral Artery, Open Approach (ICD-10-PCS; 2016-07-18)
PROC: 04CK0ZZ Extirpation of Matter from Right Femoral Artery, Open Approach (ICD-10-PCS; 2016-07-18)
PROC: 04UK0JZ Supplement Right Femoral Artery with Synthetic Substitute, Open Approach (ICD-10-PCS; 2016-07-18)
PROC: 041L0JH Bypass Left Femoral Artery to Right Femoral Artery with Synthetic Substitute, Open Approach (ICD-10-PCS; principal; 2016-07-18 17:00)
PROC: 0Y6V0Z0 Detachment at Right 4th Toe, Complete, Open Approach (ICD-10-PCS; 2016-07-21)
PROC: 0Y6T0Z0 Detachment at Right 3rd Toe, Complete, Open Approach (ICD-10-PCS; 2016-07-21)
PROC: 0HBRXZZ Excision of Toe Nail, External Approach (ICD-10-PCS; 2016-07-21)
PROC: 02HV33Z Insertion of Infusion Device into Superior Vena Cava, Percutaneous Approach (ICD-10-PCS; 2016-07-25)
PROC: B548ZZA Ultrasonography of Superior Vena Cava, Guidance (ICD-10-PCS; 2016-07-25)
DX: I70.263 Atherosclerosis of native arteries of extremities with gangrene, bilateral legs (principal); L03.115 Cellulitis of right lower limb; K76.89 Other specified diseases of liver; I11.9 Hypertensive heart disease without heart failure; E83.42 Hypomagnesemia; N28.1 Cyst of kidney, acquired; L97.511 Non-pressure chronic ulcer of other part of right foot limited to breakdown of skin; E78.5 Hyperlipidemia, unspecified; S99.201A Unspecified physeal fracture of phalanx of right toe, initial encounter for closed fracture; X58.XXXA Exposure to other specified factors, initial encounter; L60.0 Ingrowing nail; Z90.710 Acquired absence of both cervix and uterus; A49.01 Methicillin susceptible Staphylococcus aureus infection, unspecified site; I70.0 Atherosclerosis of aorta; M43.9 Deforming dorsopathy, unspecified; F17.210 Nicotine dependence, cigarettes, uncomplicated; I77.89 Other specified disorders of arteries and arterioles; R94.31 Abnormal electrocardiogram [ECG] [EKG]; D64.9 Anemia, unspecified; E87.6 Hypokalemia; M54.30 Sciatica, unspecified side
CPT/HCPCS: 36415; 36569; 71010; 73630; 75630; 75635; 75716; 76937; 78452; 80048; 80053; 80061; 80202; 80307; 81001; 81003; 83036; 83605; 83735; 84100; 84439; 84443; 85025; 85610; 85651; 85730; 86850; 86900; 86901; 86920; 87040; 87045; 87070; 87075; 87081; 87086; 87102; 88304; 88305; 88311; 93005; 93017; 93306; 93922; 96374; 96375; A9500; A9505; C1768; C1769; C1875; C1894; J0360; J0696; J1170; J1644; J1650; J2250; J2270; J2370; J2405; J2543; J2765; J2785; J3010; J3370; J3475; J3480; J7040; J7050; J7120; Q9967

== ENCOUNTER 2016-08-04 15:15 | Emergency (ER) | payer OTHER ==
[~2016-08-04] VITALS: Wt 45.5 kg
[~2016-08-04 15:15] MED LIST changes: +AMLO-147 PO; +ATOR20TA38 PO; -BACTDS PO; +CEFT1PIG2 IVPB; -CEPH-443 PO; +HYD25 PO; -IBUP400T22 PO; +LOSA25TA2 PO; +METO-407 PO
[2016-08-04] MEDS ORDERED: HYDR-906 PO (16:46)
--- NOTE | 2016-08-04 16:58 | ERD ---
ER Documentation Chief Complaint Date/Time DATE: 08/04/16 TIME: 16:54 Chief Complaint RAN OUT OF PAIN MEDS SINCE 3 DAYS AGO . NEEDS MEDICATION REFILL FOR [place]CO HPI This is a 65-year-old female with a history of hypertension, dyslipidemia, sciatica, PVD, right foot gangrene of her toes status post I&D, third and fourth digit amputation, currently on wound VAC and on Rocephin IV antibiotics at home who presents to the emergency department for a refill of her prescription. Patient states that she ran out of her pain medication [place] yesterday.. Patient states that she called her doctor Dr. Cagle, who states that he is unable to provide the patient with a refill of [place] over the phone. Patient was advised to come to the emergency department. Patient states that she is in the process of scheduling a follow-up visit with Dr. Cagle through her home health nurse. Patient is being seen by home health nurse every other day for IV antibiotics. She denies any fever, chills, chest pain, short is of breath , nausea, vomiting, excessive fluid loss or discharge from her wound. ROS All systems reviewed and are negative except as per history of present illness. Medications Home Meds Active Scripts Hydrocodone/Acetaminophen ([place] 5-325 Tablet) 1 Each Tablet, 1 TAB PO Q6H Y for PAIN, #7 TAB Prov:HEMALATHA WALDROP PA-C 08/04/16 Ceftriaxone Sod* (Rocephin* 1GM/50ML (PMX)) 1 Gm/50 Ml Iv.soln., 1 GM IVPB Q24H for 42 Days, EA Prov:REINALDO CAGLE MD 07/24/16 Tramadol HCl (Tramadol HCl) 50 Mg Tablet, 50 MG PO Q4 Y for PAIN, #20 TAB Prov:RADHA WITT MD 06/04/16 Reported Medications Hydrochlorothiazide* (Hydrochlorothiazide*) 25 Mg Tab, 25 MG PO DAILY, #30 TAB 07/07/16 Atorvastatin Calcium* (Atorvastatin Calcium*) 20 Mg Tablet, 20 MG PO QHS, #30 TAB 07/07/16 Losartan Potassium* (Cozaar*) 25 Mg Tablet, 25 MG PO DAILY, #30 TAB 07/07/16 Amlodipine Besylate* (Amlodipine Besylate*) 10 Mg Tablet, 10 MG PO DAILY, #30 TAB 07/07/16 Metoprolol Tartrate* (Lopressor*) 100 Mg Tablet, 100 MG PO BID, #60 TAB 07/07/16 Allergies Allergies: Coded Allergies: No Known Allergy (Unverified , 07/07/16) PMhx/Soc History of Surgery: Yes (hysterectomy) Anesthesia Reaction: No Hx Neurological Disorder: No Hx Respiratory Disorders: No Hx Cardiac Disorders: Yes (htn) Hx Psychiatric Problems: No Hx Miscellaneous Medical Probl: No Hx Alcohol Use: Yes (drinks beer) Hx Substance Use: No Hx Tobacco Use: Yes (5 sticks/day) Physical Exam Vitals Vital Signs Date Time Temp Pulse Resp B/P Pulse Ox O2 Delivery O2 Flow Rate FiO2 08/04/16 15:20 98.5 102 21 139/75 99 Physical Exam GENERAL: Well-developed, well-nourished female. Appears in no acute distress. HEAD: Normocephalic, atraumatic. EYES: Pupils are equally reactive bilaterally. EOMs grossly intact. No conjunctival erythema. ENT: Moist mucous membranes. No uvula deviation. No kissing tonsils. NECK: Supple. No lymphadenopathy or thyromegaly. No meningismus. LUNG: Clear to auscultation bilaterally. No rhonchi, wheezing, rales or coarse breath sounds. HEART: Regular rate and rhythm. No murmurs, rubs or gallops.. NEUROLOGIC: Alert and oriented. Moving all four extremities without any difficulty. Normal speech. Steady gait. SKIN: Normal color. Warm and dry. No rashes or lesions. PICC line noted in left upper arm. RIGHT LOWER EXTREMITY: in walking boot, wound vac in place. No drainage noted in tubing. Toes appear erythematous and slightly swollen. Patient able to ambulate without any difficulty. Procedures/MDM MEDICAL DECISION MAKING: This is a 65 year old female who presents for a medication refill. Patient states that she ran out of [place]. Patient has recent history of right foot gangrene of her toes status post I&D, third and fourth digit amputation, currently on wound VAC. At this time, I will provide the patient with a refill of [place]. I advised the patient that emergency room providers will not be able to provide her with any additional refills. Patient will need to see her PCP or specialist for further refills. CURES report states patient was last given Tramadol 60 tabs on 07/02/16. PRESCRIPTIONS: [place] 5-325 mg, 7 tabs, 0 refills DISCHARGE: At this time, patient is stable for discharge and outpatient management. I have instructed the patient to follow-up with his/her primary care physician in 1-2 days. I have discussed with the patient the possibility of needing to see a specialist for further workup and imaging studies if symptoms persist. I have instructed the patient to promptly return to the ER for any new or worsening symptoms including increased pain, fever, nausea, vomiting, weakness or LOC. The patient and/or family expressed understanding of and agreement with this plan. All questions were answered. Home care instructions were provided. Departure Diagnosis: Primary Impression: Encounter for medication refill Additional Impression: Amputated toe Laterality: right Qualified Code: Z89.421 - Amputated toe, right Condition: Stable Patient Instructions: Taking Medicine Safely Referrals: [facility] YOU HAVE RECEIVED A MEDICAL SCREENING EXAM AND THE RESULTS INDICATE THAT YOU DO NOT HAVE A CONDITION THAT REQUIRES URGENT TREATMENT IN THE EMERGENCY DEPARTMENT. FURTHER EVALUATION AND TREATMENT OF YOUR CONDITION CAN WAIT UNTIL YOU ARE SEEN IN YOUR DOCTORS OFFICE WITHIN THE NEXT 1-2 DAYS. IT IS YOUR RESPONSIBILITY TO MAKE AN APPOINTMENT FOR FOLOW-UP CARE. IF YOU HAVE A PRIMARY DOCTOR --you should call your primary doctor and schedule an appointment IF YOU DO NOT HAVE A PRIMARY DOCTOR YOU CAN CALL OUR PHYSICIAN REFERRAL HOTLINE AT IF YOU CAN NOT AFFORD TO SEE A PHYSICIAN YOU CAN CHOSE FROM THE FOLLOWING [facility] [address] [facility]. [facility] [address] [facility] [facility] [address] [facility] [facility] [address] [facility] [facility] [address] [facility]. [facility]. [address] [facility]. [facility] YOU HAVE RECEIVED A MEDICAL SCREENING EXAM AND THE RESULTS INDICATE THAT YOU DO NOT HAVE A CONDITION THAT REQUIRES URGENT TREATMENT IN THE EMERGENCY DEPARTMENT. FURTHER EVALUATION AND TREATMENT OF YOUR CONDITION CAN WAIT UNTIL YOU ARE SEEN IN YOUR DOCTORS OFFICE WITHIN THE NEXT 1-2 DAYS. IT IS YOUR RESPONSIBILITY TO MAKE AN APPOINTMENT FOR FOLOW-UP CARE. IF YOU HAVE A PRIMARY DOCTOR --you should call your primary doctor and schedule and appointment IF YOU DO NOT HAVE A PRIMARY DOCTOR YOU CAN CALL OUR PHYSICIAN REFERRAL HOTLINE AT . IF YOU CAN NOT AFFORD TO SEE A PHYSICIAN YOU CAN CHOSE FROM THE FOLLOWING [facility] INSTITUTIONS: [facility] [address] [place] [address] [facility] [address] [place] [address] [facility] [address] [place] [address] Additional Instructions: Call your primary care doctor/broadcast systems engineer TOMORROW for an appointment during the next 1-2 days.See the doctor sooner or return here if your condition worsens before your appointment time. Patient will be given [place] 5-325 mg 7 tabs, refills 0. Patient understand that she will not receive any additional narcotics from the ER. Patient will need to see her broadcast systems engineer/PCP for additional refills. HEMALATHA WALDROP PA-C Aug 04, 2016 16:58
== END 2016-08-04 16:45 | disposition home or self-care (01) ==
LOC: FTE 15:15 → E/R 16:45
DX: Z76.0 Encounter for issue of repeat prescription (principal); I10 Essential (primary) hypertension; F17.210 Nicotine dependence, cigarettes, uncomplicated; Z89.421 Acquired absence of other right toe(s)
CPT/HCPCS: 99281

== ENCOUNTER 2016-08-24 13:36 | Emergency (ER) | payer OTHER ==
[~2016-08-24] VITALS: Ht 154.9 cm; Wt 47.6 kg
[~2016-08-24 13:36] MED LIST changes: +HYDR-906 PO
[2016-08-24 13:52] VITALS: Ht 154.9 cm; Wt 47.6 kg
[2016-08-24] MEDS ORDERED: HYDR-906 PO (17:11)
--- NOTE | 2016-08-24 17:14 | ERD ---
ER Documentation Chief Complaint Date/Time DATE: 08/24/16 TIME: 17:13 Chief Complaint Right foot pain since May, currently on IV antibiotics. HPI 65-year-old woman requesting analgesics for pain to the foot. She is status post amputation of the toes of the right foot and states she ran out of her opioid analgesics. She states overall the wound over her foot is doing much better, there is no purulent discharge or drainage, no skin redness or swelling. She does have follow-up with her surgeon and states she is also scheduled to see her PMD. Patient denies fevers or chills, no paresis or paresthesias. She denies calf or leg swelling. ROS All systems reviewed and are negative except as per history of present illness. Medications Home Meds Active Scripts Hydrocodone/Acetaminophen ([place] 5-325 Tablet) 1 Each Tablet, 1 TAB PO TID Y for PAIN, #20 TAB Prov:SOLANGE RON MD 08/24/16 Hydrocodone/Acetaminophen ([place] 5-325 Tablet) 1 Each Tablet, 1 TAB PO Q6H Y for PAIN, #7 TAB Prov:HEMALATHA WALDROP PA-C 08/04/16 Ceftriaxone Sod* (Rocephin* 1GM/50ML (PMX)) 1 Gm/50 Ml Iv.soln., 1 GM IVPB Q24H for 42 Days, EA Prov:REINALDO PILLAI MD 07/24/16 Tramadol HCl (Tramadol HCl) 50 Mg Tablet, 50 MG PO Q4 Y for PAIN, #20 TAB Prov:RADHA WITT MD 06/04/16 Reported Medications Hydrochlorothiazide* (Hydrochlorothiazide*) 25 Mg Tab, 25 MG PO DAILY, #30 TAB 07/07/16 Atorvastatin Calcium* (Atorvastatin Calcium*) 20 Mg Tablet, 20 MG PO QHS, #30 TAB 07/07/16 Losartan Potassium* (Cozaar*) 25 Mg Tablet, 25 MG PO DAILY, #30 TAB 07/07/16 Amlodipine Besylate* (Amlodipine Besylate*) 10 Mg Tablet, 10 MG PO DAILY, #30 TAB 07/07/16 Metoprolol Tartrate* (Lopressor*) 100 Mg Tablet, 100 MG PO BID, #60 TAB 07/07/16 Allergies Allergies: Coded Allergies: No Known Allergy (Unverified , 07/07/16) PMhx/Soc Recent right third and fourth toe amputation, sciatica, peripheral vascular disease, hypertension, dyslipidemia History of Surgery: Yes (hysterectomy) Anesthesia Reaction: No Hx Neurological Disorder: No Hx Respiratory Disorders: No Hx Cardiac Disorders: Yes (htn) Hx Psychiatric Problems: No Hx Miscellaneous Medical Probl: No Hx Alcohol Use: Yes (drinks beer) Hx Substance Use: No Hx Tobacco Use: Yes (5 sticks/day) Smoking Status: Never smoker FmHx Family History: No diabetes Physical Exam Vitals Vital Signs Date Time Temp Pulse Resp B/P Pulse Ox O2 Delivery O2 Flow Rate FiO2 08/24/16 17:43 98.6 68 18 147/80 99 Room Air 08/24/16 13:52 97.2 63 18 141/84 98 Physical Exam GENERAL: Well-developed, well-nourished, well-hydrated, in no apparent distress , looks nontoxic in appearance HEENT: Moist mucous membranes, pink conjunctiva, no cervical spine tenderness or step-off deformities, no goiter, no jaundice or icterus, extraocular movements intact without pain. No submandibular induration, and no pharyngeal erythema NEURO: Alert and oriented 3, cranial nerves II through XII intact bilaterally, pupils equal round reactive to light, no focal deficits or facial asymmetry, sensation intact distally Strength 5/5 in upper and lower extremities bilaterally CARDIAC: Regular rate and rhythm, no murmurs rubs or gallops LUNGS: Clear bilaterally no wheezing crackles or stridor ABDOMEN: Soft nontender, no guarding, no rigidity, no rebound, no psoas sign no obturator sign. Normoactive bowel sounds SKIN: Warm and dry to touch, recent surgical changes over the third and fourth toes of the right foot without signs of abscess or cellulitis. EXTREMITIES: No clubbing cyanosis or edema, calves are bilaterally symmetrical, no Homans sign, no popliteal cord sign. Distal pulses equal and bilateral PSYCH: Normal affect without agitation or irritability Procedures/MDM Patient has good follow-up with her surgeon and PMD and states overall she has been improving. I agreed to give her a short course of opioid analgesics until she follows up. Patient feels much better at this time, and vital signs are normal, symptoms have improved. I did give strict instructions to return to the ED if symptoms continue or worsen, patient will otherwise follow-up with primary care physician. Patient understood instructions and agreed to plan. Departure Diagnosis: Primary Impression: Post-op pain Additional Impression: Amputated toe of left foot Condition: Good Patient Instructions: Post-Op Tips: Foot, Post Op Wound Check, Pain Referrals: REINALDO PILLAI MD, DAVID MD Aug 24, 2016 17:14
[2016-08-24 17:43] VITALS: BP 147/80; PULSE 68; RESP 18; TEMP 98.6
== END 2016-08-24 17:51 | disposition home or self-care (01) ==
LOC: E/R 13:36
DX: G89.18 Other acute postprocedural pain (principal); M79.671 Pain in right foot; I10 Essential (primary) hypertension; F17.210 Nicotine dependence, cigarettes, uncomplicated; Z89.421 Acquired absence of other right toe(s)
CPT/HCPCS: 99283

== ENCOUNTER 2018-05-18 11:23 | Emergency (ER) | END 2018-05-18 14:01 | disposition home or self-care (01) ==

== ENCOUNTER 2018-12-22 12:24 | Emergency (ER) | payer OTHER ==
[~2018-12-22] VITALS: Wt 51.8 kg
[~2018-12-22 12:24] MED LIST changes: +DOXY100T21 PO; -HYD25 PO; +HYDR-4011 PO; -HYDR-906 PO; +HYDR25TA6 PO
[2018-12-22] MEDS ORDERED: DIPHENOXYLATE/ATROPINE TAB PO ONE (15:30)
[2018-12-22] MEDS ORDERED: SOD CHLORIDE 0.9% 1,000 ML IV STA (15:30)
[2018-12-22] MEDS ORDERED: traMADol 50 MG TAB PO ONE (15:30)
[2018-12-22] MEDS ORDERED: AMLO-147 PO (16:32)
[2018-12-22] MEDS ORDERED: DIPH1TAB PO (16:47)
[2018-12-22] MEDS ORDERED: TRAM50TA2 PO (16:47)
--- NOTE | 2018-12-22 16:52 | ERD ---
ER Documentation Chief Complaint Chief Complaint persist diarrhea x2wks; pain, weak BLE x3-4wks. steady gait. not dizzy HPI This is a very pleasant 68-year-old female who presents to the emergency department complaining of intermittent loose watery stools for 2 weeks. The patient indicates that she will have roughly 3 episodes of loose watery stools for several days in a row. And she will have roughly one day where it resolved but then returned the following day. The patient indicates she complains of mild abdominal cramping just prior to the onset of stooling. The patient indicates she is never had any similar symptoms in the past. She has not changed her diet. She is had no recent hospitalizations. She has not had any recent antibiotics or changes in her medications. She denies any fever shaking or chills. She denies any recent travel. She had no sick contacts. The patient does state that she is weak. Contrary to the triage note she states there is no specific weakness of her upper or lower extremities. She denies a headache. ROS All systems reviewed and are negative except as per history of present illness. Medications Home Meds Active Scripts Tramadol HCl (Tramadol HCl) 50 Mg Tablet, 50 MG PO Q6 PRN for PAIN, #20 TAB Prov:PRISCILA BARRIOS MD 12/22/18 Diphenoxylate HCl/Atropine (Lomotil 2.5-0.025 mg Tablet) 1 Each Tablet, 1 TAB PO QID PRN for DIARRHEA, #10 TAB Prov:PRISCILA BARRIOS MD 12/22/18 Reported Medications Amlodipine Besylate* (Amlodipine Besylate*) 10 Mg Tablet, 10 MG PO DAILY, #30 TAB 12/22/18 Discontinued Reported Medications Hydrochlorothiazide* (Hydrochlorothiazide*) 25 Mg Tab, 25 MG PO DAILY, #30 TAB 07/07/16 Atorvastatin Calcium* (Atorvastatin Calcium*) 20 Mg Tablet, 20 MG PO QHS, #30 TAB 07/07/16 Losartan Potassium* (Cozaar*) 25 Mg Tablet, 25 MG PO DAILY, #30 TAB 07/07/16 Amlodipine Besylate* (Amlodipine Besylate*) 10 Mg Tablet, 10 MG PO DAILY, #30 TAB 07/07/16 Metoprolol Tartrate* (Lopressor*) 100 Mg Tablet, 100 MG PO BID, #60 TAB 07/07/16 Discontinued Scripts Tramadol HCl (Tramadol HCl) 50 Mg Tablet, 50 MG PO Q4 PRN for PAIN, #15 TAB Prov:RADHA WITT MD 05/18/18 Doxycycline Monohydrate* (Doxycycline Monohydrate*) 100 Mg Tablet, 100 MG PO BID for 7 Days, TAB Prov:RADHA WITT MD 05/18/18 Hydrocodone/Acetaminophen ([place] 5-325 Tablet) 1 Each Tablet, 1 TAB PO TID PRN for PAIN, #20 TAB Prov:SOLANGE RON MD 08/24/16 Hydrocodone/Acetaminophen ([place] 5-325 Tablet) 1 Each Tablet, 1 TAB PO Q6H PRN for PAIN, #7 TAB Prov:HEMALATHA WALDROP PA-C 08/04/16 Ceftriaxone Sod* (Rocephin* 1GM/50ML (PMX)) 1 Gm/50 Ml Iv.soln., 1 GM IVPB Q24H for 42 Days, EA Prov:REINALDO PILLAI MD 07/24/16 Tramadol HCl (Tramadol HCl) 50 Mg Tablet, 50 MG PO Q4 PRN for PAIN, #20 TAB Prov:RADHA WITT MD 06/04/16 Allergies Allergies: Coded Allergies: No Known Allergy (Unverified , 12/22/18) PMhx/Soc History of Surgery: Yes (hysterectomy) Anesthesia Reaction: No Hx Neurological Disorder: No Hx Respiratory Disorders: No Hx Cardiac Disorders: Yes (htn) Hx Psychiatric Problems: No Hx Miscellaneous Medical Probl: No Hx Alcohol Use: Yes (drinks beer) Hx Substance Use: No Hx Tobacco Use: Yes (5 sticks/day) Smoking Status: Current every day smoker Physical Exam Vitals Vital Signs Date Temp Pulse Resp B/P (MAP) Pulse Ox O2 O2 Flow FiO2 Time Delivery Rate 12/22/18 98.3 57 16 154/79 98 Room Air 15:56 (104) 12/22/18 98.1 59 18 183/79 95 12:31 (113) Physical Exam Constitutional:Well-developed. Well-nourished. HEENT:Normocephalic. Atraumatic.Pupils were equal round reactive to light. Dry mucous membranes.No tonsillar exudates. Respiratory: Not using accessory muscles of respiration.Lungs were clear to auscultation bilaterally. No rhonchi. No rales. No wheezing. Cardiovascular: Regular rate regular rhythm.No murmurs. No rubs were appreciated.S1, S2 normal. Distal pulses are palpable 2+ bilaterally. GI: Abdomen was soft. Nontender. Non Distended. No pulsatile abdominal masses or bruits. No rebound. No guarding. Bowel sounds were present and normal. Muscle skeletal: Full range of motion of both the upper and lower extremities bilaterally.Normal muscle tone.No assymetrical calf tenderness or swelling. Skin: No petechia, no purpura. No lesions on the palms or the soles of the feet. No maculopapular rash. NEURO: Patient was alert, awake, orientated x3.No facial droop. Gait observed and normal with no ataxia.Speech had regular rate and rhythm. No focal neurological deficits. Result Diagram: 12/22/18 1534 12/22/18 1534 Results 24 hrs Laboratory Tests Test 12/22/18 15:34 White Blood Count 7.0 10^3/ul Red Blood Count 4.71 10^6/ul Hemoglobin 15.5 g/dl Hematocrit 46.8 % Mean Corpuscular Volume 99.4 fl Mean Corpuscular Hemoglobin 32.9 pg Mean Corpuscular Hemoglobin Concent 33.1 g/dl Red Cell Distribution Width 13.0 % Platelet Count 168 10^3/UL Mean Platelet Volume 11.5 fl Immature Granulocytes % 0.100 % Neutrophils % 57.6 % Lymphocytes % 33.4 % Monocytes % 5.5 % Eosinophils % 3.0 % Basophils % 0.4 % Nucleated Red Blood Cells % 0.0 /100WBC Immature Granulocytes # 0.010 10^3/ul Neutrophils # 4.0 10^3/ul Lymphocytes # 2.3 10^3/ul Monocytes # 0.4 10^3/ul Eosinophils # 0.2 10^3/ul Basophils # 0.0 10^3/ul Nucleated Red Blood Cells # 0.0 10^3/ul Sodium Level 145 mmol/L Potassium Level 4.3 mmol/L Chloride Level 107 mmol/L Carbon Dioxide Level 26 mmol/L Anion Gap 12 Blood Urea Nitrogen 11 mg/dl Creatinine 0.74 mg/dl Est Glomerular Filtrat Rate mL/min > 60 mL/min Glucose Level 104 mg/dl Calcium Level 10.2 mg/dl Total Bilirubin 0.7 mg/dl Direct Bilirubin 0.00 mg/dl Indirect Bilirubin 0.7 mg/dl Aspartate Amino Transf (AST/SGOT) 20 IU/L Alanine Aminotransferase (ALT/SGPT) 14 IU/L Alkaline Phosphatase 57 IU/L Total Protein 7.6 g/dl Albumin 4.6 g/dl Globulin 3.00 g/dl Albumin/Globulin Ratio 1.53 Current Medications Medications Dose Sig/Maureen Start Time Status Last (Trade) Ordered Route PRN Stop Time Admin Dose Reason Admin Sodium 1,000 ml @ Q1H STAT 12/22/18 DC 12/22/18 Chloride 1,000 mls/hr IV 15:30 15:39 12/22/18 16:29 1 tab ONCE ONCE 12/22/18 DC 12/22/18 Diphenoxylate PO 15:30 15:52 HCl/ 12/22/18 15:31 Atropine (Lomotil) Tramadol 50 mg ONCE ONCE 12/22/18 DC 12/22/18 HCl PO 15:30 15:39 (Ultram) 12/22/18 15:31 Procedures/MDM This is a 68-year-old female that presents to the emergency department area. The patient had no risk factors for C. difficile. The patient had no severe electrolyte abnormalities or signs of sepsis. The patient did show signs of mild clinical dehydration and was given IV fluids in the emergency department. The patient does have an appointment with her primary care physician in the next several days. The patient was given Lomotil in the emergency department. The patient was also requesting medication of her tramadol. She was given 1 tablet of tramadol emergency department. She stated her symptoms have resolved. She had no focal neurological deficits on physical exam and I did feel her weakness was more likely result of clinical dehydration versus a cerebrovascular accident. The patient was discharged home in fair condition. They were instructed to return to the emergency department at any time if there was any worsening of their condition. The patient stated they would follow up with their PCP in the next 24-48 hours to initiate a suitable medication regimen under the care of their PCP as well as to allow their PCP to monitor any drug reactions. The patient was discharged home with prescriptions after they gave informed consent to the new medication. They were also fully informed by myself on the adverse effects and adverse drug interactions in order to provide adequate safeguards to prevent possible adverse reactions to medications. Departure Diagnosis: Primary Impression: Dehydration with hypernatremia Additional Impression: Diarrhea in adult patient Condition: Fair Patient Instructions: Diarrhea, Unk Cause (Adult) Report Pendg Referrals: [facility] (PCP) PRISCILA BARRIOS MD Dec 22, 2018 16:52
[2018-12-22 17:05] VITALS: BP 149/75; PULSE 59; RESP 15
== END 2018-12-22 17:08 | disposition home or self-care (01) ==
LOC: E/R 12:24
DX: E87.0 Hyperosmolality and hypernatremia (principal); I10 Essential (primary) hypertension; F17.200 Nicotine dependence, unspecified, uncomplicated; E86.0 Dehydration
CPT/HCPCS: 80053; 85025; 96360; 99284; J7030